=== PATIENT | male | born 1985 ===

== ENCOUNTER 2017-09-17 02:20 | Emergency (ER) | payer SELFPAY ==
--- NOTE | 2017-09-17 02:51 | C.PDOC ---
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 Patient has no chest pain at this time and is currently speaking in complete sentences. Denies fever, chills, nausea, or vomiting. Time Seen by Provider: 09/17/17 02:51 Chief Complaint (Nursing): Upper Extremity Problem/Injury History Per: Patient History/Exam Limitations: no limitations Onset/Duration Of Symptoms: Hrs Current Symptoms Are (Timing): Better Quality: "Pain" Severity: Mild Pain Scale Rating Of: 4 Recent travel outside of the [place]: No Past Medical History Reviewed: Historical Data, Nursing Documentation, Vital Signs Vital Signs: Last Vital Signs Temp 97.8 F 09/17/17 04:12 Pulse 55 L 09/17/17 04:12 Resp 16 09/17/17 04:12 BP 116/76 09/17/17 04:12 Pulse Ox 100 09/17/17 04:20 - Medical History PMH: No Chronic Diseases Surgical History: No Surg Hx Family History: States: Unknown Family Hx - Social History Hx Alcohol Use: Yes Hx Substance Use: No - Immunization History Hx Tetanus Toxoid Vaccination: No Hx Influenza Vaccination: No Hx Pneumococcal Vaccination: No Review Of Systems Constitutional: Negative for: Fever, Chills Cardiovascular: Positive for: Other ("Pounding" heart rate) Gastrointestinal: Negative for: Nausea, Vomiting Musculoskeletal: Positive for: Shoulder Pain (Left) Skin: Negative for: Rash Neurological: Negative for: Weakness Psych: Negative for: Anxiety Physical Exam - Physical Exam Appears: Non-toxic, No Acute Distress Skin: Warm, Dry Head: Normacephalic Eye(s): bilateral: Normal Inspection Oral Mucosa: Moist Neck: Supple Chest: Symmetrical, No Tenderness Cardiovascular: Rhythm Regular Respiratory: No Rales, No Rhonchi, No Wheezing Gastrointestinal/Abdominal: Soft, No Tenderness Back: Normal Inspection Extremity: Normal ROM Extremity: Bilateral: Atraumatic Pulses: Left Dorsalis Pedis: Normal, Right Dorsalis Pedis: Normal Neurological/Psych: Oriented x3, Normal Speech, Normal Cognition Gait: Steady ED Course And Treatment - Laboratory Results Result Diagrams: 09/17/17 03:13 09/17/17 03:13 ECG: Interpreted By Me, Viewed By Me ECG Rhythm: Sinus Rhythm (67), Nonspecific Changes O2 Sat by Pulse Oximetry: 100 Pulse Ox Interpretation: Normal Progress Note: EKG, blood work, and urinalysis ordered. Ecotrin administered. Reevaluation Time: 05:06 Reassessment Condition: Improved Medical Decision Making Medical Decision Making: I considered the following diagnoses: acute coronary syndrome, pulmonary embolism, lower respiratory infection, aortic dissection/aneurysm, pneumothorax , pericarditis, esophagitis/GERD, zoster and esophageal rupture but found them to be unlikely based on the history, physical exam, and diagnostics. My conclusions regarding the unlikely diagnoses were based on: the absence of significant EKG abnormalities, the lack of suggestive x-ray findings, the absence of significant abnormalities on cardiac monitoring, the absence of asymmetric pulses, Upon provider reevaluation patient is feeling better, is medically stable, and requires no further treatment in the ED at this time. Patient will be discharged home . Counseling was provided and all questions were answered regarding diagnosis and need for follow up with the referred clinic. There is agreement to discharge plan. Return if symptoms persist or worsen. Disposition Counseled Patient/Family Regarding: Studies Performed, Diagnosis, Need For Followup - Disposition Referrals: [facility] [Outside] [facility] [Outside] Disposition: HOME/ ROUTINE Disposition Time: 02:51 Condition: FAIR Instructions: Palpitations (ED) Forms: [employer] ([place]) Print Language: CHADIAN - Clinical Impression Clinical Impression: Palpitations - Scribe Statement The provider has reviewed the documentation as recorded by the Scribreina Chappell All medical record entries made by the Scribe were at my direction and personally dictated by me. I have reviewed the chart and agree that the record accurately reflects my personal performance of the history, physical exam, medical decision making, and the department course for this patient. I have also personally directed, reviewed, and agree with the discharge instructions and disposition.
[2017-09-17] MEDS ORDERED: Aspirin 325 mg EC Tablets PO STA (03:01)
[2017-09-17 03:24] LABS: CHLORIDE 100 mmol/L (98-107); SODIUM 134 mmol/L (132-148)
[2017-09-17 03:25] LABS: POTASSIUM 3.1 mmol/L (3.6-5.2)
[2017-09-17 03:27] LABS: ALB/GLOB RATIO 1.1 (1.0-2.1); ALKALINE PHOSPHATASE 93 U/L (38-126); ALT/SGPT 55 U/L (21-72); AST/SGOT 25 U/L (17-59); BILIRUBIN,TOTAL 0.5 mg/dL (0.2-1.3); BLOOD UREA NITROGEN 13 mg/dL (9-20); CARBON DIOXIDE 23 mmol/L (22-30); GFR AFRICAN-AMERICAN > 60; GLUCOSE,RANDOM 107 mg/dL (75-110); TOTAL PROTEIN 7.9 g/dL (6.3-8.3)
[2017-09-17 03:28] LABS: BASO # 0.1 K/uL (0.0-0.2); BASO % 0.5 % (0.0-2.0); CALCIUM 8.1 mg/dl (8.6-10.4); EOS # 0.3 K/uL (0.0-0.7); EOS % 2.7 % (0.0-4.0); HEMATOCRIT 42.5 % (35.0-51.0); LYMPH # 3.5 K/uL (1.0-4.3); LYMPH % 29.6 % (20.0-40.0); MEAN CELL VOLUME 82.3 fL (80.0-94.0); MEAN CORPUSCULAR HEMOGLOBIN 27.6 pg (27.0-31.0); MEAN CORPUSCULAR HGB CONC 33.5 g/dL (33.0-37.0); MEAN PLATELET VOLUME 7.9 fL (7.2-11.7); MONO # 0.8 K/uL (0.0-0.8); MONO % 7.1 % (0.0-10.0); RED CELL DISTRIBUTION WIDTH 13.7 % (11.5-14.5); WHITE BLOOD COUNT 11.8 K/uL (4.8-10.8)
[2017-09-17 04:16] VITALS: BP 116/76; PULSE 55; RESP 16; TEMP 97.8
[2017-09-17 04:17] VITALS: O2SAT 100
--- NOTE | 2017-09-18 21:42 | CARD ---
APPROVED REPORT EKG Measurement Heart [id number] <Conclusion> Normal sinus rhythm Normal ECG
== END 2017-09-17 05:09 | disposition home or self-care (01) ==
LOC: C.ER 02:20
DX: R00.2 Palpitations (principal)

== ENCOUNTER 2018-05-12 09:39 | Inpatient (IN) | payer OTHER ==
--- NOTE | 2018-05-12 10:04 | C.PDOC ---
History Of Present Illness Patient sent from [facility] for acute appendicitis to go to OR ( [facility] currently shut down due to humidity issues). Patient c/o mild RLQ pain, started on monday. Given Zosyn at [facility]. Time Seen by Provider: 05/12/18 09:40 Chief Complaint (Nursing): Abdominal Pain History Per: Patient History/Exam Limitations: no limitations Onset/Duration Of Symptoms: Days (2) Quality Of Discomfort: "Pain" Associated Symptoms: Nausea Past Medical History Reviewed: Historical Data, Nursing Documentation, Vital Signs Vital Signs: Last Vital Signs Temp 102.5 F H 05/13/18 08:38 Pulse 90 05/13/18 08:38 Resp 18 05/13/18 08:38 BP 120/63 05/13/18 08:38 Pulse Ox 97 05/13/18 08:38 - Medical History PMH: No Chronic Diseases Family History: States: No Known Family Hx - Social History Hx Alcohol Use: Yes Hx Substance Use: No - Immunization History Hx Tetanus Toxoid Vaccination: No Hx Influenza Vaccination: No Hx Pneumococcal Vaccination: No Review Of Systems Constitutional: Positive for: Fever, Chills Cardiovascular: Negative for: Chest Pain Respiratory: Negative for: Cough, Shortness of Breath Gastrointestinal: Positive for: Nausea, Vomiting, Abdominal Pain Genitourinary: Negative for: Dysuria Physical Exam - Physical Exam Appears: Well, Non-toxic, In Acute Distress (in mild pain ) Skin: Normal Color, Warm, Dry Oral Mucosa: Moist Cardiovascular: Rhythm Regular Respiratory: Normal Breath Sounds, No Rales, No Rhonchi, No Wheezing Gastrointestinal/Abdominal: Soft, Tenderness ((+) McBurney's ), No Distention, No Guarding, Rebound Back: Normal Inspection, No CVA Tenderness Neurological/Psych: Oriented x3 ED Course And Treatment - Laboratory Results Result Diagrams: 05/13/18 08:07 05/13/18 08:07 O2 Sat by Pulse Oximetry: 98 (RA) Pulse Ox Interpretation: Normal Progress Note: 10:00am- Called by [facility] radiologist, states patient has perforated appendicitis only, no diverticulitis. Patient febrile, tylenol IN ordered. He states he is currently comfortably, does not want pain medicaion. resident hall director Titi spoken with, patient to be admitted to Dr. Jame Shelton service for acute appendicitis. 11:15am- Called by surgery resident, requests patient be changed to medical admission instead of surgical under Dr. Shelton. Pending hospitalist call back. - Physician Consult Information Physician Contacted: Daisy Whitman Outcome Of Conversation: Discussed patient with hospitalist, she agree with admission for acute appendicitis with perforation with surgery on consult. Disposition - Disposition Disposition: HOSPITALIZED Disposition Time: 10:16 Condition: STABLE - Clinical Impression Clinical Impression: Acute perforated appendicitis Decision To Admit - Pt Status Changed To: Hospital Disposition Of: Inpatient - Admit Certification Admit to Inpatient:: After my assessment, the patient will require hospitalization for at least two midnights. This is because of the severity of symptoms shown, intensity of services needed, and/or the medical risk in this patient being treated as an outpatient. - InPatient: Physician Admission Certification:: see notes - . Bed Request Type: Regular Admitting Physician: Daisy Whitman Patient Diagnosis: Acute perforated appendicitis
[2018-05-12] MEDS: metroNIDAZOLE IV 500 mg/100 ml 500 MG/100 ML BAG IVPB SCH ×2 (12:21→21:00)
--- NOTE | 2018-05-12 12:41 | CP.PCM.HP ---
<Chas Jacoboemily - Last Filed: 05/12/18 20:25> History of Present Illness - History of Present Illness History of Present Illness: Patient was seen and examined in room 650A with sister present bedside. Patient is a FULL CODE status at this time. Patient's sister is his emergency contact. Her name is Sapna Rodriguez . She can be reached at [phone]. CC: abdominal pain HPI: 32 year old male with no past medical history significant presents with complaints of abdominal pain which started two days ago. Patient rated the pain as a 10/10 on . He states that the pain was located inferior to the umbilical region and radiated to the left and right lower quadrants over the course of the past two days. Patient admits to nausea and vomiting. He admits to three non bloody- non bilious episodes last night. He states that he has not eaten since when his symptoms started. Patient states that he decided to go to the [facility] ER when his symptoms did not resolve. Patient admits to subjective fevers. Patient denies chest pain, headaches, diarrhea, constipation at this point. Surgical team was consulted at [facility], however due to some operational difficulties, could not be surgically managed there. Patient was then transferred to [facility] here for ongoing management. PMHx- denies PSHx- denies Fam Hx- Mom has a pacemaker and HTN. Father has DM, Hypercholesterolemia and HTN. Maternal grandmother has DM, and was diagnosed with breast cancer at the age of 76. . Medications- Tylenol PRN Social- Admits to social alcohol use. Smokes 1-2 cigarettes a week for the past year. Denies illciit drug use Allergies- NKDA PMD- denies Present on Admission - Present on Admission Any Indicators Present on Admission: No Review of Systems - Review of Systems Systems not reviewed;Unavailable: Language Barrier - Constitutional Constitutional: Fever. absent: Weakness - EENT Eyes: absent: Blurred Vision, Change in Vision Ears: absent: Ear Pain, Dizziness Nose/Mouth/Throat: absent: Nasal Congestion - Cardiovascular Cardiovascular: absent: Chest Pain, Chest Pain at Rest, Dyspnea - Respiratory Respiratory: absent: Cough, Dyspnea - Gastrointestinal Gastrointestinal: Abdominal Pain, Nausea, Vomiting. absent: Diarrhea, Loose Stools - Genitourinary Genitourinary: Dysuria. absent: Hematuria - Musculoskeletal Musculoskeletal: Back Pain - Integumentary Integumentary: absent: Dry Skin, Swelling - Neurological Neurological: absent: Tremor, Weakness - Psychiatric Psychiatric: absent: Anxiety, Confusion, Hopelessness - Hematologic/Lymphatic Hematologic: absent: Easy Bleeding, Easy Bruising Past Patient History - Past Medical History & Family History Past Medical History?: No - Past Social History Smoking Status: Light Smoker < 10 Cigarettes Daily Alcohol: Social Drugs: Denies - MUSCULOSKELETAL/RHEUMATOLOGICAL Hx Falls: No - PSYCHIATRIC Hx Substance Use: No - SURGICAL HISTORY Hx Surgeries: No - ANESTHESIA Hx Anesthesia: No Hx Anesthesia Reactions: No Hx Malignant Hyperthermia: No Meds Allergies/Adverse Reactions: Allergies Allergy/AdvReac Type Severity Reaction Status Date / Time heparin Allergy ITCHING Verified 05/16/18 05:47 Physical Exam - Constitutional Appears: Non-toxic, No Acute Distress - Head Exam Head Exam: ATRAUMATIC, NORMAL INSPECTION, NORMOCEPHALIC - Eye Exam Eye Exam: EOMI, Normal appearance, PERRL. absent: Scleral icterus - ENT Exam ENT Exam: Mucous Membranes Moist - Neck Exam Neck exam: Positive for: Full Rom - Respiratory Exam Respiratory Exam: Clear to Auscultation Bilateral, NORMAL BREATHING PATTERN. absent: Wheezes - Cardiovascular Exam Cardiovascular Exam: REGULAR RHYTHM, +S1, +S2 - GI/Abdominal Exam GI & Abdominal Exam: Guarding, Rebound, Soft, Tenderness. absent: Distended, Firm, Rigid - Expanded GI/Abdominal Exam Expanded Expanded GI & Abdominal Exam: Rovsing's Sign, McBurney's Point Tenderness. absent: Pedersen's Sign - Extremities Exam Extremities exam: Positive for: full ROM, normal capillary refill, pedal edema, pedal pulses present - Back Exam Back exam: FULL ROM - Neurological Exam Neurological exam: Alert, Oriented x3 - Psychiatric Exam Psychiatric exam: Normal Affect, Normal Mood - Skin Skin Exam: Dry, Normal Color, Warm Results - Vital Signs Recent Vital Signs: Last Vital Signs Temp 101.4 F H 05/12/18 10:59 Pulse 86 05/12/18 10:59 Resp 18 05/12/18 10:59 BP 106/68 05/12/18 10:59 Pulse Ox 98 05/12/18 11:16 Assessment & Plan (1) Perforated appendicitis Assessment and Plan: CT imaging findings-Acute appendicitis with periappendiceal 2.6 x 2.5 cm phlegmonous collection of fluid and air without identified wall/ capsuleUnremarkable contrast enhanced CT of the abdomen and pelvis. In contradistinction to the preliminary report provided by [facility], there is no ileal diverticulitis ; the fluid collection described is related to appendiceal rupture. Sigmoid diverticulosis with mild nonspecific surrounding inflammatory change which may represent acute diverticulitis versus extension of inflammatory change from nearby appendiceal process. Refer to complete report NPO, IVF N/S at this time. On Flagyl and Meropenem for abx. Pain control at this time Tylenol PRN for fevers F/U Coags, AM labs, ESR F/U surgical and ID recommendations F/U EKG and CXR Status: Acute (2) Dysuria Assessment and Plan: F/U UA, UC Fluid Hydration Status: Acute (3) Electrolyte abnormality Assessment and Plan: Low Potassium- repleted Likely secondary to vomiting Monitor Status: Acute (4) Prophylactic measure Assessment and Plan: SCDs, Ambulates GI prophylaxis not currently indicated at this time Status: Acute <Daisy Whitman - Last Filed: 05/19/18 17:55> Results - Vital Signs Recent Vital Signs: Last Vital Signs Temp 98.8 F 05/19/18 15:00 Pulse 73 05/19/18 15:00 Resp 20 05/19/18 15:00 BP 117/76 05/19/18 15:00 Pulse Ox 97 05/19/18 15:00 - Labs Result Diagrams: 05/19/18 11:31 05/19/18 11:31 Labs: Laboratory Results - last 24 hr 05/18/18 05/19/18 05/19/18 22:46 11:31 11:31 WBC 22.9 H RBC 4.11 L Hgb 11.3 L D Hct 33.3 L MCV 81.2 MCH 27.5 MCHC 33.9 RDW 14.0 Plt Count 379 MPV 7.2 Neut % (Auto) 87.9 H Lymph % (Auto) 5.2 L Brooks % (Auto) 4.2 Eos % (Auto) 2.3 Baso % (Auto) 0.4 Neut # (Auto) 20.2 H Lymph # (Auto) 1.2 Brooks # (Auto) 1.0 H Eos # (Auto) 0.5 Baso # (Auto) 0.1 Neutrophils % (Manual) 85 H Band Neutrophils % 3 H Lymphocytes % (Manual) 5 L Monocytes % (Manual) 6 Eosinophils % (Manual) 1 Toxic Granulation Present Platelet Estimate Normal Polychromasia Slight Hypochromasia (manual) Slight Anisocytosis (manual) Slight Sodium 135 Potassium 3.8 Chloride 100 Carbon Dioxide 26 Anion Gap 13 BUN < 2 L Creatinine 0.6 L Est GFR ( Amer) > 60 Est GFR (Non-Af Amer) > 60 Random Glucose 136 H Calcium 7.9 L Phosphorus 2.2 L Magnesium 1.8 Total Bilirubin 0.6 AST 31 ALT 31 Alkaline Phosphatase 78 Total Protein 5.6 L Albumin 2.9 L Globulin 2.7 Albumin/Globulin Ratio 1.1 Urine Color Straw Urine Clarity Clear Urine pH 5.0 Ur Specific [place] 1.003 Urine Protein Negative Urine Glucose (UA) Normal Urine Ketones Negative Urine Blood 1+ H Urine Nitrate Negative Urine Bilirubin Negative Urine Urobilinogen Normal Ur Leukocyte Esterase Neg Urine WBC (Auto) 1 Urine RBC (Auto) < 1 Attending/Attestation - Attestation I have personally seen and examined this patient.: Yes I have fully participated in the care of the patient.: Yes I have reviewed all pertinent clinical information: Yes Notes (Text): Patient was seen and examined. History taken from the patient On examination he has tender lower abdomen with guarding,Not distended,no rigidity 05/19/18 17:48 05/19/18 17:54
[2018-05-12] MEDS: Piperacillin/Tazobact 3.375 GM in Sodium Chloride 100 ML IVPB SCH ×2 (12:50→18:15)
[2018-05-12] MEDS: Sodium Chloride 0.9% 1,000 ML IV SCH ×2 (12:52→19:12)
--- NOTE | 2018-05-12 14:22 | CP.PCM.CON ---
<Lorenzo Cox - Last Filed: 05/12/18 14:12> History of Present Illness - History of Present Illness History of Present Illness: 32M transfer from [facility] came in today complaining of new onset , sharp, constant right lower quadrant pain radiating to the back. It came on all of a sudden while he was at work. Pt has never experienced this type of pain before. He does not know if anything makes the pain better or worse. He has not tried any medications to improve the pain. He admits to having subjective fevers of unknown temperature and 3 episodes of NBNB vomiting on Monday evening. He has not had a bowel movement for the past 2 days, which is unusual for him. Admits to a loss of apetite. Denies any rectal bleeding or hematemesis. Denies any SOB, CP, or urinary symptoms. PMH: none PSH: none FH: Mother - pacemaker Social: socially drinks alcohol, no drugs or tobacco ALL: NKDA Meds: none Review of Systems - Constitutional Constitutional: Chills, Fever - EENT Eyes: absent: Blurred Vision, Change in Vision Ears: absent: Ear Discharge, Ear Pain Nose/Mouth/Throat: absent: Nasal Congestion, Tongue Swelling - Cardiovascular Cardiovascular: absent: Chest Pain, Dyspnea - Respiratory Respiratory: absent: Cough, Chest Congestion - Gastrointestinal Gastrointestinal: Abdominal Pain, Bloating, Nausea, Vomiting. absent: Change in Stool Character, Constipation - Genitourinary Genitourinary: absent: Dysuria, Hematuria - Musculoskeletal Musculoskeletal: Back Pain. absent: Abnormal Gait - Integumentary Integumentary: Dry Skin. absent: Erythema - Neurological Neurological: absent: Abnormal Gait, Abnormal Hearing - Psychiatric Psychiatric: absent: Visual Hallucinations, Tactile Hallucinations - Endocrine Endocrine: absent: Excessive Sweating, Palpitations - Hematologic/Lymphatic Hematologic: absent: Easy Bleeding, Easy Bruising Past Patient History - Infectious Disease Hx of Infectious Diseases: None - Tetanus Immunizations Tetanus Immunization: Unknown - Past Medical History & Family History Past Medical History?: No Past Family History: Reviewed and not pertinent - Past Social History Smoking Status: Never Smoked Chewing Tobacco Use: No Cigar Use: No Alcohol: Social Drugs: Denies - CARDIAC Hx Cardiac Disorders: No - PULMONARY Hx Respiratory Disorders: No - NEUROLOGICAL Hx Neurological Disorder: No - HEENT Hx HEENT Problems: No - RENAL Hx Chronic Kidney Disease: No - ENDOCRINE/METABOLIC Hx Endocrine Disorders: No - HEMATOLOGICAL/ONCOLOGICAL Hx Blood Disorders: No - INTEGUMENTARY Hx Dermatological Problems: No - MUSCULOSKELETAL/RHEUMATOLOGICAL Hx Musculoskeletal Disorders: No Hx Falls: No - GASTROINTESTINAL Hx Gastrointestinal Disorders: No Hx Bowel Surgery: No Hx Diverticulitis: No Hx Gastroesophageal Reflux: No - GENITOURINARY/GYNECOLOGICAL Hx Genitourinary Disorders: No - PSYCHIATRIC Hx Psychophysiologic Disorder: No Hx Substance Use: No - SURGICAL HISTORY Hx Surgeries: No - ANESTHESIA Hx Anesthesia: No Hx Anesthesia Reactions: No Hx Malignant Hyperthermia: No Meds Allergies/Adverse Reactions: Allergies Allergy/AdvReac Type Severity Reaction Status Date / Time No Known Allergies Allergy Verified 05/12/18 01:13 - Medications Medications: Current Medications Piperacillin Sod/Tazobactam (Sod 3.375 gm/ Sodium Chloride) 100 mls @ 200 mls/ hr IVPB Q6H [facility] PRN Reason: Protocol Last Admin: 05/12/18 12:50 Dose: 200 mls/hr Metronidazole (Flagyl) 500 mg in 100 mls @ 100 mls/hr IVPB Q8H [facility] PRN Reason: Protocol Last Admin: 05/12/18 12:21 Dose: 100 mls/hr Potassium Chloride (Potassium Chloride 20 Meq/100 Ml) 20 meq in 100 mls @ 50 mls/hr IVPB ONCE ONE Stop: 05/12/18 15:29 Sodium Chloride (Sodium Chloride 0.9%) 1,000 mls @ 130 mls/hr IV .Q7H42M [facility] Last Admin: 05/12/18 12:52 Dose: 130 mls/hr Morphine Sulfate (Morphine) 2 mg IVP Q4 PRN PRN Reason: Pain, moderate (4-7) Physical Exam - Constitutional Appears: Well, Non-toxic, No Acute Distress - Head Exam Head Exam: ATRAUMATIC, NORMAL INSPECTION, NORMOCEPHALIC - Eye Exam Eye Exam: EOMI, Normal appearance - ENT Exam ENT Exam: Mucous Membranes Moist, Normal Exam - Neck Exam Neck exam: Positive for: Full Rom, Normal Inspection - Respiratory Exam Respiratory Exam: Clear to Auscultation Bilateral, NORMAL BREATHING PATTERN - Cardiovascular Exam Cardiovascular Exam: REGULAR RHYTHM, +S1, +S2 - GI/Abdominal Exam GI & Abdominal Exam: Distended, Tenderness. absent: Guarding, Rebound - Back Exam Back exam: CVA tenderness (L) - Neurological Exam Neurological exam: Alert, Oriented x3 - Psychiatric Exam Psychiatric exam: Normal Affect, Normal Mood - Skin Skin Exam: Dry, Intact, Normal Color, Warm Results - Vital Signs Recent Vital Signs: Last Vital Signs Temp 101.4 F H 05/12/18 10:59 Pulse 86 05/12/18 10:59 Resp 18 05/12/18 10:59 BP 106/68 05/12/18 10:59 Pulse Ox 98 05/12/18 11:16 Assessment & Plan - Assessment and Plan (Free Text) Assessment: 32M w/ Perforated Appendix and abscess Plan: NPO diet IVF IV Abx - zosyn and flagyl - ID consulted I and Os c/w pain control serial abdominal exams IR consult for drainage of abscess further recs per Dr. Nkiita Cox PGY1 - Date & Time Date: 05/12/18 Time: 14:49 <Doni Shelton - Last Filed: 05/14/18 18:40> Meds - Medications Medications: Current Medications Acetaminophen (Tylenol 325mg Tab) 650 mg PO Q6H PRN PRN Reason: Fever >100.4 F Last Admin: 05/13/18 16:45 Dose: 650 mg Metronidazole (Flagyl) 500 mg in 100 mls @ 100 mls/hr IVPB Q8H [facility] PRN Reason: Protocol Last Admin: 05/14/18 13:12 Dose: 100 mls/hr Sodium Chloride (Sodium Chloride 0.9%) 1,000 mls @ 130 mls/hr IV .Q7H42M [facility] Last Admin: 05/14/18 17:48 Dose: 130 mls/hr Meropenem 1 gm/ Sodium (Chloride) 100 mls @ 100 mls/hr IVPB Q8 [facility] PRN Reason: Protocol Last Admin: 05/14/18 14:25 Dose: 100 mls/hr Potassium Phosphate 15 mmole/ (Sodium Chloride) 255 mls @ 63 mls/hr IV ONCE ONE Stop: 05/14/18 22:32 Last Admin: 05/14/18 17:47 Dose: 63 mls/hr Gentamicin Sulfate 90 mg/ (Sodium Chloride) 102.25 mls @ 100 mls/hr IVPB Q8H [facility] PRN Reason: Protocol Last Admin: 05/14/18 17:46 Dose: 100 mls/hr Morphine Sulfate (Morphine) 2 mg IVP Q4 PRN PRN Reason: Pain, moderate (4-7) Last Admin: 05/14/18 18:28 Dose: 2 mg Results - Vital Signs Recent Vital Signs: Last Vital Signs Temp 99.2 F 05/14/18 15:52 Pulse 88 05/14/18 15:52 Resp 20 05/14/18 15:52 BP 115/66 05/14/18 15:52 Pulse Ox 99 05/14/18 15:52 - Labs Result Diagrams: 05/14/18 07:39 05/14/18 07:39 Labs: Laboratory Results - last 24 hr 05/13/18 05/14/18 05/14/18 07:18 07:39 07:39 WBC 17.1 H RBC 4.22 L Hgb 11.6 L Hct 34.9 L MCV 82.7 MCH 27.4 MCHC 33.2 RDW 13.7 Plt Count 254 MPV 7.8 Neut % (Auto) 83.1 H Lymph % (Auto) 8.7 L [place] % (Auto) 7.9 Eos % (Auto) 0.1 Baso % (Auto) 0.2 Neut # (Auto) 14.2 H Lymph # (Auto) 1.5 [place] # (Auto) 1.3 H Eos # (Auto) 0.0 Baso # (Auto) 0.0 Neutrophils % (Manual) 84 H Band Neutrophils % 4 H Lymphocytes % (Manual) 8 L Monocytes % (Manual) 3 Basophils % (Manual) 1 Platelet Estimate Normal Ovalocytes Slight Sodium 138 Potassium 3.9 Chloride 107 Carbon Dioxide 18 L Anion Gap 17 BUN 8 L Creatinine 0.7 L Est GFR ( Amer) > 60 Est GFR (Non-Af Amer) > 60 Random Glucose 97 Calcium 7.9 L Phosphorus 2.0 L Magnesium 1.9 Total Bilirubin 0.6 AST 19 ALT 28 Alkaline Phosphatase 78 Total Protein 6.0 L Albumin 3.2 L Globulin 2.8 Albumin/Globulin Ratio 1.2 Gentamicin Peak 1.3 L Assessment & Plan - Assessment and Plan (Free Text) Plan: I personally saw and examined the patient with the resident staff and agree with the above assessment and plan. I personally reviewed the available diagnostic images and imaging reports. 32 Male abdominal pain since , acute perforated appendicitis with phlegmon/contained evolving abscess, with focal peritonitis, elevated WBC and fevers. NPO, broadspectrum antibiotics, IVF , monitor I/O. IR consult for drainage and source control. Continue non- operative management as long as patient responds to antibiotis and drainage. Threshold for operative exploration would be hemodynamic instability, persistent fevers, diffuse / worsening peritonitis. Will need interval appendectomy after discharge.
[2018-05-12] MEDS: Meropenem 1 GM in Sodium Chloride 0.9% 100 ML IVPB SCH (21:11)
[2018-05-12 23:13] LABS: URINE BACTERIA OCC (<OCC); URINE BILIRUBIN NEGATIVE (NEGATIVE); URINE BLOOD 1+ (NEGATIVE); URINE CLARITY Clear (Clear); URINE COLOR Yellow (YELLOW); URINE GLUCOSE (UA) NORMAL (Normal); URINE LEUKOCYTE ESTERASE NEG Leu/uL (Negative); URINE PROTEIN 1+ mg/dL (NEGATIVE)
[2018-05-13] MEDS: Sodium Chloride 0.9% 1,000 ML IV SCH ×3 (01:55→18:31)
[2018-05-13] MEDS: metroNIDAZOLE IV 500 mg/100 ml 500 MG/100 ML BAG IVPB SCH ×3 (05:02→21:16)
[2018-05-13] MEDS: Meropenem 1 GM in Sodium Chloride 0.9% 100 ML IVPB SCH ×3 (05:07→22:00)
--- NOTE | 2018-05-13 08:11 | CP.PCM.PN ---
<Shaw Reed - Last Filed: 05/13/18 09:00> Subjective - Date & Time of Evaluation Date of Evaluation: 05/13/18 Time of Evaluation: 08:09 - Subjective Subjective: Surgery: Dr. Shelton Pt seen and examined. Resting comfortably in bed. Febrile overnight. States that pain is improved. No N/V. +Flatus/BM. Objective - Vital Signs/Intake and Output Vital Signs (last 24 hours): Temp Pulse Resp BP Pulse Ox 99.6 F 79 20 100/61 96 05/13/18 06:53 05/12/18 23:15 05/12/18 23:15 05/12/18 23:15 05/12/18 23:15 Intake and Output: 05/13/18 05/13/18 06:59 18:59 Intake Total 920 Output Total 800 Balance 120 - Medications Medications: Current Medications Acetaminophen (Tylenol 325mg Tab) 650 mg PO Q6H PRN PRN Reason: Fever >100.4 F Last Admin: 05/13/18 06:02 Dose: 650 mg Metronidazole (Flagyl) 500 mg in 100 mls @ 100 mls/hr IVPB Q8H [facility] PRN Reason: Protocol Last Admin: 05/13/18 05:02 Dose: 100 mls/hr Sodium Chloride (Sodium Chloride 0.9%) 1,000 mls @ 130 mls/hr IV .Q7H42M [facility] Last Admin: 05/13/18 03:10 Dose: Not Given Meropenem 1 gm/ Sodium (Chloride) 100 mls @ 100 mls/hr IVPB Q8 [facility] PRN Reason: Protocol Last Admin: 05/13/18 05:07 Dose: 100 mls/hr Morphine Sulfate (Morphine) 2 mg IVP Q4 PRN PRN Reason: Pain, moderate (4-7) Last Admin: 05/13/18 01:56 Dose: 2 mg - Constitutional Appears: Non-toxic, No Acute Distress - Head Exam Head Exam: ATRAUMATIC, NORMOCEPHALIC - Eye Exam Eye Exam: EOMI - ENT Exam ENT Exam: Mucous Membranes Moist - Neck Exam Neck Exam: Full ROM - Respiratory Exam Respiratory Exam: NORMAL BREATHING PATTERN. absent: Accessory Muscle Use, Respiratory Distress - GI/Abdominal Exam GI & Abdominal Exam: Soft, Tenderness (RLQ). absent: Distended, Firm, Guarding , Rigid, Rebound - Extremities Exam Extremities Exam: absent: Calf Tenderness, Pedal Edema - Neurological Exam Neurological Exam: Alert, Awake, Oriented x3 - Psychiatric Exam Psychiatric exam: Normal Affect, Normal Mood Assessment and Plan - Assessment and Plan (Free Text) Assessment: 32M w. acute appendicitis -NPO -IVF -abx -f/u AM labs -serial abd exams -Repeat CT A/P tomorrow -will follow closely, if not improvement will plan for OR -will d/w attending Karissaitis PGY4 <Doni Shelton - Last Filed: 05/14/18 18:42> Objective - Vital Signs/Intake and Output Vital Signs (last 24 hours): Temp Pulse Resp BP Pulse Ox 99.2 F 88 20 115/66 99 05/14/18 15:52 05/14/18 15:52 05/14/18 15:52 05/14/18 15:52 05/14/18 15:52 Intake and Output: 05/14/18 05/14/18 06:59 18:59 Intake Total 920 800 Output Total 225 Balance 920 575 - Medications Medications: Current Medications Acetaminophen (Tylenol 325mg Tab) 650 mg PO Q6H PRN PRN Reason: Fever >100.4 F Last Admin: 05/13/18 16:45 Dose: 650 mg Metronidazole (Flagyl) 500 mg in 100 mls @ 100 mls/hr IVPB Q8H [facility] PRN Reason: Protocol Last Admin: 05/14/18 13:12 Dose: 100 mls/hr Sodium Chloride (Sodium Chloride 0.9%) 1,000 mls @ 130 mls/hr IV .Q7H42M [facility] Last Admin: 05/14/18 17:48 Dose: 130 mls/hr Meropenem 1 gm/ Sodium (Chloride) 100 mls @ 100 mls/hr IVPB Q8 [facility] PRN Reason: Protocol Last Admin: 05/14/18 14:25 Dose: 100 mls/hr Potassium Phosphate 15 mmole/ (Sodium Chloride) 255 mls @ 63 mls/hr IV ONCE ONE Stop: 05/14/18 22:32 Last Admin: 05/14/18 17:47 Dose: 63 mls/hr Gentamicin Sulfate 90 mg/ (Sodium Chloride) 102.25 mls @ 100 mls/hr IVPB Q8H [facility] PRN Reason: Protocol Last Admin: 05/14/18 17:46 Dose: 100 mls/hr Morphine Sulfate (Morphine) 2 mg IVP Q4 PRN PRN Reason: Pain, moderate (4-7) Last Admin: 05/14/18 18:28 Dose: 2 mg - Labs Labs: 05/14/18 07:39 05/14/18 07:39 PT 15.7 SECONDS (9.7-12.2) H 05/13/18 08:07 INR 1.4 05/13/18 08:07 APTT 34 SECONDS (21-34) 05/13/18 08:07 Assessment and Plan - Assessment and Plan (Free Text) Plan: Slight improvement in pain and WBC coming down. No diffuse peritonitis or HD instability. Continue supportive care and current treatment. Repeat CTAP with PO and IV contrast Monday for interval change and evolution of abscess/ inflammation for IR intervention.
--- NOTE | 2018-05-13 08:19 | RAD ---
HISTORY: pre op COMPARISON: No prior. FINDINGS: LUNGS: No active pulmonary disease. PLEURA: No significant pleural effusion identified, no pneumothorax apparent. CARDIOVASCULAR: Normal. OSSEOUS STRUCTURES: No significant abnormalities. VISUALIZED UPPER ABDOMEN: Normal. OTHER FINDINGS: None. IMPRESSION: No active disease.
[2018-05-13 08:25] LABS: BASO % 0.1 % (0.0-2.0); LYMPH # 1.5 K/uL (1.0-4.3); LYMPH % 7.1 % (20.0-40.0); MEAN CORPUSCULAR HEMOGLOBIN 27.8 pg (27.0-31.0); MEAN CORPUSCULAR HGB CONC 33.9 g/dL (33.0-37.0); MEAN PLATELET VOLUME 8.2 fL (7.2-11.7); MONO # 1.6 K/uL (0.0-0.8); MONO % 7.9 % (0.0-10.0); NEUT # 17.4 K/uL (1.8-7.0); NEUT % 84.9 % (50.0-75.0); PLATELET COUNT 224 K/uL (130-400); RBC 4.13 Mil/uL (4.40-5.90); RED CELL DISTRIBUTION WIDTH 13.8 % (11.5-14.5)
[2018-05-13 08:28] LABS: INR 1.4; PROTHROMBIN TIME 15.7 SECONDS (9.7-12.2)
[2018-05-13 08:33] LABS: HEMOGLOBIN 11.5 g/dL (12.0-18.0); WHITE BLOOD COUNT 20.5 K/uL (4.8-10.8)
[2018-05-13 08:35] LABS: ALB/GLOB RATIO 1.3 (1.0-2.1); ALBUMIN 3.4 g/dL (3.5-5.0); ALT/SGPT 26 U/L (21-72); AST/SGOT 17 U/L (17-59); BLOOD UREA NITROGEN 7 mg/dL (9-20); GFR AFRICAN-AMERICAN > 60; GFR NON-AFRICAN AMERICAN > 60
[2018-05-13 10:23] LABS: BANDS 2 % (0-2); LYMPHOCYTE 6 % (20-40); MONOCYTE 8 % (0-10); NEUTROPHIL 84 % (50-75); PLATELET ESTIMATE NORMAL (NORMAL); TOTAL CELLS COUNTED 100
--- NOTE | 2018-05-13 12:17 | CP.PCM.PN ---
<Roque Jacobo - Last Filed: 05/13/18 15:33> Subjective - Date & Time of Evaluation Date of Evaluation: 05/13/18 Time of Evaluation: 07:45 - Subjective Subjective: PGY 3 Med progress Note - Dr. Whitman's Service Patient seen and examined in no apparent acute distress. Patient states that he had three episodes of diarrhea yesterday. Patient states that his pain is mildly improved- Rating his pain a 5-6. He states that he is ambulating without difficulty. He denies nausea, vomiting, headaches, chest pain, palpitations or urinary symptoms at this time. Objective - Vital Signs/Intake and Output Vital Signs (last 24 hours): Temp Pulse Resp BP Pulse Ox 102.5 F H 90 18 120/63 97 05/13/18 08:38 05/13/18 08:38 05/13/18 08:38 05/13/18 08:38 05/13/18 08:38 Intake and Output: 05/13/18 05/13/18 06:59 18:59 Intake Total 920 Output Total 800 Balance 120 - Medications Medications: Current Medications Acetaminophen (Tylenol 325mg Tab) 650 mg PO Q6H PRN PRN Reason: Fever >100.4 F Last Admin: 05/13/18 06:02 Dose: 650 mg Metronidazole (Flagyl) 500 mg in 100 mls @ 100 mls/hr IVPB Q8H [facility] PRN Reason: Protocol Last Admin: 05/13/18 05:02 Dose: 100 mls/hr Sodium Chloride (Sodium Chloride 0.9%) 1,000 mls @ 130 mls/hr IV .Q7H42M [facility] Last Admin: 05/13/18 03:10 Dose: Not Given Meropenem 1 gm/ Sodium (Chloride) 100 mls @ 100 mls/hr IVPB Q8 [facility] PRN Reason: Protocol Last Admin: 05/13/18 05:07 Dose: 100 mls/hr Morphine Sulfate (Morphine) 2 mg IVP Q4 PRN PRN Reason: Pain, moderate (4-7) Last Admin: 05/13/18 01:56 Dose: 2 mg - Labs Labs: 05/13/18 08:07 05/13/18 08:07 PT 15.7 SECONDS (9.7-12.2) H 05/13/18 08:07 INR 1.4 05/13/18 08:07 APTT 34 SECONDS (21-34) 05/13/18 08:07 - Constitutional Appears: Non-toxic, No Acute Distress - Head Exam Head Exam: ATRAUMATIC, NORMAL INSPECTION - Eye Exam Eye Exam: EOMI, Normal appearance - ENT Exam ENT Exam: Mucous Membranes Moist - Neck Exam Neck Exam: Full ROM - Respiratory Exam Respiratory Exam: NORMAL BREATHING PATTERN - Cardiovascular Exam Cardiovascular Exam: +S1, +S2 - GI/Abdominal Exam GI & Abdominal Exam: Guarding (some), Soft, Tenderness (RLQ), Normal Bowel Sounds. absent: Firm - Extremities Exam Extremities Exam: Full ROM, Normal Capillary Refill. absent: Pedal Edema, Tenderness - Back Exam Back Exam: Full ROM - Neurological Exam Neurological Exam: Alert, Awake, CN II-XII Intact, Normal Gait, Oriented x3 - Psychiatric Exam Psychiatric exam: Normal Affect, Normal Mood - Skin Skin Exam: Dry, Normal Color, Warm Assessment and Plan (1) Perforated appendicitis Status: Acute (2) Dysuria Status: Acute (3) Electrolyte abnormality Status: Acute (4) Prophylactic measure Status: Acute - Assessment and Plan (Free Text) Assessment: (1) Perforated appendicitis Assessment and Plan: CT imaging findings-Acute appendicitis with periappendiceal 2.6 x 2.5 cm phlegmonous collection of fluid and air without identified wall/capsule. Unremarkable contrast enhanced CT of the abdomen and pelvis. In contradistinction to the preliminary report provided by [facility], there is no ileal diverticulitis ; the fluid collection described is related to appendiceal rupture. Sigmoid diverticulosis with mild nonspecific surrounding inflammatory change which may represent acute diverticulitis versus extension of inflammatory change from nearby appendiceal process. Refer to complete report Monitor bowel movements Will give patient trial period of antibiotics at this time. If there is no improvement, patient may require surgical intervention. NPO, IVF N/S at this time. On Flagyl and Meropenem for antibiotic coverage started 05/12/18. Pain control at this time Tylenol PRN for fevers INR 1.4 ESR elevated F/U surgical and ID recommendations. Surgery will repeat CT after trial of antibiotics . CXR - no signs of active disease EKG- NSR noted at approx 85 BPM Status: Acute (2) Dysuria Assessment and Plan: UA negative UC F/U Fluid Hydration Status: Acute (3) Electrolyte abnormality Assessment and Plan: Low Potassium- repleted Likely secondary to diarrhea Monitor Status: Acute (4) Prophylactic measure Assessment and Plan: SCDs, Ambulates GI prophylaxis not currently indicated at this time Status: Acute <Mtathew Whitmanshaunrochelle - Last Filed: 05/26/18 13:45> Objective - Vital Signs/Intake and Output Vital Signs (last 24 hours): Temp Pulse Resp BP Pulse Ox 97.8 F 68 20 116/74 98 05/25/18 07:00 05/25/18 07:00 05/25/18 07:00 05/25/18 07:00 05/25/18 07:00 - Labs Labs: 05/25/18 06:21 05/25/18 06:21 PT 14.2 SECONDS (9.7-12.2) H 05/21/18 19:48 INR 1.3 05/21/18 19:48 APTT 48 SECONDS (21-34) H 05/21/18 19:48 Attending/Attestation - Attestation I have personally seen and examined this patient.: Yes I have fully participated in the care of the patient.: Yes I have reviewed all pertinent clinical information, including history, physical exam and plan: Yes Notes (Text): Seen and examined and discussed with the resident Patient has abdominal pain and on examination has tenderness with guarding,no rigidity Continue antibiotics as per Id Follow sugery recommendation I agree with the resident's documentation of the assessment and the plan
--- NOTE | 2018-05-13 14:05 | CP.PCM.CON ---
History of Present Illness - History of Present Illness History of Present Illness: dictated Past Patient History - Infectious Disease Hx of Infectious Diseases: None - Tetanus Immunizations Tetanus Immunization: Unknown - Past Medical History & Family History Past Medical History?: No - Past Social History Smoking Status: Light Smoker < 10 Cigarettes Daily Alcohol: Social Drugs: Denies - CARDIAC Hx Cardiac Disorders: No - PULMONARY Hx Respiratory Disorders: No - NEUROLOGICAL Hx Neurological Disorder: No - HEENT Hx HEENT Problems: No - RENAL Hx Chronic Kidney Disease: No - ENDOCRINE/METABOLIC Hx Endocrine Disorders: No - HEMATOLOGICAL/ONCOLOGICAL Hx Blood Disorders: No - INTEGUMENTARY Hx Dermatological Problems: No - MUSCULOSKELETAL/RHEUMATOLOGICAL Hx Falls: No - GASTROINTESTINAL Hx Gastrointestinal Disorders: No Hx Bowel Surgery: No Hx Diverticulitis: No Hx Gastroesophageal Reflux: No - GENITOURINARY/GYNECOLOGICAL Hx Genitourinary Disorders: No - PSYCHIATRIC Hx Substance Use: No - SURGICAL HISTORY Hx Surgeries: No - ANESTHESIA Hx Anesthesia: No Hx Anesthesia Reactions: No Hx Malignant Hyperthermia: No Meds Allergies/Adverse Reactions: Allergies Allergy/AdvReac Type Severity Reaction Status Date / Time No Known Allergies Allergy Verified 05/12/18 01:13 - Medications Medications: Current Medications Acetaminophen (Tylenol 325mg Tab) 650 mg PO Q6H PRN PRN Reason: Fever >100.4 F Last Admin: 05/13/18 06:02 Dose: 650 mg Metronidazole (Flagyl) 500 mg in 100 mls @ 100 mls/hr IVPB Q8H [facility] PRN Reason: Protocol Last Admin: 05/13/18 05:02 Dose: 100 mls/hr Sodium Chloride (Sodium Chloride 0.9%) 1,000 mls @ 130 mls/hr IV .Q7H42M [facility] Last Admin: 05/13/18 03:10 Dose: Not Given Meropenem 1 gm/ Sodium (Chloride) 100 mls @ 100 mls/hr IVPB Q8 [facility] PRN Reason: Protocol Last Admin: 05/13/18 05:07 Dose: 100 mls/hr Potassium Chloride (Potassium Chloride 20 Meq/100 Ml) 20 meq in 100 mls @ 50 mls/hr IVPB ONCE ONE Stop: 05/13/18 14:17 Morphine Sulfate (Morphine) 2 mg IVP Q4 PRN PRN Reason: Pain, moderate (4-7) Last Admin: 05/13/18 01:56 Dose: 2 mg Results - Vital Signs Recent Vital Signs: Last Vital Signs Temp 102.5 F H 05/13/18 08:38 Pulse 90 05/13/18 08:38 Resp 18 05/13/18 08:38 BP 120/63 05/13/18 08:38 Pulse Ox 98 05/13/18 13:56 - Labs Result Diagrams: 05/13/18 08:07 05/13/18 08:07 Labs: Laboratory Results - last 24 hr 05/12/18 05/13/18 05/13/18 20:00 08:07 08:07 WBC 20.5 H D RBC 4.13 L Hgb 11.5 L D Hct 33.9 L MCV 82.0 MCH 27.8 MCHC 33.9 RDW 13.8 Plt Count 224 MPV 8.2 Neut % (Auto) 84.9 H Lymph % (Auto) 7.1 L Centre % (Auto) 7.9 Eos % (Auto) 0.0 Baso % (Auto) 0.1 Neut # (Auto) 17.4 H Lymph # (Auto) 1.5 Centre # (Auto) 1.6 H Eos # (Auto) 0.0 Baso # (Auto) 0.0 Neutrophils % (Manual) 84 H Band Neutrophils % 2 Lymphocytes % (Manual) 6 L Monocytes % (Manual) 8 Platelet Estimate Normal RBC Morphology Normal ESR 70 H PT INR APTT Sodium 139 Potassium 3.5 L Chloride 105 Carbon Dioxide 21 L Anion Gap 17 BUN 7 L Creatinine 0.7 L Est GFR ( Amer) > 60 Est GFR (Non-Af Amer) > 60 Random Glucose 96 Calcium 8.0 L Phosphorus 1.9 L Magnesium 1.9 Total Bilirubin 1.3 AST 17 D ALT 26 Alkaline Phosphatase 100 Total Protein 6.1 L Albumin 3.4 L Globulin 2.6 Albumin/Globulin Ratio 1.3 Urine Color Yellow Urine Clarity Clear Urine pH 5.0 Ur Specific [place] 1.024 Urine Protein 1+ H Urine Glucose (UA) Normal Urine Ketones 2+ H Urine Blood 1+ H Urine Nitrate Negative Urine Bilirubin Negative Urine Urobilinogen 4.0 Ur Leukocyte Esterase Neg Urine WBC (Auto) 5 Urine RBC (Auto) 8 H Urine Bacteria Occ H 05/13/18 08:07 WBC RBC Hgb Hct MCV MCH MCHC RDW Plt Count MPV Neut % (Auto) Lymph % (Auto) Centre % (Auto) Eos % (Auto) Baso % (Auto) Neut # (Auto) Lymph # (Auto) Centre # (Auto) Eos # (Auto) Baso # (Auto) Neutrophils % (Manual) Band Neutrophils % Lymphocytes % (Manual) Monocytes % (Manual) Platelet Estimate RBC Morphology ESR PT 15.7 H INR 1.4 APTT 34 Sodium Potassium Chloride Carbon Dioxide Anion Gap BUN Creatinine Est GFR ( Amer) Est GFR (Non-Af Amer) Random Glucose Calcium Phosphorus Magnesium Total Bilirubin AST ALT Alkaline Phosphatase Total Protein Albumin Globulin Albumin/Globulin Ratio Urine Color Urine Clarity Urine pH Ur Specific [place] Urine Protein Urine Glucose (UA) Urine Ketones Urine Blood Urine Nitrate Urine Bilirubin Urine Urobilinogen Ur Leukocyte Esterase Urine WBC (Auto) Urine RBC (Auto) Urine Bacteria
[2018-05-13] MEDS ORDERED: Gentamicin 80 mg in 0.9% NS 80 MG/100 ML BAG IVPB SCH (15:00)
--- NOTE | 2018-05-14 00:50 | CON ---
DATE: 05/13/2018 HISTORY OF PRESENT ILLNESS: The patient is a 32-year-old male. He has no previous past medical history. Started to have abdominal pain. He was admitted on 05/12/2018. He says he had abdominal pain since . Pain was 10/10. It is on the left lower quadrant. He was also having nausea and vomiting. He was using only acetaminophen, he says. He decided to go to the [place] ER when his symptoms did not resolve. He was having subjective fevers. He feels little better at this time. He is on IV antibiotics. He is still febrile this morning. ALLERGIES: HE IS NOT ALLERGIC TO ANY MEDICATION. He says no previous surgeries, no past medical history. PAST SURGICAL HISTORY: No previous surgeries. PAST MEDICAL HISTORY: No past medical history. FAMILY HISTORY: Mother having a pacemaker and hypertension. Father has diabetes, high cholesterol, and hypertension. SOCIAL HISTORY: He drinks alcohol socially. Smokes one to two cigarettes a day. Denies any drug abuse. REVIEW OF SYSTEMS: He was admitted here with subjective fevers and having abdominal pain, nausea, and vomiting. Diarrhea reported. He denies any ears, nose, or throat symptoms. Denies any chest pain. No shortness of breath. No cough or cold. Does come in with abdominal pain. Denies any urinary symptoms. He was having dysuria when he came in and back pain also. No psych issues. No heme/onc issues history as above. PAST MEDICAL HISTORY: Noncontributory. He has no history of any anesthesia before. MEDICATIONS: He was on Zosyn and Flagyl. We changed it to meropenem and Flagyl last night. He is getting some replacement potassium, and he is supposed to be on IV fluids. PHYSICAL EXAMINATION: VITAL SIGNS: I find his temperature is 102.5 today, pulse is 90, blood pressure 120/63, and respirations 18. He is spiking. HEENT: Head is atraumatic and normocephalic. Pupils are reacting to light. Tongue is moist. NECK: Supple. LUNGS: Clear. No crackles or rales present. HEART: S1, S2 are regular. ABDOMEN: He has tenderness to the left of the pubic area. No guarding, no rigidity present. EXTREMITIES: Have no edema, clubbing, or cyanosis. LABORATORY DATA: Labs are noted. Labs show white count is 20.5, hemoglobin 11.5, hematocrit 33.9, and platelet count is 224. He is asking for . Sodium is 139, potassium 3.5, chlorides are 105, CO2 is 21. UA shows wbc's 5. He had a chest x-ray. Chest x-ray shows no active disease. He also had abdominal CT on 05/12/2018, which is yesterday and that showed acute appendicitis with periappendicitis, 2.6 x 2.5 phlegmon collection of fluid and he had without identified wall, capsule remarkable. Contrast CT of abdomen, there is no ideal diverticulitis. The fluid collection described as related to appendiceal rupture. ASSESSMENT AND PLAN: So, he has appendiceal rupture at this time. I would suggest to have fluids to continue. We restarted meropenem and can add gentamicin to it and Flagyl and continue and see if it is localized, IR can drain it and to give IV fluids with potassium at this time. We will follow. Wallace Hamlin MD
[2018-05-14] MEDS: Sodium Chloride 0.9% 1,000 ML IV SCH ×3 (02:15→17:48)
[2018-05-14] MEDS: metroNIDAZOLE IV 500 mg/100 ml 500 MG/100 ML BAG IVPB SCH ×3 (04:17→20:55)
[2018-05-14] MEDS: Meropenem 1 GM in Sodium Chloride 0.9% 100 ML IVPB SCH ×3 (05:14→21:59)
[2018-05-14 07:51] LABS: BASO % 0.2 % (0.0-2.0); EOS % 0.1 % (0.0-4.0); HEMOGLOBIN 11.6 g/dL (12.0-18.0); LYMPH # 1.5 K/uL (1.0-4.3); LYMPH % 8.7 % (20.0-40.0); MEAN CELL VOLUME 82.7 fL (80.0-94.0); MEAN CORPUSCULAR HEMOGLOBIN 27.4 pg (27.0-31.0); MEAN CORPUSCULAR HGB CONC 33.2 g/dL (33.0-37.0); MEAN PLATELET VOLUME 7.8 fL (7.2-11.7); MONO # 1.3 K/uL (0.0-0.8); MONO % 7.9 % (0.0-10.0); NEUT # 14.2 K/uL (1.8-7.0); NEUT % 83.1 % (50.0-75.0); PLATELET COUNT 254 K/uL (130-400); RBC 4.22 Mil/uL (4.40-5.90); RED CELL DISTRIBUTION WIDTH 13.7 % (11.5-14.5); WHITE BLOOD COUNT 17.1 K/uL (4.8-10.8)
[2018-05-14 08:16] LABS: ALB/GLOB RATIO 1.2 (1.0-2.1); ALBUMIN 3.2 g/dL (3.5-5.0); ALT/SGPT 28 U/L (21-72); AST/SGOT 19 U/L (17-59); BLOOD UREA NITROGEN 8 mg/dL (9-20); CALCIUM 7.9 mg/dl (8.6-10.4); GFR AFRICAN-AMERICAN > 60; GFR NON-AFRICAN AMERICAN > 60
[2018-05-14] MEDS ORDERED: Iohexol 240 (50 ml) PO ONE (08:30)
--- NOTE | 2018-05-14 09:23 | CP.PCM.PN ---
Subjective - Date & Time of Evaluation Date of Evaluation: 05/14/18 Time of Evaluation: 09:20 - Subjective Subjective: PGY1 Resident Note for Dr. Juan Carlos Romero Pt seen and examined at bedside. Pt had no overnight events. Pt lying in bed, no acute distress. Pt states he is still having small amount of lower abdominal pain, bilaterally, that is also present bilateral lower back. Pt rates the pain about a 5/10. Pt states he also had 3 episodes of watery diarrhea today. Pt denies chest pain, difficulty breathing, constipation, nausea, vomiting. Pt is ambulating well and has no other complaints. Objective - Vital Signs/Intake and Output Vital Signs (last 24 hours): Temp Pulse Resp BP Pulse Ox 99.6 F 77 18 114/66 97 05/14/18 07:00 05/14/18 07:00 05/14/18 07:00 05/14/18 07:00 05/14/18 07:00 Intake and Output: 05/14/18 05/14/18 06:59 18:59 Intake Total 920 Balance 920 - Medications Medications: Current Medications Acetaminophen (Tylenol 325mg Tab) 650 mg PO Q6H PRN PRN Reason: Fever >100.4 F Last Admin: 05/13/18 16:45 Dose: 650 mg Metronidazole (Flagyl) 500 mg in 100 mls @ 100 mls/hr IVPB Q8H [facility] PRN Reason: Protocol Last Admin: 05/14/18 04:17 Dose: 100 mls/hr Sodium Chloride (Sodium Chloride 0.9%) 1,000 mls @ 130 mls/hr IV .Q7H42M [facility] Last Admin: 05/14/18 04:16 Dose: 130 mls/hr Meropenem 1 gm/ Sodium (Chloride) 100 mls @ 100 mls/hr IVPB Q8 [facility] PRN Reason: Protocol Last Admin: 05/14/18 05:14 Dose: 100 mls/hr Gentamicin Sulfate 80 mg/ (Sodium Chloride) 102 mls @ 100 mls/hr IVPB Q8H [facility] PRN Reason: Protocol Last Admin: 05/14/18 06:21 Dose: 100 mls/hr Morphine Sulfate (Morphine) 2 mg IVP Q4 PRN PRN Reason: Pain, moderate (4-7) Last Admin: 05/14/18 05:14 Dose: 2 mg - Labs Labs: 05/14/18 07:39 05/14/18 07:39 PT 15.7 SECONDS (9.7-12.2) H 05/13/18 08:07 INR 1.4 05/13/18 08:07 APTT 34 SECONDS (21-34) 05/13/18 08:07 - Constitutional Appears: No Acute Distress - Head Exam Head Exam: ATRAUMATIC, NORMAL INSPECTION - Eye Exam Eye Exam: EOMI, Normal appearance - ENT Exam ENT Exam: Mucous Membranes Moist - Respiratory Exam Respiratory Exam: Clear to Ausculation Bilateral, NORMAL BREATHING PATTERN. absent: Rales, Rhonchi, Wheezes - Cardiovascular Exam Cardiovascular Exam: +S1, +S2. absent: Murmur - GI/Abdominal Exam GI & Abdominal Exam: Guarding, Soft, Tenderness, Normal Bowel Sounds. absent: Firm, Rigid Additional comments: Tenderness on palpation of B/L lower abdomen. - Extremities Exam Extremities Exam: Full ROM, Normal Inspection - Back Exam Additional comments: Pt has tenderness B/L lower back. - Neurological Exam Neurological Exam: Alert, Awake, Oriented x3 - Psychiatric Exam Psychiatric exam: Normal Affect, Normal Mood - Skin Skin Exam: Dry, Normal Color, Warm Assessment and Plan - Assessment and Plan (Free Text) Assessment: 32M w/ no PMHx transferred from [facility] to ED w/ perforated appendicitis, elevated WBC & febrile: (1) Perforated appendicitis Assessment and Plan: 05/14: -Tmax (Q24) - 102.5, cont Tylenol 650 mg Q6 PRN -per ID recs, continue gentamicin 90mg Q8, meropenem 1gm Q8, flagyl 500mg Q8 -continue NPO -per IR, abscess not amendable to percutaneous drainage at this time, repeat CT later in week, place drainage once risk of bowel injury isn minimal -f/u surg recs -blood & urine cultures X 48 hrs negative -WBC trending down - 23 -> 20.5 -> 17.1 05/12: CT imaging findings-Acute appendicitis with periappendiceal 2.6 x 2.5 cm phlegmonous collection of fluid and air without identified wall/capsule. Unremarkable contrast enhanced CT of the abdomen and pelvis. In contradistinction to the preliminary report provided by [facility], there is no ileal diverticulitis ; the fluid collection described is related to appendiceal rupture. Sigmoid diverticulosis with mild nonspecific surrounding inflammatory change which may represent acute diverticulitis versus extension of inflammatory change from nearby appendiceal process. Refer to complete report Monitor bowel movements Will give patient trial period of antibiotics at this time. If there is no improvement, patient may require surgical intervention. NPO, IVF N/S at this time. On Flagyl and Meropenem for antibiotic coverage started 05/12/18. Pain control at this time Tylenol PRN for fevers INR 1.4 ESR elevated F/U surgical and ID recommendations. Surgery will repeat CT after trial of antibiotics . CXR - no signs of active disease EKG- NSR noted at approx 85 BPM Status: Acute (2) Dysuria Assessment and Plan: 05/14: -UC negative, UA negative -Continue fluid hydration NS 130 mls/hr Status: Acute (3) Electrolyte abnormality Assessment and Plan: 05/14: -low phosphorus, replenished w/ potassium phosphate 15mmole -Ca2+ 7.9, Alb 3.2, corrected Ca2+ 8.5, acceptable 05/12: Low Potassium- repleted Likely secondary to diarrhea Monitor Status: Acute (4) Prophylactic measure Assessment and Plan: SCDs, Ambulates GI prophylaxis not currently indicated at this time Status: Acute
[2018-05-14 09:36] LABS: BANDS 4 % (0-2); BASOPHIL 1 % (0-2); LYMPHOCYTE 8 % (20-40); MONOCYTE 3 % (0-10); NEUTROPHIL 84 % (50-75); PLATELET ESTIMATE NORMAL (NORMAL); TOTAL CELLS COUNTED 100
[2018-05-14 09:37] LABS: OVALOCYTES SLIGHT
[2018-05-14] MEDS ORDERED: Iodixanol 320 MG/ML 100 ML BOTTLE IV ONE (11:43)
--- NOTE | 2018-05-14 12:09 | CP.PCM.PN ---
<KennyLorenzo - Last Filed: 05/14/18 17:26> Subjective - Date & Time of Evaluation Date of Evaluation: 05/14/18 Time of Evaluation: 07:00 - Subjective Subjective: General Surgery Progress Note for Dr. Shelton 32M seen and evaluated this AM. Pt states he is feeling better and that his pain is under good control. No acute events overnight. Denies any n/v/d, f/c, or urinary symptoms. Objective - Vital Signs/Intake and Output Vital Signs (last 24 hours): Temp Pulse Resp BP Pulse Ox 99.6 F 77 18 114/66 97 05/14/18 07:00 05/14/18 07:00 05/14/18 07:00 05/14/18 07:00 05/14/18 07:00 Intake and Output: 05/14/18 05/14/18 06:59 18:59 Intake Total 920 Balance 920 - Medications Medications: Current Medications Acetaminophen (Tylenol 325mg Tab) 650 mg PO Q6H PRN PRN Reason: Fever >100.4 F Last Admin: 05/13/18 16:45 Dose: 650 mg Metronidazole (Flagyl) 500 mg in 100 mls @ 100 mls/hr IVPB Q8H [facility] PRN Reason: Protocol Last Admin: 05/14/18 04:17 Dose: 100 mls/hr Sodium Chloride (Sodium Chloride 0.9%) 1,000 mls @ 130 mls/hr IV .Q7H42M [facility] Last Admin: 05/14/18 04:16 Dose: 130 mls/hr Meropenem 1 gm/ Sodium (Chloride) 100 mls @ 100 mls/hr IVPB Q8 [facility] PRN Reason: Protocol Last Admin: 05/14/18 05:14 Dose: 100 mls/hr Gentamicin Sulfate 80 mg/ (Sodium Chloride) 102 mls @ 100 mls/hr IVPB Q8H [facility] PRN Reason: Protocol Last Admin: 05/14/18 06:21 Dose: 100 mls/hr Morphine Sulfate (Morphine) 2 mg IVP Q4 PRN PRN Reason: Pain, moderate (4-7) Last Admin: 05/14/18 10:48 Dose: 2 mg - Labs Labs: 05/14/18 07:39 05/14/18 07:39 PT 15.7 SECONDS (9.7-12.2) H 05/13/18 08:07 INR 1.4 05/13/18 08:07 APTT 34 SECONDS (21-34) 05/13/18 08:07 - Constitutional Appears: Well, Non-toxic, No Acute Distress - Head Exam Head Exam: ATRAUMATIC, NORMAL INSPECTION, NORMOCEPHALIC - Eye Exam Eye Exam: EOMI, Normal appearance - Respiratory Exam Respiratory Exam: Clear to Ausculation Bilateral, NORMAL BREATHING PATTERN - Cardiovascular Exam Cardiovascular Exam: REGULAR RHYTHM, +S1, +S2. absent: Murmur - GI/Abdominal Exam GI & Abdominal Exam: Soft, Normal Bowel Sounds. absent: Distended, Firm, Guarding, Rigid, Tenderness, Rebound - Neurological Exam Neurological Exam: Alert, Awake, Oriented x3 - Psychiatric Exam Psychiatric exam: Normal Affect, Normal Mood - Skin Skin Exam: Dry, Intact, Normal Color, Warm Assessment and Plan - Assessment and Plan (Free Text) Assessment: 32M w/ perforated appendix w/ abscess Plan: c/w IVF c/w NPO c/w Abx - ID consulted c/w AM labs - WBC downtrending from 20.5 to 17.1 strict I&Os encourage ambulation and SCDs if distended or n/v will put in NGT serial abdominal exams CT abd/pel shows growing abscess - reconsult IR for drainage further recs per Dr. Nikita Cox PGY1 <Doni Shelton - Last Filed: 05/14/18 18:50> Objective - Vital Signs/Intake and Output Vital Signs (last 24 hours): Temp Pulse Resp BP Pulse Ox 99.2 F 88 20 115/66 99 05/14/18 15:52 05/14/18 15:52 05/14/18 15:52 05/14/18 15:52 05/14/18 15:52 Intake and Output: 05/14/18 05/14/18 06:59 18:59 Intake Total 920 800 Output Total 225 Balance 920 575 - Medications Medications: Current Medications Acetaminophen (Tylenol 325mg Tab) 650 mg PO Q6H PRN PRN Reason: Fever >100.4 F Last Admin: 05/13/18 16:45 Dose: 650 mg Metronidazole (Flagyl) 500 mg in 100 mls @ 100 mls/hr IVPB Q8H [facility] PRN Reason: Protocol Last Admin: 05/14/18 13:12 Dose: 100 mls/hr Sodium Chloride (Sodium Chloride 0.9%) 1,000 mls @ 130 mls/hr IV .Q7H42M [facility] Last Admin: 05/14/18 17:48 Dose: 130 mls/hr Meropenem 1 gm/ Sodium (Chloride) 100 mls @ 100 mls/hr IVPB Q8 [facility] PRN Reason: Protocol Last Admin: 05/14/18 14:25 Dose: 100 mls/hr Potassium Phosphate 15 mmole/ (Sodium Chloride) 255 mls @ 63 mls/hr IV ONCE ONE Stop: 05/14/18 22:32 Last Admin: 05/14/18 17:47 Dose: 63 mls/hr Gentamicin Sulfate 90 mg/ (Sodium Chloride) 102.25 mls @ 100 mls/hr IVPB Q8H [facility] PRN Reason: Protocol Last Admin: 05/14/18 17:46 Dose: 100 mls/hr Morphine Sulfate (Morphine) 2 mg IVP Q4 PRN PRN Reason: Pain, moderate (4-7) Last Admin: 05/14/18 18:28 Dose: 2 mg - Labs Labs: 05/14/18 07:39 05/14/18 07:39 PT 15.7 SECONDS (9.7-12.2) H 05/13/18 08:07 INR 1.4 05/13/18 08:07 APTT 34 SECONDS (21-34) 05/13/18 08:07 Assessment and Plan - Assessment and Plan (Free Text) Plan: I personally saw and examined the patient with the resident staff and agree with the above assessment and plan. I personally reviewed the repeat CTAP done today images and imaging reports. Enlarged air and fluid cavity, more defined borders of collection. Subjectively patient continues to improve. Still focal tenderness on exam without generalized peritonitis. WBC coming down. IR for drainage/drain placement per standard treatment of perforated appendicitis with localized abscess. Continue current treatment as above. Appreciate ID kelli - Adry added. Dispo plan: Once drain in place, can start PO diet, transition to PO antibiotics , and plan for discharge home once tolerating diet, afebrile and WBC normalized on PO abx. Patient will likely need to go home with drain and will follow up as outpatient in clinic for removal. Plan of care discussed with patient and his at bedside.
--- NOTE | 2018-05-14 13:27 | CT ---
PROCEDURE: CT Abdomen and Pelvis with contrast HISTORY: perf appendicitis. Interval exam. eval for changes COMPARISON: CT scan of the abdomen pelvis dated 05/12/[address] [facility]. TECHNIQUE: Contrast dose: 100 mL Visipaque 320 Radiation dose: Total exam DLP = 1279.2 mGy-cm. This CT exam was performed using one or more of the following dose reduction techniques: Automated exposure control, adjustment of the mA and/or kV according to patient size, and/or use of iterative reconstruction technique. FINDINGS: LOWER THORAX: Unremarkable. LIVER: Unremarkable. No gross lesion or ductal dilatation. GALLBLADDER AND BILE DUCTS: Unremarkable. PANCREAS: Unremarkable. No gross lesion or ductal dilatation. SPLEEN: Unremarkable. ADRENALS: Unremarkable. No mass. KIDNEYS AND URETERS: Mild reactive short-segment enhancement of the mid right ureter. No hydronephrosis. No solid mass. VASCULATURE: Unremarkable. No aortic aneurysm. BOWEL: Reactive thickening of the duodenum and ileum. No obstruction. No gross mural thickening. APPENDIX: Dilated thick-walled appendix with obstructing appendicolith and periappendiceal stranding redemonstrated. Interval enlargement of adjacent fluid and air-filled collection which now measures 4.7 x 4.6 cm. PERITONEUM: Unremarkable. No free fluid. No free air. LYMPH NODES: Unremarkable. No enlarged lymph nodes. BLADDER: Unremarkable. REPRODUCTIVE: Unremarkable. BONES: No acute fracture. OTHER FINDINGS: None. IMPRESSION: Redemonstration of perforated acute appendicitis with interval enlargement of adjacent fluid and air-filled collection which now measures 4.7 x 4.6 cm. Reactive in of the duodenum and ileum as well as reactive short-segment enhancement of the right ureter secondary to the appendiceal process. No other significant interval changes.
--- NOTE | 2018-05-14 14:08 | CP.PCM.PN ---
Subjective - Date & Time of Evaluation Date of Evaluation: 05/14/18 Time of Evaluation: 01:30 - Subjective Subjective: dictated Objective - Vital Signs/Intake and Output Vital Signs (last 24 hours): Temp Pulse Resp BP Pulse Ox 99.6 F 77 18 114/66 97 05/14/18 07:00 05/14/18 07:00 05/14/18 07:00 05/14/18 07:00 05/14/18 07:00 Intake and Output: 05/14/18 05/14/18 06:59 18:59 Intake Total 920 800 Output Total 225 Balance 920 575 - Medications Medications: Current Medications Acetaminophen (Tylenol 325mg Tab) 650 mg PO Q6H PRN PRN Reason: Fever >100.4 F Last Admin: 05/13/18 16:45 Dose: 650 mg Metronidazole (Flagyl) 500 mg in 100 mls @ 100 mls/hr IVPB Q8H [facility] PRN Reason: Protocol Last Admin: 05/14/18 13:12 Dose: 100 mls/hr Sodium Chloride (Sodium Chloride 0.9%) 1,000 mls @ 130 mls/hr IV .Q7H42M [facility] Last Admin: 05/14/18 04:16 Dose: 130 mls/hr Meropenem 1 gm/ Sodium (Chloride) 100 mls @ 100 mls/hr IVPB Q8 [facility] PRN Reason: Protocol Last Admin: 05/14/18 05:14 Dose: 100 mls/hr Gentamicin Sulfate 80 mg/ (Sodium Chloride) 102 mls @ 100 mls/hr IVPB Q8H [facility] PRN Reason: Protocol Last Admin: 05/14/18 06:21 Dose: 100 mls/hr Morphine Sulfate (Morphine) 2 mg IVP Q4 PRN PRN Reason: Pain, moderate (4-7) Last Admin: 05/14/18 10:48 Dose: 2 mg - Labs Labs: 05/14/18 07:39 05/14/18 07:39 PT 15.7 SECONDS (9.7-12.2) H 05/13/18 08:07 INR 1.4 05/13/18 08:07 APTT 34 SECONDS (21-34) 05/13/18 08:07
--- NOTE | 2018-05-14 14:09 | PCM.IRP ---
Chief Complaint: CT abdomen reviewed. Perforated appendiceal abscess is increasing. The abscess is not amenable to percutaneous drainage. Recommend repeating CT later in the week. Plan drainage once risk of bowel injury or vascular injury is minimal. Objective - Vital Signs/Intake and Output Vital Signs (last 24 hours): Vital Signs - 24 hr 05/13/18 05/13/18 05/14/18 15:00 23:00 05:20 Temperature 102 F H 99.8 F H 99.7 F H Pulse Rate 93 H 96 H Respiratory 20 20 Rate Blood Pressure 107/61 118/71 O2 Sat by Pulse 97 97 Oximetry 05/14/18 07:00 Temperature 99.6 F Pulse Rate 77 Respiratory 18 Rate Blood Pressure 114/66 O2 Sat by Pulse 97 Oximetry Intake and Output (last 12 hours): Intake & Output 05/13/18 05/14/18 05/14/18 18:59 06:59 18:59 Intake Total 1040 920 800 Output Total 225 Balance 1040 920 575 Intake: Intake, IV Amount 1040 920 Right Forearm 1040 920 Oral 0 800 Output: Urine 225 Urine, Voided 225 Other: # Voids Urine, Voided 2 # Bowel Movements 3 - Medications Medications: Current Medications Acetaminophen (Tylenol 325mg Tab) 650 mg PO Q6H PRN PRN Reason: Fever >100.4 F Last Admin: 05/13/18 16:45 Dose: 650 mg Metronidazole (Flagyl) 500 mg in 100 mls @ 100 mls/hr IVPB Q8H [facility] PRN Reason: Protocol Last Admin: 05/14/18 13:12 Dose: 100 mls/hr Sodium Chloride (Sodium Chloride 0.9%) 1,000 mls @ 130 mls/hr IV .Q7H42M [facility] Last Admin: 05/14/18 04:16 Dose: 130 mls/hr Meropenem 1 gm/ Sodium (Chloride) 100 mls @ 100 mls/hr IVPB Q8 [facility] PRN Reason: Protocol Last Admin: 05/14/18 05:14 Dose: 100 mls/hr Gentamicin Sulfate 80 mg/ (Sodium Chloride) 102 mls @ 100 mls/hr IVPB Q8H [facility] PRN Reason: Protocol Last Admin: 05/14/18 06:21 Dose: 100 mls/hr Morphine Sulfate (Morphine) 2 mg IVP Q4 PRN PRN Reason: Pain, moderate (4-7) Last Admin: 05/14/18 10:48 Dose: 2 mg - Labs Labs (last 24 hours): Laboratory Results - last 24 hr 05/13/18 05/13/18 05/14/18 07:18 16:34 07:39 WBC 17.1 H RBC 4.22 L Hgb 11.6 L Hct 34.9 L MCV 82.7 MCH 27.4 MCHC 33.2 RDW 13.7 Plt Count 254 MPV 7.8 Neut % (Auto) 83.1 H Lymph % (Auto) 8.7 L [place] % (Auto) 7.9 Eos % (Auto) 0.1 Baso % (Auto) 0.2 Neut # (Auto) 14.2 H Lymph # (Auto) 1.5 [place] # (Auto) 1.3 H Eos # (Auto) 0.0 Baso # (Auto) 0.0 Neutrophils % (Manual) 84 H Band Neutrophils % 4 H Lymphocytes % (Manual) 8 L Monocytes % (Manual) 3 Basophils % (Manual) 1 Platelet Estimate Normal Ovalocytes Slight Sodium Potassium Chloride Carbon Dioxide Anion Gap BUN Creatinine Est GFR ( Amer) Est GFR (Non-Af Amer) Random Glucose Calcium Phosphorus Magnesium Total Bilirubin AST ALT Alkaline Phosphatase Total Protein Albumin Globulin Albumin/Globulin Ratio Gentamicin Peak 1.3 L Gentamicin Trough < 0.6 05/14/18 07:39 WBC RBC Hgb Hct MCV MCH MCHC RDW Plt Count MPV Neut % (Auto) Lymph % (Auto) [place] % (Auto) Eos % (Auto) Baso % (Auto) Neut # (Auto) Lymph # (Auto) [place] # (Auto) Eos # (Auto) Baso # (Auto) Neutrophils % (Manual) Band Neutrophils % Lymphocytes % (Manual) Monocytes % (Manual) Basophils % (Manual) Platelet Estimate Ovalocytes Sodium 138 Potassium 3.9 Chloride 107 Carbon Dioxide 18 L Anion Gap 17 BUN 8 L Creatinine 0.7 L Est GFR ( Amer) > 60 Est GFR (Non-Af Amer) > 60 Random Glucose 97 Calcium 7.9 L Phosphorus 2.0 L Magnesium 1.9 Total Bilirubin 0.6 AST 19 ALT 28 Alkaline Phosphatase 78 Total Protein 6.0 L Albumin 3.2 L Globulin 2.8 Albumin/Globulin Ratio 1.2 Gentamicin Peak Gentamicin Trough
[2018-05-14] MEDS ORDERED: Potassium Phosphate 15 MMOLE in Sodium Chloride 0.9% 250 ML IV ONE (18:30)
--- NOTE | 2018-05-14 21:27 | CARD ---
APPROVED REPORT EKG Measurement Heart [id number] <Conclusion> Normal sinus rhythm Normal ECG
[2018-05-15] MEDS: metroNIDAZOLE IV 500 mg/100 ml 500 MG/100 ML BAG IVPB SCH ×3 (04:27→21:06)
[2018-05-15] MEDS: Sodium Chloride 0.9% 1,000 ML IV SCH ×4 (05:16→21:07)
[2018-05-15] MEDS: Meropenem 1 GM in Sodium Chloride 0.9% 100 ML IVPB SCH ×3 (06:04→22:08)
--- NOTE | 2018-05-15 06:14 | CP.PCM.PN ---
Subjective - Date & Time of Evaluation Date of Evaluation: 05/15/18 Time of Evaluation: 07:15 - Subjective Subjective: PGY1 Resident note for Dr. Juan Carlos Romero. Pt seen and examined at bedside. Pt lying in bed in no acute distress. Pt acute overnight events. Pt states he still is having 1-3 watery bowel movements a day. Pt denies abdominal & back pain he had 1 day prior. Last does of morphine was ~2000 hours, > 6 hours of physical exam. Pt denies chest pain, difficulty breathing, abdominal pain, back pain, constipation. Objective - Vital Signs/Intake and Output Vital Signs (last 24 hours): Temp Pulse Resp BP Pulse Ox 98.9 F 76 20 110/65 97 05/14/18 23:00 05/14/18 23:00 05/14/18 23:00 05/14/18 23:00 05/14/18 23:00 Intake and Output: 05/14/18 05/15/18 18:59 06:59 Intake Total 800 Output Total 225 Balance 575 - Medications Medications: Current Medications Acetaminophen (Tylenol 325mg Tab) 650 mg PO Q6H PRN PRN Reason: Fever >100.4 F Last Admin: 05/13/18 16:45 Dose: 650 mg Metronidazole (Flagyl) 500 mg in 100 mls @ 100 mls/hr IVPB Q8H [facility] PRN Reason: Protocol Last Admin: 05/15/18 04:27 Dose: 100 mls/hr Sodium Chloride (Sodium Chloride 0.9%) 1,000 mls @ 130 mls/hr IV .Q7H42M [facility] Last Admin: 05/15/18 06:05 Dose: 130 mls/hr Meropenem 1 gm/ Sodium (Chloride) 100 mls @ 100 mls/hr IVPB Q8 [facility] PRN Reason: Protocol Last Admin: 05/15/18 06:04 Dose: 100 mls/hr Gentamicin Sulfate 90 mg/ (Sodium Chloride) 102.25 mls @ 100 mls/hr IVPB Q8H [facility] PRN Reason: Protocol Last Admin: 05/15/18 02:09 Dose: 100 mls/hr Morphine Sulfate (Morphine) 2 mg IVP Q4 PRN PRN Reason: Pain, moderate (4-7) Last Admin: 05/14/18 22:21 Dose: 2 mg - Labs Labs: 05/14/18 07:39 05/14/18 07:39 PT 15.7 SECONDS (9.7-12.2) H 05/13/18 08:07 INR 1.4 05/13/18 08:07 APTT 34 SECONDS (21-34) 05/13/18 08:07 - Constitutional Appears: Non-toxic, No Acute Distress - Head Exam Head Exam: NORMAL INSPECTION - Eye Exam Eye Exam: Normal appearance, PERRL - ENT Exam ENT Exam: Mucous Membranes Moist, Normal External Ear Exam. absent: Mucous Membranes Dry - Respiratory Exam Respiratory Exam: Clear to Ausculation Bilateral, NORMAL BREATHING PATTERN. absent: Rales, Rhonchi, Wheezes - Cardiovascular Exam Cardiovascular Exam: +S1, +S2. absent: Irregular Rhythm, Murmur - GI/Abdominal Exam GI & Abdominal Exam: Soft, Normal Bowel Sounds. absent: Firm, Guarding, Rigid - Extremities Exam Additional comments: No calf tenderness. Pt has full ROM in all 4 extremities. - Back Exam Back Exam: NORMAL INSPECTION. absent: CVA tenderness (L), CVA tenderness (R) - Neurological Exam Neurological Exam: Alert, Awake, Oriented x3 - Psychiatric Exam Psychiatric exam: Normal Affect, Normal Mood - Skin Skin Exam: Dry, Normal Color, Warm. absent: Cyanosis, Pallor Assessment and Plan - Assessment and Plan (Free Text) Assessment: 32M w/ no PMHx transferred from [facility] to ED w/ perforated appendicitis, initially elevated WBC & febrile: (1) Perforated appendicitis Assessment and Plan: 05/15: -Pt afebrile X 24 hours, Tylenol 650 mg Q6 PRN incase of fever spike -per ID recs, continue gentamicin 90mg Q8, meropenem 1gm Q8, flagyl 500mg Q8 -per IR, abscess not amendable to percutaneous drainage at this time, repeat CT later in week, place drainage once risk of bowel injury is minimal -blood & urine cultures X 72 hrs negative -started PPN diet -WBC trending down - 23 -> 20.5 -> 17.1 - > 16.5 -Pt discussed with surgery resident, pt has no PMHX and is requiring no management from medicine team. PGY3 resident agreed, discussed w/ attending and agreed to transfer pt their service, Dr. Doni Shelton. 05/14: -Tmax (Q24) - 102.5, cont Tylenol 650 mg Q6 PRN -per ID recs, continue gentamicin 90mg Q8, meropenem 1gm Q8, flagyl 500mg Q8 -continue NPO -per IR, abscess not amendable to percutaneous drainage at this time, repeat CT later in week, place drainage once risk of bowel injury isn minimal -f/u surg recs -blood & urine cultures X 48 hrs negative -WBC trending down - 23 -> 20.5 -> 17.1 05/12: CT imaging findings-Acute appendicitis with periappendiceal 2.6 x 2.5 cm phlegmonous collection of fluid and air without identified wall/capsule. Unremarkable contrast enhanced CT of the abdomen and pelvis. In contradistinction to the preliminary report provided by [facility], there is no ileal diverticulitis ; the fluid collection described is related to appendiceal rupture. Sigmoid diverticulosis with mild nonspecific surrounding inflammatory change which may represent acute diverticulitis versus extension of inflammatory change from nearby appendiceal process. Refer to complete report Monitor bowel movements Will give patient trial period of antibiotics at this time. If there is no improvement, patient may require surgical intervention. NPO, IVF N/S at this time. On Flagyl and Meropenem for antibiotic coverage started 05/12/18. Pain control at this time Tylenol PRN for fevers INR 1.4 ESR elevated F/U surgical and ID recommendations. Surgery will repeat CT after trial of antibiotics . CXR - no signs of active disease EKG- NSR noted at approx 85 BPM Status: Acute (2) Dysuria Assessment and Plan: 05/14: -UC negative, UA negative -Continue fluid hydration NS 130 mls/hr Status: Acute (3) Electrolyte abnormality Assessment and Plan: 05/15: - phosphorus wnl, 2.5, Ca2+ corrected 8.5, acceptable 05/14: -low phosphorus, replenished w/ potassium phosphate 15mmole -Ca2+ 7.9, Alb 3.2, corrected Ca2+ 8.5, acceptable 05/12: Low Potassium- repleted Likely secondary to diarrhea Monitor Status: Acute (4) Prophylactic measure Assessment and Plan: SCDs, Ambulates GI prophylaxis not currently indicated at this time Status: Acute
--- NOTE | 2018-05-15 07:37 | PN ---
DATE: 05/14/2018 INFECTIOUS DISEASE FOLLOWUP SUBJECTIVE: The patient was seen today. He denied any pain but he was waiting to go downstairs when I am dictating this report. On my note, he has already been seen by the IR, and IR progress note said that the abscess is not amenable to percutaneous drainage. Recommend repeat CT later in the week for planning drainage once the risks of bowel injuries or vascular injuries are minimal. So at this time it was amenable for aspiration. I will continue antibiotics when he needs to be continued with the surgical followup. The patient, however, is feeling a little better. He is, however, on three antibiotics at this time. PHYSICAL EXAMINATION: VITAL SIGNS: T-max is 99.2, pulse 88, blood pressure is 115/66, respirations are 20. HEENT: Head is atraumatic. Tongue is moist. NECK: Supple. LUNGS: Clear. HEART: S1 and S2 regular. ABDOMEN: Soft, nontender. No guarding, no rigidity present. She has mild suprapubic tenderness. EXTREMITIES: Have no edema. White count is 17.1, hemoglobin 11.6, hematocrit 34.9, platelet count is 254, and cultures are negative at this time. So, we will continue the antibiotics. Wallace Hamlin MD
[2018-05-15 07:43] LABS: BASO # 0.1 K/uL (0.0-0.2); BASO % 0.4 % (0.0-2.0); EOS % 0.3 % (0.0-4.0); HEMOGLOBIN 12.3 g/dL (12.0-18.0); LYMPH # 1.5 K/uL (1.0-4.3); LYMPH % 8.9 % (20.0-40.0); MEAN CELL VOLUME 81.3 fL (80.0-94.0); MEAN CORPUSCULAR HEMOGLOBIN 27.9 pg (27.0-31.0); MEAN CORPUSCULAR HGB CONC 34.4 g/dL (33.0-37.0); MEAN PLATELET VOLUME 7.4 fL (7.2-11.7); MONO # 1.4 K/uL (0.0-0.8); MONO % 8.6 % (0.0-10.0); NEUT # 13.5 K/uL (1.8-7.0); NEUT % 81.8 % (50.0-75.0); PLATELET COUNT 299 K/uL (130-400); RED CELL DISTRIBUTION WIDTH 13.4 % (11.5-14.5); WHITE BLOOD COUNT 16.5 K/uL (4.8-10.8)
[2018-05-15 08:07] LABS: ALB/GLOB RATIO 1.2 (1.0-2.1); ALBUMIN 3.4 g/dL (3.5-5.0); ALT/SGPT 27 U/L (21-72); AST/SGOT 30 U/L (17-59); BLOOD UREA NITROGEN 8 mg/dL (9-20); GFR AFRICAN-AMERICAN > 60; GFR NON-AFRICAN AMERICAN > 60
[2018-05-15 09:00] LABS: BANDS 3 % (0-2); EOSINOPHIL 1 % (0-4); GIANT PLATELETS PRESENT; LARGE PLATELETS PRESENT; LYMPHOCYTE 10 % (20-40); MONOCYTE 9 % (0-10); NEUTROPHIL 77 % (50-75); PLATELET ESTIMATE NORMAL (NORMAL); TOTAL CELLS COUNTED 100
[2018-05-15] MEDS ORDERED: Enoxaparin 40 mg Syringe SC SCH (10:00)
--- NOTE | 2018-05-15 22:00 | CP.PCM.PN ---
Subjective - Date & Time of Evaluation Date of Evaluation: 05/15/18 Time of Evaluation: 03:00 - Subjective Subjective: dictated Objective - Vital Signs/Intake and Output Vital Signs (last 24 hours): Temp Pulse Resp BP Pulse Ox 98.6 F 68 20 111/70 98 05/15/18 16:00 05/15/18 16:00 05/15/18 16:00 05/15/18 16:00 05/15/18 16:00 Intake and Output: 05/15/18 05/16/18 18:59 06:59 Intake Total 1040 Output Total 3 Balance 1037 - Medications Medications: Current Medications Acetaminophen (Tylenol 325mg Tab) 650 mg PO Q6H PRN PRN Reason: Fever >100.4 F Last Admin: 05/13/18 16:45 Dose: 650 mg Heparin Sodium (Porcine) (Heparin) 5,000 units SC Q8 [facility] Last Admin: 05/15/18 21:06 Dose: 5,000 units Metronidazole (Flagyl) 500 mg in 100 mls @ 100 mls/hr IVPB Q8H [facility] PRN Reason: Protocol Last Admin: 05/15/18 21:06 Dose: 100 mls/hr Sodium Chloride (Sodium Chloride 0.9%) 1,000 mls @ 130 mls/hr IV .Q7H42M [facility] Last Admin: 05/15/18 21:07 Dose: 130 mls/hr Meropenem 1 gm/ Sodium (Chloride) 100 mls @ 100 mls/hr IVPB Q8 [facility] PRN Reason: Protocol Last Admin: 05/15/18 13:39 Dose: 100 mls/hr Gentamicin Sulfate 90 mg/ (Sodium Chloride) 102.25 mls @ 100 mls/hr IVPB Q8H [facility] PRN Reason: Protocol Last Admin: 05/15/18 17:33 Dose: 100 mls/hr Morphine Sulfate (Morphine) 2 mg IVP Q4 PRN PRN Reason: Pain, moderate (4-7) Last Admin: 05/15/18 19:47 Dose: 2 mg - Labs Labs: 05/15/18 07:22 05/15/18 07:22 PT 15.7 SECONDS (9.7-12.2) H 05/13/18 08:07 INR 1.4 05/13/18 08:07 APTT 34 SECONDS (21-34) 05/13/18 08:07
--- NOTE | 2018-05-16 01:09 | PN ---
DATE: 05/15/2018 SUBJECTIVE: The patient was seen today. He said he was not having any abdominal pain today. He was feeling little better. However, IR refused to do any aspiration as they said that it was deep enough and would be problematic, and the patient remains antibiotics. OBJECTIVE: VITAL SIGNS: T-max is 98.6, pulse 68, blood pressure 111/70, respirations are 20. HEENT: Head is atraumatic, normocephalic. NECK: Supple. LUNGS: Clear. No crackles or rales present. HEART: S1, S2 regular. ABDOMEN: Soft, nontender. No guarding, no rigidity present. . He is just on meropenem and Flagyl also, so at this time, I will take away and would discontinue gentamicin as he is clinically improving, and meropenem and Flagyl should be enough to do treat him at this point as he is afebrile. IMPRESSION: He has a perforated appendix and probably forming an abscess but it is not localized by IR, and the patient is being followed by Surgery as well as by IR, and we will continue antibiotics at this time. Wallace Hamlin MD
[2018-05-16] MEDS: Sodium Chloride 0.9% 1,000 ML IV SCH ×3 (01:14→08:11)
[2018-05-16] MEDS: metroNIDAZOLE IV 500 mg/100 ml 500 MG/100 ML BAG IVPB SCH ×2 (04:03→13:10)
[2018-05-16] MEDS: Meropenem 1 GM in Sodium Chloride 0.9% 100 ML IVPB SCH ×4 (05:21→22:14)
[2018-05-16 07:38] LABS: BASO % 0.1 % (0.0-2.0); EOS # 0.2 K/uL (0.0-0.7); EOS % 1.2 % (0.0-4.0); HEMOGLOBIN 12.1 g/dL (12.0-18.0); LYMPH # 1.2 K/uL (1.0-4.3); LYMPH % 6.4 % (20.0-40.0); MEAN CELL VOLUME 80.6 fL (80.0-94.0); MEAN CORPUSCULAR HEMOGLOBIN 27.9 pg (27.0-31.0); MEAN CORPUSCULAR HGB CONC 34.6 g/dL (33.0-37.0); MEAN PLATELET VOLUME 7.1 fL (7.2-11.7); MONO # 1.5 K/uL (0.0-0.8); MONO % 8.2 % (0.0-10.0); NEUT # 15.7 K/uL (1.8-7.0); NEUT % 84.1 % (50.0-75.0); NRBC % 0.1 % (0.0-2.0); PLATELET COUNT 310 K/uL (130-400); RBC 4.35 Mil/uL (4.40-5.90); RED CELL DISTRIBUTION WIDTH 13.9 % (11.5-14.5); WHITE BLOOD COUNT 18.7 K/uL (4.8-10.8)
[2018-05-16 07:46] LABS: INR 1.3; PROTHROMBIN TIME 14.6 SECONDS (9.7-12.2)
[2018-05-16 07:51] LABS: ALBUMIN 3.1 g/dL (3.5-5.0); ALT/SGPT 29 U/L (21-72); AST/SGOT 13 U/L (17-59); BLOOD UREA NITROGEN 8 mg/dL (9-20); GFR AFRICAN-AMERICAN > 60; GFR NON-AFRICAN AMERICAN > 60
[2018-05-16 08:40] LABS: BASOPHIL 1 % (0-2); LYMPHOCYTE 5 % (20-40); MONOCYTE 9 % (0-10); NEUTROPHIL 85 % (50-75); PLATELET ESTIMATE NORMAL (NORMAL); TOTAL CELLS COUNTED 100
--- NOTE | 2018-05-16 09:41 | PCM.IRP ---
Chief Complaint: Pt with RLQ abscess. Plan CT guided drainage tomorrow. Drainage delayed until later in the week because there is not safe percutaneous approach for drainage. Objective - Vital Signs/Intake and Output Vital Signs (last 24 hours): Vital Signs - 24 hr 05/15/18 05/15/18 05/15/18 13:54 16:00 23:00 Temperature 98.6 F 98.5 F Pulse Rate 72 68 82 Respiratory 20 20 Rate Blood Pressure 115/71 111/70 127/64 O2 Sat by Pulse 98 96 Oximetry 05/15/18 05/16/18 23:15 07:00 Temperature 98.5 F 98.0 F Pulse Rate 82 67 Respiratory 20 20 Rate Blood Pressure 127/64 109/65 O2 Sat by Pulse 96 97 Oximetry Intake and Output (last 12 hours): Intake & Output 05/15/18 05/16/18 05/16/18 18:59 06:59 18:59 Intake Total 1040 980 Output Total 3 Balance 1037 980 Intake: Intake, IV Amount 1040 980 Right Forearm 1040 980 Output: Urine 3 Urine, Voided 3 Other: # Voids Urine, Voided 1 # Bowel Movements 1 - Medications Medications: Current Medications Acetaminophen (Tylenol 325mg Tab) 650 mg PO Q6H PRN PRN Reason: Fever >100.4 F Last Admin: 05/13/18 16:45 Dose: 650 mg Metronidazole (Flagyl) 500 mg in 100 mls @ 100 mls/hr IVPB Q8H [facility] PRN Reason: Protocol Last Admin: 05/16/18 04:03 Dose: 100 mls/hr Sodium Chloride (Sodium Chloride 0.9%) 1,000 mls @ 130 mls/hr IV .Q7H42M [facility] Last Admin: 05/16/18 04:02 Dose: 130 mls/hr Meropenem 1 gm/ Sodium (Chloride) 100 mls @ 100 mls/hr IVPB Q8 [facility] PRN Reason: Protocol Last Admin: 05/16/18 05:53 Dose: 100 mls/hr Morphine Sulfate (Morphine) 2 mg IVP Q4 PRN PRN Reason: Pain, moderate (4-7) Last Admin: 05/16/18 04:11 Dose: 2 mg - Labs Labs (last 24 hours): Laboratory Results - last 24 hr 05/15/18 05/15/18 05/16/18 16:26 19:44 07:27 WBC 18.7 H RBC 4.35 L Hgb 12.1 Hct 35.0 MCV 80.6 MCH 27.9 MCHC 34.6 RDW 13.9 Plt Count 310 MPV 7.1 L Neut % (Auto) 84.1 H Lymph % (Auto) 6.4 L Cannon % (Auto) 8.2 Eos % (Auto) 1.2 Baso % (Auto) 0.1 Neut # (Auto) 15.7 H Lymph # (Auto) 1.2 Cannon # (Auto) 1.5 H Eos # (Auto) 0.2 Baso # (Auto) 0.0 Neutrophils % (Manual) 85 H Lymphocytes % (Manual) 5 L Monocytes % (Manual) 9 Basophils % (Manual) 1 Platelet Estimate Normal PT INR APTT Sodium Potassium Chloride Carbon Dioxide Anion Gap BUN Creatinine Est GFR ( Amer) Est GFR (Non-Af Amer) Random Glucose Calcium Phosphorus Magnesium Total Bilirubin AST ALT Alkaline Phosphatase Total Protein Albumin Globulin Albumin/Globulin Ratio Gentamicin Peak 3.8 L Gentamicin Trough < 0.6 05/16/18 05/16/18 07:27 07:27 WBC RBC Hgb Hct MCV MCH MCHC RDW Plt Count MPV Neut % (Auto) Lymph % (Auto) Cannon % (Auto) Eos % (Auto) Baso % (Auto) Neut # (Auto) Lymph # (Auto) Cannon # (Auto) Eos # (Auto) Baso # (Auto) Neutrophils % (Manual) Lymphocytes % (Manual) Monocytes % (Manual) Basophils % (Manual) Platelet Estimate PT 14.6 H INR 1.3 APTT 31 Sodium 135 Potassium 3.6 Chloride 103 Carbon Dioxide 17 L Anion Gap 18 BUN 8 L Creatinine 0.6 L Est GFR ( Amer) > 60 Est GFR (Non-Af Amer) > 60 Random Glucose 91 Calcium 8.0 L Phosphorus 2.9 Magnesium 1.8 Total Bilirubin 0.5 AST 13 L D ALT 29 Alkaline Phosphatase 65 Total Protein 6.1 L Albumin 3.1 L Globulin 3.0 Albumin/Globulin Ratio 1.0 Gentamicin Peak Gentamicin Trough
[2018-05-16] MEDS ORDERED: DiphenhydrAMINE 50 mg/ml Inj IVP STA (13:21)
[2018-05-16] MEDS ORDERED: Magnesium Sulfate 1 gm in D5W 1 GM/100 ML BAG IVPB ONE (13:30)
--- NOTE | 2018-05-16 13:31 | CP.PCM.PN ---
Subjective - Date & Time of Evaluation Date of Evaluation: 05/16/18 Time of Evaluation: 13:30 - Subjective Subjective: Surgery: Dr. Shelton Pt seen and examined. Resting comfortably in bed. Pain is controlled. No N/V. Occasional diarrhea. No F/C. Pt did break out in hives after receiving heparin. Objective - Vital Signs/Intake and Output Vital Signs (last 24 hours): Temp Pulse Resp BP Pulse Ox 98.0 F 67 20 109/65 97 05/16/18 07:00 05/16/18 07:00 05/16/18 07:00 05/16/18 07:00 05/16/18 07:00 Intake and Output: 05/16/18 05/16/18 06:59 18:59 Intake Total 980 Balance 980 - Medications Medications: Current Medications Acetaminophen (Tylenol 325mg Tab) 650 mg PO Q6H PRN PRN Reason: Fever >100.4 F Last Admin: 05/13/18 16:45 Dose: 650 mg Metronidazole (Flagyl) 500 mg in 100 mls @ 100 mls/hr IVPB Q8H [facility] PRN Reason: Protocol Last Admin: 05/16/18 13:10 Dose: 100 mls/hr Sodium Chloride (Sodium Chloride 0.9%) 1,000 mls @ 130 mls/hr IV .Q7H42M [facility] Last Admin: 05/16/18 04:02 Dose: 130 mls/hr Meropenem 1 gm/ Sodium (Chloride) 100 mls @ 100 mls/hr IVPB Q8 [facility] PRN Reason: Protocol Last Admin: 05/16/18 05:53 Dose: 100 mls/hr Magnesium Sulfate/Dextrose (Magnesium Sulfate 1 Gm/100 Ml D5w) 1 gm in 100 mls @ 200 mls/hr IVPB ONCE ONE Stop: 05/16/18 13:59 Potassium Phosphate 15 mmole/ (Sodium Chloride) 255 mls @ 42.5 mls/hr IVPB ONCE ONE Stop: 05/16/18 19:59 Morphine Sulfate (Morphine) 2 mg IVP Q4 PRN PRN Reason: Pain, moderate (4-7) Last Admin: 05/16/18 11:27 Dose: 2 mg - Labs Labs: 05/16/18 07:27 05/16/18 07:27 PT 14.6 SECONDS (9.7-12.2) H 05/16/18 07:27 INR 1.3 05/16/18 07:27 APTT 31 SECONDS (21-34) 05/16/18 07:27 - Constitutional Appears: Non-toxic, No Acute Distress - Head Exam Head Exam: ATRAUMATIC, NORMOCEPHALIC - Eye Exam Eye Exam: EOMI - ENT Exam ENT Exam: Mucous Membranes Moist - Neck Exam Neck Exam: Full ROM, Normal Inspection - Respiratory Exam Respiratory Exam: NORMAL BREATHING PATTERN. absent: Accessory Muscle Use, Respiratory Distress - GI/Abdominal Exam GI & Abdominal Exam: Soft, Tenderness (mild RLQ). absent: Distended, Firm, Guarding, Rigid, Rebound - Extremities Exam Extremities Exam: absent: Calf Tenderness, Pedal Edema - Neurological Exam Neurological Exam: Alert, Awake, Oriented x3 - Skin Skin Exam: Dry, Warm Assessment and Plan - Assessment and Plan (Free Text) Assessment: 32M w. perforated appendicitis -Plan for IR drainage tomorrow -Keep npo -c/w IVF -D/C heparin 2/2 allergic rxn- benadryl given -AE hoses and encourage ambulation -c/w abx per ID -will d/w attending Zemaitis PGY4
[2018-05-16] MEDS ORDERED: Potassium Phosphate 15 MMOLE in Sodium Chloride 0.9% 250 ML IVPB ONE (14:00)
--- NOTE | 2018-05-16 14:10 | CP.PCM.PN ---
Subjective - Date & Time of Evaluation Date of Evaluation: 05/16/18 Time of Evaluation: 02:00 - Subjective Subjective: dictated Objective - Vital Signs/Intake and Output Vital Signs (last 24 hours): Temp Pulse Resp BP Pulse Ox 98.0 F 67 20 109/65 97 05/16/18 07:00 05/16/18 07:00 05/16/18 07:00 05/16/18 07:00 05/16/18 07:00 Intake and Output: 05/16/18 05/16/18 06:59 18:59 Intake Total 980 Balance 980 - Medications Medications: Current Medications Acetaminophen (Tylenol 325mg Tab) 650 mg PO Q6H PRN PRN Reason: Fever >100.4 F Last Admin: 05/13/18 16:45 Dose: 650 mg Metronidazole (Flagyl) 500 mg in 100 mls @ 100 mls/hr IVPB Q8H [facility] PRN Reason: Protocol Last Admin: 05/16/18 13:10 Dose: 100 mls/hr Sodium Chloride (Sodium Chloride 0.9%) 1,000 mls @ 130 mls/hr IV .Q7H42M [facility] Last Admin: 05/16/18 04:02 Dose: 130 mls/hr Meropenem 1 gm/ Sodium (Chloride) 100 mls @ 100 mls/hr IVPB Q8 [facility] PRN Reason: Protocol Last Admin: 05/16/18 05:53 Dose: 100 mls/hr Potassium Phosphate 15 mmole/ (Sodium Chloride) 255 mls @ 42.5 mls/hr IVPB ONCE ONE Stop: 05/16/18 19:59 Morphine Sulfate (Morphine) 2 mg IVP Q4 PRN PRN Reason: Pain, moderate (4-7) Last Admin: 05/16/18 11:27 Dose: 2 mg - Labs Labs: 05/16/18 07:27 05/16/18 07:27 PT 14.6 SECONDS (9.7-12.2) H 05/16/18 07:27 INR 1.3 05/16/18 07:27 APTT 31 SECONDS (21-34) 05/16/18 07:27
[2018-05-16] MEDS ORDERED: PPN #1 IV ONE (18:00)
[2018-05-17] MEDS: Sodium Chloride 0.9% 1,000 ML IV SCH ×4 (00:14→22:33)
--- NOTE | 2018-05-17 02:41 | PN ---
DATE: 05/16/2018 SUBJECTIVE: The patient was seen today. He complained of rash on his abdomen and a macular patch. He is thinking it is from heparin, but he also rash on his back as well as abdomen. It could be related to any of the antibiotics or to other medications. We were giving gentamycin, we have it off yesterday. He is on Merrem, and he was on metronidazole, and he has abdominal abscess formation because of ruptured appendix. However, he is afebrile now, and the question remains what to give him. I doubt it is from heparin. He is other vitals are stable except for he has diffuse rash on his body, which I think could be meropenem, but he was on Zosyn before, and they do not have Levaquin. So at this time, I have discontinued Flagyl and heparin has been discontinued, and we are going to leave him on minimum antibiotics, meropenem, Diovan, and give him some Benadryl for now, and he is on multivitamins and IV fluids, he is not on much. If this rash continues to be worsening, then I think we need to change the meropenem. If this persists, then I will have to go back to Maxipime and Flagyl, and hopefully, that would not have any rash, but he needs medications as he is with a ruptured appendix, and probably already has collection in the abdomen. Wallace Hamlin MD
[2018-05-17] MEDS: Meropenem 1 GM in Sodium Chloride 0.9% 100 ML IVPB SCH ×3 (05:51→21:11)
--- NOTE | 2018-05-17 08:03 | CP.PCM.PN ---
Subjective - Date & Time of Evaluation Date of Evaluation: 05/17/18 Time of Evaluation: 08:00 - Subjective Subjective: Surgery: Dr. Shelton Pt seen and examined. Resting comfortably in bed. Pain resolved. No N/V. Occasional diarrhea. Rash on torso/abd worse despite benadryl. Objective - Vital Signs/Intake and Output Vital Signs (last 24 hours): Temp Pulse Resp BP Pulse Ox 98.2 F 71 20 101/61 97 05/16/18 23:00 05/16/18 23:00 05/16/18 23:00 05/16/18 23:00 05/16/18 23:00 Intake and Output: 05/17/18 05/17/18 06:59 18:59 Intake Total 876 Balance 876 - Medications Medications: Current Medications Acetaminophen (Tylenol 325mg Tab) 650 mg PO Q6H PRN PRN Reason: Fever >100.4 F Last Admin: 05/13/18 16:45 Dose: 650 mg Diphenhydramine HCl (Benadryl) 25 mg PO Q6 [facility] Last Admin: 05/17/18 05:50 Dose: 25 mg Meropenem 1 gm/ Sodium (Chloride) 100 mls @ 100 mls/hr IVPB Q8 [facility] PRN Reason: Protocol Last Admin: 05/17/18 05:51 Dose: 100 mls/hr Multivitamins/Vitamin C 10 ml/Calcium Gluconate 4.5 meq/Amino Acids 1,019.6774 mls @ 42 mls/hr IV .Q24H [facility] Stop: 05/17/18 17:59 Last Admin: 05/16/18 17:45 Dose: 42 mls/hr Sodium Chloride (Sodium Chloride 0.9%) 1,000 mls @ 90 mls/hr IV .Q11H7M [facility] Last Admin: 05/17/18 00:14 Dose: 90 mls/hr Morphine Sulfate (Morphine) 2 mg IVP Q4 PRN PRN Reason: Pain, moderate (4-7) Last Admin: 05/17/18 04:21 Dose: 2 mg - Labs Labs: 05/16/18 07:27 05/16/18 07:27 PT 14.6 SECONDS (9.7-12.2) H 05/16/18 07:27 INR 1.3 05/16/18 07:27 APTT 31 SECONDS (21-34) 05/16/18 07:27 - Constitutional Appears: Non-toxic, No Acute Distress - Head Exam Head Exam: ATRAUMATIC, NORMOCEPHALIC - Eye Exam Eye Exam: EOMI - ENT Exam ENT Exam: Mucous Membranes Moist - Neck Exam Neck Exam: Full ROM - Respiratory Exam Respiratory Exam: NORMAL BREATHING PATTERN. absent: Accessory Muscle Use, Respiratory Distress - Cardiovascular Exam Cardiovascular Exam: REGULAR RHYTHM - GI/Abdominal Exam GI & Abdominal Exam: Soft. absent: Distended, Firm, Guarding, Rigid, Tenderness - Extremities Exam Extremities Exam: absent: Calf Tenderness, Pedal Edema - Neurological Exam Neurological Exam: Alert, Awake, Oriented x3 - Skin Additional comments: morbilliform type rash on abd/torso Assessment and Plan - Assessment and Plan (Free Text) Assessment: 32M w. Ruptured appendicitis -For CT guided drainage today -Keep NPO -c/w abx -Hold heparin given current rash, c/w benadryl -AE hose/encourage ambulation -d/w attending Karissaitis PGY4
[2018-05-17 08:57] LABS: HEMOGLOBIN 12.3 g/dL (12.0-18.0); MEAN CELL VOLUME 80.5 fL (80.0-94.0); MEAN CORPUSCULAR HEMOGLOBIN 27.5 pg (27.0-31.0); MEAN CORPUSCULAR HGB CONC 34.1 g/dL (33.0-37.0); RBC 4.49 Mil/uL (4.40-5.90); RED CELL DISTRIBUTION WIDTH 13.6 % (11.5-14.5)
[2018-05-17 09:11] LABS: BLOOD UREA NITROGEN 7 mg/dL (9-20); GFR AFRICAN-AMERICAN > 60; GFR NON-AFRICAN AMERICAN > 60
[2018-05-17] MEDS ORDERED: Midazolam 2 MG/2 ML VIAL ONE ×2 (10:09)
[2018-05-17] MEDS ORDERED: Propofol 10 mg/ml Inj (20 ML) ONE (10:10)
--- NOTE | 2018-05-17 10:56 | PCM.SURG1 ---
Surgeon's Initial Post Op Note - Surgeon's Notes Surgeon: Munir Kurtz MD Urogynaecologist: NONE Type of Anesthesia: IV Sedation Pre-Operative Diagnosis: Pelvic abscess Operative Findings: CT showed complex pelvic collection Post-Operative Diagnosis: Pelvic abscess Operation Performed: CT guided abscess drainage. Placement of 10 fr drainage catheter. Specimen/Specimens Removed: 20 cc of purulent drainage Estimated Blood Loss: EBL {In ML}: 3 Blood Products Given: N/A Drains Used: No Drains Post-Op Condition: Fair Date of Surgery/Procedure: 05/17/18 Time of Surgery/Procedure: 10:50
--- NOTE | 2018-05-17 14:13 | CP.PCM.PN ---
Subjective - Date & Time of Evaluation Date of Evaluation: 05/17/18 Time of Evaluation: 02:00 - Subjective Subjective: dictated Objective - Vital Signs/Intake and Output Vital Signs (last 24 hours): Temp Pulse Resp BP Pulse Ox 98.6 F 77 18 118/56 L 98 05/17/18 11:39 05/17/18 11:39 05/17/18 11:39 05/17/18 11:39 05/17/18 11:39 Intake and Output: 05/17/18 05/17/18 06:59 18:59 Intake Total 876 Balance 876 - Medications Medications: Current Medications Acetaminophen (Tylenol 325mg Tab) 650 mg PO Q6H PRN PRN Reason: Fever >100.4 F Last Admin: 05/13/18 16:45 Dose: 650 mg Diphenhydramine HCl (Benadryl) 25 mg PO Q6 [facility] Last Admin: 05/17/18 11:52 Dose: 25 mg Meropenem 1 gm/ Sodium (Chloride) 100 mls @ 100 mls/hr IVPB Q8 [facility] PRN Reason: Protocol Last Admin: 05/17/18 13:51 Dose: Not Given Sodium Chloride (Sodium Chloride 0.9%) 1,000 mls @ 90 mls/hr IV .Q11H7M [facility] Last Admin: 05/17/18 11:00 Dose: Not Given Potassium Chloride (Potassium Chloride 20 Meq/100 Ml) 20 meq in 100 mls @ 50 mls/hr IVPB Q2H [facility] Stop: 05/17/18 15:29 Last Admin: 05/17/18 11:53 Dose: 50 mls/hr Morphine Sulfate (Morphine) 2 mg IVP Q4 PRN PRN Reason: Pain, moderate (4-7) Last Admin: 05/17/18 11:52 Dose: 2 mg - Labs Labs: 05/17/18 08:42 05/17/18 08:42 PT 14.6 SECONDS (9.7-12.2) H 05/16/18 07:27 INR 1.3 05/16/18 07:27 APTT 31 SECONDS (21-34) 05/16/18 07:27
--- NOTE | 2018-05-17 18:52 | PN ---
DATE: 05/17/2018 SUBJECTIVE: The patient just came back from the IR and showed complex pelvic collection and they drained 20 mL of purulent drainage from there and the patient is still complaining of pain. He is n.p.o. He is on morphine 2 mg every 4 hours and rash look slightly better and unable to pain and he does not want to move and he was asking for food and with too many issues right now. PHYSICAL EXAMINATION: VITAL SIGNS: T-max is 98.6, pulse 77, blood pressure 118/56, respirations are 18. HEENT: Head is atraumatic, normocephalic. NECK: Supple. LUNGS: Clear. HEART: S1 and S2, regular. ABDOMEN: He has a drain present and has serosanguineous at this time. EXTREMITIES: Have no edema. LABORATORY DATA: Labs are noted. Labs show white count of 16, hemoglobin 12.3, hematocrit 36.7, platelet count is 341. Sodium is 135, potassium 3.3, BUN 7, creatinine 0.6. So, he did get some potassium. It seems he is on every 12 and we will renew the meropenem to cover. He did develop a rash and that is why I discontinued Flagyl and heparin and is trying to see if this meropenem will continue without any rash and this will follow. We will follow. Wallace Hamlin MD
[2018-05-17] MEDS: DiphenhydrAMINE 50 mg/ml Inj IVP SCH (19:19)
[2018-05-17] MEDS: Piperacillin/Tazobact 3.375 GM in Sodium Chloride 100 ML IVPB SCH (23:07)
[2018-05-18] MEDS ORDERED: Hydrocortisone 2.5% Oint (20 gm) TOP PRN (02:31)
[2018-05-18] MEDS: Piperacillin/Tazobact 3.375 GM in Sodium Chloride 100 ML IVPB SCH ×4 (05:21→21:42)
[2018-05-18] MEDS: DiphenhydrAMINE 50 mg/ml Inj IVP SCH ×3 (06:01→13:29)
[2018-05-18 07:09] LABS: HEMOGLOBIN 13.5 g/dL (12.0-18.0); MEAN CELL VOLUME 80.6 fL (80.0-94.0); MEAN CORPUSCULAR HEMOGLOBIN 27.7 pg (27.0-31.0); MEAN CORPUSCULAR HGB CONC 34.3 g/dL (33.0-37.0); MEAN PLATELET VOLUME 7.3 fL (7.2-11.7); RBC 4.87 Mil/uL (4.40-5.90); RED CELL DISTRIBUTION WIDTH 13.9 % (11.5-14.5); WHITE BLOOD COUNT 17.7 K/uL (4.8-10.8)
[2018-05-18 07:26] LABS: BLOOD UREA NITROGEN 5 mg/dL (9-20); CALCIUM 7.9 mg/dl (8.6-10.4); GFR AFRICAN-AMERICAN > 60; GFR NON-AFRICAN AMERICAN > 60
--- NOTE | 2018-05-18 07:30 | CP.PCM.PN ---
Subjective - Date & Time of Evaluation Date of Evaluation: 05/18/18 Time of Evaluation: 05:50 - Subjective Subjective: General Surgery Note for Dr. Shelton Patient seen and examined at bedside. No acute event overnight. Patient is s/p IR drainage for intraabdominal abscess POD#1. Patient states pain is controlled. He denies any fever/chills or nausea/vomiting. He is tolerating clear liquids. He reports to worsening of rash. He states that he still has pruritus despite benadryl. Patient has no other complaints at this time. Objective - Vital Signs/Intake and Output Vital Signs (last 24 hours): Temp Pulse Resp BP Pulse Ox 98.1 F 83 20 104/67 98 05/18/18 04:00 05/18/18 04:00 05/18/18 04:00 05/18/18 04:00 05/18/18 04:00 Intake and Output: 05/18/18 05/18/18 06:59 18:59 Intake Total 1865 Output Total 1665 Balance 200 - Medications Medications: Current Medications Acetaminophen (Tylenol 325mg Tab) 650 mg PO Q6H PRN PRN Reason: Fever >100.4 F Last Admin: 05/13/18 16:45 Dose: 650 mg Diphenhydramine HCl (Benadryl) 50 mg IVP Q6H [facility] Stop: 05/18/18 13:01 Last Admin: 05/18/18 06:01 Dose: 50 mg Hydrocortisone (Cortizone 2.5%) 0 gm TOP BID PRN PRN Reason: Rash Last Admin: 05/18/18 03:14 Dose: 1 applic Sodium Chloride (Sodium Chloride 0.9%) 1,000 mls @ 90 mls/hr IV .Q11H7M [facility] Last Admin: 05/17/18 22:33 Dose: Not Given Piperacillin Sod/Tazobactam (Sod 3.375 gm/ Sodium Chloride) 100 mls @ 200 mls/ hr IVPB Q6H [facility] PRN Reason: Protocol Last Admin: 05/18/18 05:21 Dose: 200 mls/hr Ketorolac Tromethamine (Toradol) 30 mg IVP Q6 [facility] Stop: 05/18/18 18:01 Last Admin: 05/18/18 05:20 Dose: 30 mg Morphine Sulfate (Morphine) 4 mg IVP Q2H PRN PRN Reason: Pain, moderate (4-7) Last Admin: 05/18/18 05:54 Dose: 4 mg - Labs Labs: 05/18/18 06:38 05/18/18 06:38 PT 14.6 SECONDS (9.7-12.2) H 05/16/18 07:27 INR 1.3 05/16/18 07:27 APTT 31 SECONDS (21-34) 05/16/18 07:27 - Constitutional Appears: No Acute Distress - Head Exam Head Exam: ATRAUMATIC, NORMOCEPHALIC - Eye Exam Eye Exam: EOMI, Normal appearance Pupil Exam: PERRL - ENT Exam ENT Exam: Mucous Membranes Moist - Respiratory Exam Respiratory Exam: NORMAL BREATHING PATTERN - Cardiovascular Exam Cardiovascular Exam: REGULAR RHYTHM - GI/Abdominal Exam GI & Abdominal Exam: Soft, Tenderness (RLQ), Normal Bowel Sounds. absent: Distended, Firm, Guarding, Rigid, Rebound Additional comments: maculopapular rash covering abdomen and extending to Left thigh IR drain in RLQ with 40 cc of purulent drainage since insertion - Extremities Exam Extremities Exam: Normal Capillary Refill - Back Exam Back Exam: absent: CVA tenderness (L), CVA tenderness (R) - Neurological Exam Neurological Exam: Alert, Awake, Oriented x3 - Psychiatric Exam Psychiatric exam: Normal Affect, Normal Mood - Skin Skin Exam: Dry, Intact, Rash (maculopapular, blanches, on abdomen extending to Left thigh), Warm Assessment and Plan - Assessment and Plan (Free Text) Assessment: 32 M with perforated appendicitis, s/p IR drainage POD#1 Plan: -FLD, ADAT -Change IV fluids to D5 1/2 NS with 20 mEq KCL -Replete Mg, Phos, K (desired values of 2,3,4 respectively) -Continue IV antibiotics -Continue Benadryl -Hydrocortisone cream -Tylenol PRN for fevers -Analgesics/Anti-emetics PRN -Strict I's & O's -Monitor Bowel function -Discussed with Dr. Nikita Addison PGY2
[2018-05-18] MEDS: Magnesium Sulfate 1 gm in D5W 1 GM/100 ML BAG IVPB SCH ×2 (08:13→08:45)
[2018-05-18] MEDS ORDERED: Potassium Phosphate 30 MMOLE in Sodium Chloride 0.9% 250 ML IV ONE (09:00)
[2018-05-18] MEDS: Potassium Ch 20mEq in D5-1/2NS 1,000 ML IV SCH ×2 (09:11→17:46)
--- NOTE | 2018-05-18 12:15 | CT ---
PROCEDURE: Date of procedure: 05/17/2018 Procedure: 1. Pelvic abscess drainage with CT guidance, CPT 08000 Medications: The patient received IV sedation administered by anesthesiologist Radiation: 1641.84 mGy-cm HISTORY: Perforated appendicitis and pelvic abscess. TECHNIQUE: Following informed consent procedure time-out, non contrast CT was performed which showed a large complex anterior pelvic collection. The skin localizer was placed on the patient's abdomen and a repeat CT scan performed. The skin was marked, prepped, and draped in the usual sterile fashion. Under CT guidance, a [place] drainage catheter was advanced into the collection. Upon return of purulent drainage, the catheter exchanged over an 035 guidewire and the tract was dilated to accommodate a 10 [place] pigtail drainage catheter formed within the collection. The position of the 10 Fr drainage catheter was confirmed with repeat CT scan. 20 cubic centimeters of purulent drainage was removed and sent for culture and sensitivity. The catheter was secured the patient's skin. A dressing was applied. IMPRESSION: CT-guided abscess drainage within the placement of a 10 [place] drainage catheter with abscess. The fluid specimen was sent for culture and sensitivity.
--- NOTE | 2018-05-18 17:24 | CP.PCM.PN ---
Subjective - Date & Time of Evaluation Date of Evaluation: 05/18/18 Time of Evaluation: 03:00 - Subjective Subjective: dictated Objective - Vital Signs/Intake and Output Vital Signs (last 24 hours): Temp Pulse Resp BP Pulse Ox 98.6 F 92 H 20 109/72 98 05/18/18 15:00 05/18/18 15:00 05/18/18 15:00 05/18/18 15:00 05/18/18 15:00 Intake and Output: 05/18/18 05/18/18 06:59 18:59 Intake Total 1865 1946 Output Total 1665 15 Balance 200 1931 - Medications Medications: Current Medications Acetaminophen (Tylenol 325mg Tab) 650 mg PO Q6H PRN PRN Reason: Fever >100.4 F Last Admin: 05/13/18 16:45 Dose: 650 mg Hydrocortisone (Cortizone 2.5%) 0 gm TOP BID PRN PRN Reason: Rash Last Admin: 05/18/18 03:14 Dose: 1 applic Piperacillin Sod/Tazobactam (Sod 3.375 gm/ Sodium Chloride) 100 mls @ 200 mls/ hr IVPB Q6H [facility] PRN Reason: Protocol Last Admin: 05/18/18 15:45 Dose: 200 mls/hr Potassium Chloride/Dextrose/Sod Cl (Potassium Chl 20 Meq In D5-1/2ns) 1,000 mls @ 130 mls/hr IV .Q7H42M [facility] Last Admin: 05/18/18 09:11 Dose: 130 mls/hr Ketorolac Tromethamine (Toradol) 30 mg IVP Q6 [facility] Stop: 05/18/18 18:01 Last Admin: 05/18/18 11:11 Dose: 30 mg Morphine Sulfate (Morphine) 4 mg IVP Q2H PRN PRN Reason: Pain, moderate (4-7) Last Admin: 05/18/18 15:45 Dose: 4 mg - Labs Labs: 05/18/18 06:38 05/18/18 06:38 PT 14.6 SECONDS (9.7-12.2) H 05/16/18 07:27 INR 1.3 05/16/18 07:27 APTT 31 SECONDS (21-34) 05/16/18 07:27
--- NOTE | 2018-05-18 21:21 | PN ---
DATE: 05/18/2018 The patient's rash is little better. He is changed from the Merrem to Zosyn at this time. He reported to be worsening of rash this morning and was still having pruritus, and Zosyn, we will see if this causes him. Otherwise, we will have to switch it to Maxipime and Flagyl. His fluid culture is growing gram-negatives, and we will evaluate. He also is getting local cream at this time and has a ABIEL drain, and he complains of dysuria, so we will order a UA and urine C and S. The patient is otherwise afebrile. Heart rate is 90, and vitals are stable. He is alert, awake; and he is on IV antibiotics. He is only on Zosyn at this time. Initially, he was on Merrem, Flagyl, and heparin, but I do not think heparin was the cause but we will follow. Wallace Hamlin MD
[2018-05-18 22:54] LABS: URINE BILIRUBIN NEGATIVE (NEGATIVE); URINE BLOOD 1+ (NEGATIVE); URINE CLARITY Clear (Clear); URINE COLOR Straw (YELLOW); URINE GLUCOSE (UA) NORMAL (Normal); URINE LEUKOCYTE ESTERASE NEG Leu/uL (Negative); URINE PROTEIN NEGATIVE (NEGATIVE); URINE UROBILINOGEN NORMAL mg/dL (0.2-1.0)
[2018-05-19] MEDS: Potassium Ch 20mEq in D5-1/2NS 1,000 ML IV SCH ×4 (01:53→17:41)
[2018-05-19] MEDS: Piperacillin/Tazobact 3.375 GM in Sodium Chloride 100 ML IVPB SCH ×4 (04:07→21:54)
--- NOTE | 2018-05-19 08:18 | CP.PCM.PN ---
<RupertglennyLorenzo - Last Filed: 05/19/18 19:52> Subjective - Date & Time of Evaluation Date of Evaluation: 05/19/18 Time of Evaluation: 08:04 - Subjective Subjective: General Surgery Progress Note for Dr. Shelton 32M seen and evaluated this morning. Patient is resting comfortably in bed. No acute events overnight. States he is having pain near the drain site otherwise is well controlled. Also admits to pain and burning with urination. The abdmoinal rash is improving however still pruritic. Tolerating liquids. Minimal ambulation and still not using incentive spirometer. Objective - Vital Signs/Intake and Output Vital Signs (last 24 hours): Temp Pulse Resp BP Pulse Ox 99.6 F 93 H 20 100/61 97 05/19/18 04:05 05/19/18 04:05 05/19/18 04:05 05/19/18 04:05 05/18/18 23:00 Intake and Output: 05/19/18 05/19/18 06:59 18:59 Intake Total 3150 Output Total 3015 Balance 135 - Medications Medications: Current Medications Acetaminophen (Tylenol 325mg Tab) 650 mg PO Q6H PRN PRN Reason: Fever >100.4 F Last Admin: 05/13/18 16:45 Dose: 650 mg Hydrocortisone (Cortizone 2.5%) 0 gm TOP BID PRN PRN Reason: Rash Last Admin: 05/18/18 03:14 Dose: 1 applic Piperacillin Sod/Tazobactam (Sod 3.375 gm/ Sodium Chloride) 100 mls @ 200 mls/ hr IVPB Q6H [facility] PRN Reason: Protocol Last Admin: 05/19/18 04:07 Dose: 200 mls/hr Potassium Chloride/Dextrose/Sod Cl (Potassium Chl 20 Meq In D5-1/2ns) 1,000 mls @ 130 mls/hr IV .Q7H42M [facility] Last Admin: 05/19/18 01:53 Dose: 130 mls/hr Morphine Sulfate (Morphine) 2 mg IVP Q2H PRN PRN Reason: Pain, moderate (4-7) Last Admin: 05/19/18 07:37 Dose: 2 mg - Labs Labs: 05/18/18 06:38 05/18/18 06:38 PT 14.6 SECONDS (9.7-12.2) H 05/16/18 07:27 INR 1.3 05/16/18 07:27 APTT 31 SECONDS (21-34) 05/16/18 07:27 - Constitutional Appears: Well, Non-toxic, No Acute Distress - Head Exam Head Exam: ATRAUMATIC, NORMAL INSPECTION, NORMOCEPHALIC - Eye Exam Eye Exam: EOMI, Normal appearance - Respiratory Exam Respiratory Exam: Clear to Ausculation Bilateral, NORMAL BREATHING PATTERN - Cardiovascular Exam Cardiovascular Exam: REGULAR RHYTHM, +S1, +S2. absent: Murmur - GI/Abdominal Exam GI & Abdominal Exam: Soft, Tenderness, Normal Bowel Sounds. absent: Distended Additional comments: IR drain in RLQ drained 15cc purulent fluid overnight, 30cc/24hours - Neurological Exam Neurological Exam: Alert, Awake, Oriented x3 - Psychiatric Exam Psychiatric exam: Normal Affect, Normal Mood - Skin Skin Exam: Normal Color, Rash, Warm Additional comments: maculopapular, blanches, on abdomen - improving Assessment and Plan - Assessment and Plan (Free Text) Assessment: 32 M with perforated appendicitis, s/p IR drainage POD#2 Plan: Elevated WBC today - if continues will change antibiotics per ID recommendations and order CT Abd/Pel w/ IV and PO contrast FLD, ADAT Change IV fluids to D5 1/2 NS with 20 mEq KCL Replete Mg, Phos, K (desired values of 2,3,4 respectively) Continue IV antibiotics Continue Benadryl Hydrocortisone cream Tylenol PRN for fevers Analgesics/Anti-emetics PRN Strict I's & O's Monitor Bowel function Discussed with Dr. Nikita Cox PGY1 <Doni Shelton - Last Filed: 05/21/18 12:50> Objective - Vital Signs/Intake and Output Vital Signs (last 24 hours): Temp Pulse Resp BP Pulse Ox 99.6 F 94 H 20 120/75 96 05/21/18 07:10 05/21/18 07:10 05/21/18 07:10 05/21/18 07:10 05/21/18 07:10 Intake and Output: 05/21/18 05/21/18 06:59 18:59 Intake Total 2040 Output Total 1015 Balance 1025 - Medications Medications: Current Medications Acetaminophen (Tylenol 325mg Tab) 650 mg PO Q6H PRN PRN Reason: Fever >100.4 F Last Admin: 05/13/18 16:45 Dose: 650 mg Docusate Sodium (Colace) 100 mg PO BID [facility] Last Admin: 05/21/18 09:49 Dose: 100 mg Hydrocortisone (Cortizone 2.5%) 0 gm TOP BID PRN PRN Reason: Rash Last Admin: 05/18/18 03:14 Dose: 1 applic Potassium Chloride/Dextrose/Sod Cl (Potassium Chl 20 Meq In D5-1/2ns) 1,000 mls @ 130 mls/hr IV .Q7H42M [facility] Last Admin: 05/21/18 07:35 Dose: 130 mls/hr Fluconazole 100 mg/ (Miscellaneous) 50 mls @ 100 mls/hr IVPB DAILY [facility] PRN Reason: Protocol Last Admin: 05/21/18 11:10 Dose: 100 mls/hr Cefepime HCl 2 gm/ Dextrose 50 mls @ 100 mls/hr IVPB Q8H [facility] PRN Reason: Protocol Morphine Sulfate (Morphine) 2 mg IVP Q2H PRN PRN Reason: Pain, moderate (4-7) Last Admin: 05/21/18 07:53 Dose: 2 mg - Labs Labs: 05/21/18 06:43 05/21/18 06:43 PT 14.6 SECONDS (9.7-12.2) H 05/16/18 07:27 INR 1.3 05/16/18 07:27 APTT 31 SECONDS (21-34) 05/16/18 07:27 Assessment and Plan - Assessment and Plan (Free Text) Plan: Persistent elevated WBC count. Altered Abx secondary to rash reaction. If persistent WBC will repeat CTAP with PO and IV contrast tomorrow. Abd with focal tenderness in RLQ/around drain insertion site. ID recs appreciated
[2018-05-19 11:40] LABS: BASO # 0.1 K/uL (0.0-0.2); BASO % 0.4 % (0.0-2.0); EOS # 0.5 K/uL (0.0-0.7); EOS % 2.3 % (0.0-4.0); HEMOGLOBIN 11.3 g/dL (12.0-18.0); LYMPH # 1.2 K/uL (1.0-4.3); LYMPH % 5.2 % (20.0-40.0); MEAN CELL VOLUME 81.2 fL (80.0-94.0); MEAN CORPUSCULAR HEMOGLOBIN 27.5 pg (27.0-31.0); MEAN CORPUSCULAR HGB CONC 33.9 g/dL (33.0-37.0); MEAN PLATELET VOLUME 7.2 fL (7.2-11.7); MONO % 4.2 % (0.0-10.0); NEUT # 20.2 K/uL (1.8-7.0); NEUT % 87.9 % (50.0-75.0); PLATELET COUNT 379 K/uL (130-400); RBC 4.11 Mil/uL (4.40-5.90); WHITE BLOOD COUNT 22.9 K/uL (4.8-10.8)
[2018-05-19 12:04] LABS: ANISOCYTOSIS SLIGHT; BANDS 3 % (0-2); EOSINOPHIL 1 % (0-4); HYPOCHROMIC SLIGHT; LYMPHOCYTE 5 % (20-40); MONOCYTE 6 % (0-10); NEUTROPHIL 85 % (50-75); PLATELET ESTIMATE NORMAL (NORMAL); TOTAL CELLS COUNTED 100
[2018-05-19 12:05] LABS: ALB/GLOB RATIO 1.1 (1.0-2.1); ALBUMIN 2.9 g/dL (3.5-5.0); ALT/SGPT 31 U/L (21-72); AST/SGOT 31 U/L (17-59); BLOOD UREA NITROGEN < 2 mg/dL (9-20); CALCIUM 7.9 mg/dl (8.6-10.4); GFR AFRICAN-AMERICAN > 60; GFR NON-AFRICAN AMERICAN > 60; POLYCHROMIC SLIGHT; TOXIC GRANULATION PRESENT
[2018-05-19] MEDS: Fluconazole IV 200mg/100 ml NS 100 MG in Premixed IV 1 EA IVPB SCH (14:16)
--- NOTE | 2018-05-19 17:18 | PN ---
DATE: 05/19/2018 SUBJECTIVE: The patient complains of dysuria. He is having pain near the drain and also he complains of having dysuria and lot of pain. I had ordered a UA, urine C and S yesterday and that was collected. We had to discontinue meropenem and Flagyl as he was having rash and also heparin and we are not sure which one caused the problems. PHYSICAL EXAMINATION GENERAL: At this time, he is awake and alert. VITAL SIGNS: T-max is 99.6 right now, pulse of 94, blood pressure 107/68, respirations are 20. HEENT: Head is atraumatic. NECK: Supple. Rash is less. HEART: S1 and S2, regular. ABDOMEN: Has a ABIEL drain. He is complaining of dysuria. EXTREMITIES: No edema. LABORATORY DATA: Labs show white count has increased to 22.9, hemoglobin 11.3, hematocrit 33.3, and platelet count is 379, is unremarkable, but white count is going up and BUN is less than 2 and creatinine 0.6. His UA which we did yesterday did not show any leukocytes, wbc 1, Rbc less than 1, blood 1+. I am not sure why he is complaining of that . ASSESSMENT AND PLAN: I will put him on a stool softener at this time and put him on Pyridium as he is constipated. We will follow. If the white count increases further, I think we may have to again change the antibiotics. We will repeat the labs tomorrow. Wallace Hamlin MD
[2018-05-20] MEDS: Potassium Ch 20mEq in D5-1/2NS 1,000 ML IV SCH ×5 (00:01→23:15)
[2018-05-20] MEDS: Piperacillin/Tazobact 3.375 GM in Sodium Chloride 100 ML IVPB SCH ×4 (04:28→23:37)
[2018-05-20 07:26] LABS: BASO # 0.1 K/uL (0.0-0.2); BASO % 0.4 % (0.0-2.0); EOS # 0.4 K/uL (0.0-0.7); EOS % 1.9 % (0.0-4.0); HEMOGLOBIN 11.7 g/dL (12.0-18.0); LYMPH # 1.3 K/uL (1.0-4.3); LYMPH % 6.2 % (20.0-40.0); MEAN CELL VOLUME 80.3 fL (80.0-94.0); MEAN CORPUSCULAR HEMOGLOBIN 27.5 pg (27.0-31.0); MEAN CORPUSCULAR HGB CONC 34.3 g/dL (33.0-37.0); MONO # 1.2 K/uL (0.0-0.8); MONO % 5.7 % (0.0-10.0); NEUT # 18.4 K/uL (1.8-7.0); NEUT % 85.8 % (50.0-75.0); PLATELET COUNT 407 K/uL (130-400); RBC 4.25 Mil/uL (4.40-5.90); WHITE BLOOD COUNT 21.5 K/uL (4.8-10.8)
[2018-05-20 07:53] LABS: ALBUMIN 2.8 g/dL (3.5-5.0); ALT/SGPT 35 U/L (21-72); AST/SGOT 29 U/L (17-59); CALCIUM 7.3 mg/dl (8.6-10.4); GFR AFRICAN-AMERICAN > 60; GFR NON-AFRICAN AMERICAN > 60
[2018-05-20 07:57] LABS: BLOOD UREA NITROGEN < 2 mg/dL (9-20)
[2018-05-20 08:56] LABS: BANDS 3 % (0-2); EOSINOPHIL 1 % (0-4); LYMPHOCYTE 5 % (20-40); MONOCYTE 7 % (0-10); NEUTROPHIL 84 % (50-75); TOTAL CELLS COUNTED 100
[2018-05-20 08:57] LABS: HYPOCHROMIC SLIGHT; PLATELET ESTIMATE NORMAL (NORMAL); POLYCHROMIC SLIGHT
[2018-05-20] MEDS: Fluconazole IV 200mg/100 ml NS 100 MG in Premixed IV 1 EA IVPB SCH (09:37)
--- NOTE | 2018-05-20 10:32 | CP.PCM.PN ---
Addendum entered and electronically signed by Zain Antonio DO 05/20/18 19:59: CT Abd & Pel demonstrating 2 new intra-abdominal collections IR eval for drainage NPO p MN Will add vancomycin to ABx regimen DO NOT FLUSH intra-abdominal pigtail catheter F/u AM labs D/w Dr. Nikita Avilez PGY3 Original Note: <Lorenzo Cox - Last Filed: 05/20/18 12:16> Subjective - Date & Time of Evaluation Date of Evaluation: 05/20/18 Time of Evaluation: 10:30 - Subjective Subjective: 32M seen and evaluated this morning at bedside. Patient is resting comfortably in bed. He complains of cramping pain in the right lower quadrant that radiates to the inguinal region, which makes it difficult for him to walk. He denies any dysuria or burning with urination, however admits to dribbling. His rash has improved and is no longer pruritic. He is tolerating his diet. No acute events overnight. Denies f/c, n/v/d, SOB, CP. Objective - Vital Signs/Intake and Output Vital Signs (last 24 hours): Temp Pulse Resp BP Pulse Ox 98.9 F 88 20 101/67 94 L 05/20/18 07:00 05/20/18 07:00 05/20/18 07:00 05/20/18 07:00 05/20/18 07:00 Intake and Output: 05/20/18 05/20/18 06:59 18:59 Intake Total 3247 Output Total 3285 Balance -38 - Medications Medications: Current Medications Acetaminophen (Tylenol 325mg Tab) 650 mg PO Q6H PRN PRN Reason: Fever >100.4 F Last Admin: 05/13/18 16:45 Dose: 650 mg Docusate Sodium (Colace) 100 mg PO BID [facility] Last Admin: 05/20/18 09:08 Dose: 100 mg Hydrocortisone (Cortizone 2.5%) 0 gm TOP BID PRN PRN Reason: Rash Last Admin: 05/18/18 03:14 Dose: 1 applic Piperacillin Sod/Tazobactam (Sod 3.375 gm/ Sodium Chloride) 100 mls @ 200 mls/ hr IVPB Q6H [facility] PRN Reason: Protocol Last Admin: 05/20/18 09:43 Dose: 200 mls/hr Potassium Chloride/Dextrose/Sod Cl (Potassium Chl 20 Meq In D5-1/2ns) 1,000 mls @ 130 mls/hr IV .Q7H42M [facility] Last Admin: 05/20/18 09:10 Dose: 130 mls/hr Fluconazole 100 mg/ (Miscellaneous) 50 mls @ 100 mls/hr IVPB DAILY [facility] PRN Reason: Protocol Last Admin: 05/20/18 09:37 Dose: 100 mls/hr Morphine Sulfate (Morphine) 2 mg IVP Q2H PRN PRN Reason: Pain, moderate (4-7) Last Admin: 05/20/18 09:09 Dose: 2 mg Phenazopyridine HCl (Pyridium) 200 mg PO TIDPC [facility] Last Admin: 05/20/18 09:08 Dose: 200 mg - Labs Labs: 05/20/18 07:15 05/20/18 07:15 PT 14.6 SECONDS (9.7-12.2) H 05/16/18 07:27 INR 1.3 05/16/18 07:27 APTT 31 SECONDS (21-34) 05/16/18 07:27 - Constitutional Appears: Well, Non-toxic, No Acute Distress - Head Exam Head Exam: ATRAUMATIC, NORMAL INSPECTION, NORMOCEPHALIC - Eye Exam Eye Exam: EOMI, Normal appearance - Respiratory Exam Respiratory Exam: Clear to Ausculation Bilateral, NORMAL BREATHING PATTERN - Cardiovascular Exam Cardiovascular Exam: REGULAR RHYTHM, +S1, +S2. absent: Murmur - GI/Abdominal Exam GI & Abdominal Exam: Soft, Tenderness, Normal Bowel Sounds. absent: Distended Additional comments: RLQ tenderness to palpation Drain 5cc serous output overnight - Neurological Exam Neurological Exam: Alert, Awake, Oriented x3 - Psychiatric Exam Psychiatric exam: Normal Affect, Normal Mood - Skin Skin Exam: Dry, Intact, Normal Color, Warm Assessment and Plan - Assessment and Plan (Free Text) Assessment: 32 M with perforated appendicitis, s/p IR drainage POD#3 Plan: Monitor labs - further recs per ID Urine cx shows no growth, Blood cx positive for E.Coli FLD, ADAT IV fluids to D5 1/2 NS with 20 mEq KCL Replete Mg, Phos, K (desired values of 2,3,4 respectively) Continue IV antibiotics - zosyn and diflucan Continue Benadryl Hydrocortisone cream Tylenol PRN for fevers Analgesics/Anti-emetics PRN Strict I's & O's Monitor Bowel function Encourage IS and ambulation Discussed with Dr. Nikita Cox PGY1 <Doni Shelton - Last Filed: 05/21/18 12:52> Objective - Vital Signs/Intake and Output Vital Signs (last 24 hours): Temp Pulse Resp BP Pulse Ox 99.6 F 94 H 20 120/75 96 05/21/18 07:10 05/21/18 07:10 05/21/18 07:10 05/21/18 07:10 05/21/18 07:10 Intake and Output: 05/21/18 05/21/18 06:59 18:59 Intake Total 2040 Output Total 1015 Balance 1025 - Medications Medications: Current Medications Acetaminophen (Tylenol 325mg Tab) 650 mg PO Q6H PRN PRN Reason: Fever >100.4 F Last Admin: 05/13/18 16:45 Dose: 650 mg Docusate Sodium (Colace) 100 mg PO BID [facility] Last Admin: 05/21/18 09:49 Dose: 100 mg Hydrocortisone (Cortizone 2.5%) 0 gm TOP BID PRN PRN Reason: Rash Last Admin: 05/18/18 03:14 Dose: 1 applic Potassium Chloride/Dextrose/Sod Cl (Potassium Chl 20 Meq In D5-1/2ns) 1,000 mls @ 130 mls/hr IV .Q7H42M [facility] Last Admin: 05/21/18 07:35 Dose: 130 mls/hr Fluconazole 100 mg/ (Miscellaneous) 50 mls @ 100 mls/hr IVPB DAILY [facility] PRN Reason: Protocol Last Admin: 05/21/18 11:10 Dose: 100 mls/hr Cefepime HCl 2 gm/ Dextrose 50 mls @ 100 mls/hr IVPB Q8H [facility] PRN Reason: Protocol Morphine Sulfate (Morphine) 2 mg IVP Q2H PRN PRN Reason: Pain, moderate (4-7) Last Admin: 05/21/18 07:53 Dose: 2 mg - Labs Labs: 05/21/18 06:43 05/21/18 06:43 PT 14.6 SECONDS (9.7-12.2) H 05/16/18 07:27 INR 1.3 05/16/18 07:27 APTT 31 SECONDS (21-34) 05/16/18 07:27 Assessment and Plan - Assessment and Plan (Free Text) Plan: Rash improved. Persistent WBC elevated. Added Vancomycin. Cultures back and tailor abx for sensitivities. CTAP with PO and IV contrast to evaluate interval change of abscess/drain position.
[2018-05-20] MEDS ORDERED: Iohexol 240 (50 ml) PO ONE (14:00)
[2018-05-20] MEDS ORDERED: Iodixanol 320 MG/ML 100 ML BOTTLE IV ONE (15:10)
[2018-05-20] MEDS: Morphine 4 MG/ML VIAL IVP PRN ×3 (15:32→20:35)
[2018-05-20] MEDS ORDERED: Vancomycin 500 mg Inj IVPB SCH (18:30)
[2018-05-20] MEDS ORDERED: DiphenhydrAMINE 50 mg/ml Inj IVP ONE (23:45)
[2018-05-21 07:05] LABS: BASO # 0.1 K/uL (0.0-0.2); BASO % 0.3 % (0.0-2.0); EOS # 0.4 K/uL (0.0-0.7); EOS % 2.2 % (0.0-4.0); HEMOGLOBIN 12.4 g/dL (12.0-18.0); MEAN CELL VOLUME 81.3 fL (80.0-94.0); MEAN CORPUSCULAR HEMOGLOBIN 27.3 pg (27.0-31.0); MEAN CORPUSCULAR HGB CONC 33.6 g/dL (33.0-37.0); MEAN PLATELET VOLUME 6.9 fL (7.2-11.7); MONO # 0.8 K/uL (0.0-0.8); MONO % 4.2 % (0.0-10.0); NEUT # 17.8 K/uL (1.8-7.0); NEUT % 88.3 % (50.0-75.0); PLATELET COUNT 467 K/uL (130-400); RBC 4.54 Mil/uL (4.40-5.90); RED CELL DISTRIBUTION WIDTH 14.2 % (11.5-14.5); WHITE BLOOD COUNT 20.1 K/uL (4.8-10.8)
[2018-05-21] MEDS: Potassium Ch 20mEq in D5-1/2NS 1,000 ML IV SCH ×3 (07:35→21:01)
[2018-05-21 07:38] LABS: ALB/GLOB RATIO 0.9 (1.0-2.1); ALBUMIN 2.8 g/dL (3.5-5.0); ALT/SGPT 43 U/L (21-72); AST/SGOT 44 U/L (17-59); BLOOD UREA NITROGEN 2 mg/dL (9-20); CALCIUM 7.6 mg/dl (8.6-10.4); GFR AFRICAN-AMERICAN > 60; GFR NON-AFRICAN AMERICAN > 60
--- NOTE | 2018-05-21 07:49 | CP.PCM.PN ---
<Andre Addison - Last Filed: 05/21/18 14:46> Subjective - Date & Time of Evaluation Date of Evaluation: 05/21/18 Time of Evaluation: 06:05 - Subjective Subjective: General Surgery Note for Dr. Shelton Patient seen and examined at bedside. No acute event overnight. Patient states pain is controlled. He is still complaining of pruritis from rash due to IV antibiotics ( vancomycin and gentamicin). Patient is tolerating liquids. He states that he is passing flatus and had a BM yesterday. No other complaints at this time. Objective - Vital Signs/Intake and Output Vital Signs (last 24 hours): Temp Pulse Resp BP Pulse Ox 99.1 F 89 20 109/71 97 05/20/18 23:00 05/20/18 23:00 05/20/18 23:00 05/20/18 23:00 05/20/18 23:00 Intake and Output: 05/21/18 05/21/18 06:59 18:59 Intake Total 2040 Output Total 1015 Balance 1025 - Medications Medications: Current Medications Acetaminophen (Tylenol 325mg Tab) 650 mg PO Q6H PRN PRN Reason: Fever >100.4 F Last Admin: 05/13/18 16:45 Dose: 650 mg Docusate Sodium (Colace) 100 mg PO BID [facility] Last Admin: 05/20/18 17:45 Dose: 100 mg Hydrocortisone (Cortizone 2.5%) 0 gm TOP BID PRN PRN Reason: Rash Last Admin: 05/18/18 03:14 Dose: 1 applic Potassium Chloride/Dextrose/Sod Cl (Potassium Chl 20 Meq In D5-1/2ns) 1,000 mls @ 130 mls/hr IV .Q7H42M [facility] Last Admin: 05/21/18 07:35 Dose: 130 mls/hr Fluconazole 100 mg/ (Miscellaneous) 50 mls @ 100 mls/hr IVPB DAILY [facility] PRN Reason: Protocol Last Admin: 05/20/18 09:37 Dose: 100 mls/hr Vancomycin HCl 1,250 mg/ (Sodium Chloride) 250 mls @ 166.667 mls/hr IVPB Q12H [facility] Last Admin: 05/20/18 21:22 Dose: 166.667 mls/hr Morphine Sulfate (Morphine) 2 mg IVP Q2H PRN PRN Reason: Pain, moderate (4-7) Last Admin: 05/21/18 04:43 Dose: 2 mg Phenazopyridine HCl (Pyridium) 200 mg PO TIDPC [facility] Last Admin: 05/20/18 17:45 Dose: 200 mg - Labs Labs: 05/21/18 06:43 05/21/18 06:43 PT 14.6 SECONDS (9.7-12.2) H 05/16/18 07:27 INR 1.3 05/16/18 07:27 APTT 31 SECONDS (21-34) 05/16/18 07:27 - Additional Findings Additional findings: - Constitutional Appears: Well, Non-toxic, No Acute Distress - Head Exam Head Exam: ATRAUMATIC, NORMAL INSPECTION, NORMOCEPHALIC - Eye Exam Eye Exam: EOMI, Normal appearance - Respiratory Exam Respiratory Exam: Clear to Ausculation Bilateral, NORMAL BREATHING PATTERN - Cardiovascular Exam Cardiovascular Exam: REGULAR RHYTHM, +S1, +S2. absent: Murmur - GI/Abdominal Exam GI & Abdominal Exam: Soft, Tenderness, Normal Bowel Sounds. absent: Distended Additional comments: RLQ with mild tenderness to palpation IR Drain with 40cc purulent output over last 24 hrs - Neurological Exam Neurological Exam: Alert, Awake, Oriented x3 - Psychiatric Exam Psychiatric exam: Normal Affect, Normal Mood - Skin Skin Exam: Dry, Intact, Warm Additional comments: abdomen rash extending to thigh- erythema improved but rash now developing vesicles concerning for Meet[facility] Assessment and Plan - Assessment and Plan (Free Text) Assessment: 32 M with perforated appendicitis, s/p IR drainage Plan: NPO past MN Or tomorrow for Exploratory laparoscopy, possible open, washout, appendectomy, possible ileocecectomy Mag citrate x 1 dose in preparation for OR tomorrow Pre-operative labs tonight, No AM labs Will obtain consent PPN ordered for tomorrow 05/22 D5 1/2 NS with 20 mEq KCL for today (stop when PPN starts) Replete Mg, Phos, K (desired values of 2,3,4 respectively) IV antibiotics - cefepime, flagyl and diflucan Continue Benadryl PRN for pruritis Hydrocortisone cream PRN for pruritis Analgesics/Anti-emetics PRN Strict I's & O's Monitor Bowel function Encourage IS and ambulation Discussed with Dr. Nikita Addison PGY2 <NikitaDoni - Last Filed: 05/21/18 17:24> Objective - Vital Signs/Intake and Output Vital Signs (last 24 hours): Temp Pulse Resp BP Pulse Ox 99.0 F 82 20 107/69 95 05/21/18 15:00 05/21/18 15:00 05/21/18 15:00 05/21/18 15:00 05/21/18 15:00 Intake and Output: 05/21/18 05/21/18 06:59 18:59 Intake Total 2040 1050 Output Total 1015 220 Balance 1025 830 - Medications Medications: Current Medications Acetaminophen (Tylenol 325mg Tab) 650 mg PO Q6H PRN PRN Reason: Fever >100.4 F Last Admin: 05/13/18 16:45 Dose: 650 mg Diphenhydramine HCl (Benadryl) 50 mg IVP Q6H PRN PRN Reason: Itching / Pruritus Last Admin: 05/21/18 14:08 Dose: 50 mg Docusate Sodium (Colace) 100 mg PO BID [facility] Last Admin: 05/21/18 17:07 Dose: 100 mg Hydrocortisone (Cortizone 2.5%) 0 gm TOP BID PRN PRN Reason: Rash Last Admin: 05/18/18 03:14 Dose: 1 applic Potassium Chloride/Dextrose/Sod Cl (Potassium Chl 20 Meq In D5-1/2ns) 1,000 mls @ 130 mls/hr IV .Q7H42M [facility] Last Admin: 05/21/18 16:37 Dose: Not Given Fluconazole 100 mg/ (Miscellaneous) 50 mls @ 100 mls/hr IVPB DAILY [facility] PRN Reason: Protocol Last Admin: 05/21/18 11:10 Dose: 100 mls/hr Cefepime HCl (Maxipime Iv 2 Gm Premix) 2 gm in 100 mls @ 100 mls/hr IVPB Q8H [facility] PRN Reason: Protocol Stop: 05/26/18 14:31 Last Admin: 05/21/18 14:07 Dose: 100 mls/hr Metronidazole (Flagyl) 500 mg in 100 mls @ 100 mls/hr IVPB Q8H [facility] PRN Reason: Protocol Magnesium Citrate (Citrate Of Mag) 300 ml PO ONCE ONE Stop: 05/21/18 18:01 Last Admin: 05/21/18 17:07 Dose: 300 ml Morphine Sulfate (Morphine) 2 mg IVP Q2H PRN PRN Reason: Pain, moderate (4-7) Last Admin: 05/21/18 07:53 Dose: 2 mg - Labs Labs: 05/21/18 06:43 05/21/18 06:43 PT 14.6 SECONDS (9.7-12.2) H 05/16/18 07:27 INR 1.3 05/16/18 07:27 APTT 31 SECONDS (21-34) 05/16/18 07:27 Assessment and Plan - Assessment and Plan (Free Text) Plan: I personally saw and examined the patient with the resident staff and agree with the above assessment and plan. I personally reviewed the available diagnostic images and imaging reports. Repeat CT with new collections throughout abdomen. IR drain in place. New collections in right abd, pelvis, and midline. At this time patient has failed non-operative management with on- going elevated WBC and bacteremia without source control and reactions to aminoglycoside antibiotics. Does not have diffuse peritonitis or HD instability warranting urgent surgery. He is scheduled for Exploratory laparoscopy, possible laparotomy, abdominal washout and drain placement, possible appendectomy tomorrow at 930-10am. We discussed the risks and benefits of the operation, including but not limited to bowel injury, need for possible ileocolonic resection, and need for possible laparotomy. All questions were answered and he understands these risks and wishes to proceed. My plan would be to washout his abdomen and leave drains as needed for source control of the multiple collections . Given that it has now been approximately 11 days since his perforation, there may be significant inflammation surrounding the appendix/base of cecum and friability of bowel in general. If identification of the appendix requires significant bowel manipulation or it is not safe to staple across an identifiable appendix/cecum I would leave drains only and continue antibiotics post-op with the plan to perform interval appendectomy at later time once inflammation and infection have resolved. Discussion with patient was performed with use of electronic [employer] Tamar GOMEZ recs: Change to Maxipime, flagyl, diflucan for BS Abx coverage. Pending culture sensitivities. NPO at midnight.
[2018-05-21 08:39] LABS: BANDS 2 % (0-2); EOSINOPHIL 2 % (0-4); LYMPHOCYTE 4 % (20-40); MONOCYTE 3 % (0-10); NEUTROPHIL 89 % (50-75); PLATELET ESTIMATE NORMAL (NORMAL); TOTAL CELLS COUNTED 100
--- NOTE | 2018-05-21 08:42 | PCM.IRP ---
Chief Complaint: The CT scan of Calin Huang reviewed. The collection drained by the pigtail is almost resolved. There are 5 collections throughout the abdomen and pelvis. Most of these are not amenable to percutaneous drainage. Given the number collections, IR drainage is not the best approach for treatment. Please call to discuss. Dr. Kurtz. [phone] Objective - Vital Signs/Intake and Output Vital Signs (last 24 hours): Vital Signs - 24 hr 05/20/18 05/20/18 05/21/18 15:53 23:00 07:10 Temperature 98.2 F 99.1 F 99.6 F Pulse Rate 90 89 94 H Respiratory 20 20 20 Rate Blood Pressure 98/62 L 109/71 120/75 O2 Sat by Pulse 98 97 96 Oximetry Intake and Output (last 12 hours): Intake & Output 05/20/18 05/21/18 05/21/18 18:59 06:59 18:59 Intake Total 1030 2040 Output Total 575 1015 Balance 455 1025 Intake: Intake, IV Amount 1030 1040 Right Forearm 1030 1040 Oral 1000 Output: Drainage 25 15 Right Lower Abdomen 25 15 Urine 550 1000 Urine, Voided 550 1000 Other: # Voids Urine, Voided 1 - Medications Medications: Current Medications Acetaminophen (Tylenol 325mg Tab) 650 mg PO Q6H PRN PRN Reason: Fever >100.4 F Last Admin: 05/13/18 16:45 Dose: 650 mg Docusate Sodium (Colace) 100 mg PO BID [facility] Last Admin: 05/20/18 17:45 Dose: 100 mg Hydrocortisone (Cortizone 2.5%) 0 gm TOP BID PRN PRN Reason: Rash Last Admin: 05/18/18 03:14 Dose: 1 applic Potassium Chloride/Dextrose/Sod Cl (Potassium Chl 20 Meq In D5-1/2ns) 1,000 mls @ 130 mls/hr IV .Q7H42M [facility] Last Admin: 05/21/18 07:35 Dose: 130 mls/hr Fluconazole 100 mg/ (Miscellaneous) 50 mls @ 100 mls/hr IVPB DAILY [facility] PRN Reason: Protocol Last Admin: 05/20/18 09:37 Dose: 100 mls/hr Vancomycin HCl 1,250 mg/ (Sodium Chloride) 250 mls @ 166.667 mls/hr IVPB Q12H [facility] Last Admin: 05/20/18 21:22 Dose: 166.667 mls/hr Morphine Sulfate (Morphine) 2 mg IVP Q2H PRN PRN Reason: Pain, moderate (4-7) Last Admin: 05/21/18 07:53 Dose: 2 mg Phenazopyridine HCl (Pyridium) 200 mg PO TIDPC [facility] Last Admin: 05/20/18 17:45 Dose: 200 mg - Labs Labs (last 24 hours): Laboratory Results - last 24 hr 05/20/18 05/20/18 05/21/18 07:15 07:15 06:43 WBC 20.1 H RBC 4.54 Hgb 12.4 Hct 36.9 MCV 81.3 MCH 27.3 MCHC 33.6 RDW 14.2 Plt Count 467 H MPV 6.9 L Neut % (Auto) 88.3 H Lymph % (Auto) 5.0 L Carson % (Auto) 4.2 Eos % (Auto) 2.2 Baso % (Auto) 0.3 Neut # (Auto) 17.8 H Lymph # (Auto) 1.0 Carson # (Auto) 0.8 Eos # (Auto) 0.4 Baso # (Auto) 0.1 Neutrophils % (Manual) 84 H 89 H Band Neutrophils % 3 H 2 Lymphocytes % (Manual) 5 L 4 L Monocytes % (Manual) 7 3 Eosinophils % (Manual) 1 2 Platelet Estimate Normal Normal RBC Morphology Normal Polychromasia Slight Hypochromasia (manual) Slight Sodium 139 Potassium 3.8 Chloride 99 Carbon Dioxide 27 Anion Gap 16 BUN < 2 L Creatinine 0.5 L Est GFR ( Amer) > 60 Est GFR (Non-Af Amer) > 60 Random Glucose 129 H Calcium 7.3 L Phosphorus 3.5 Magnesium 2.1 Total Bilirubin 0.6 AST 29 ALT 35 Alkaline Phosphatase 68 Total Protein 5.5 L Albumin 2.8 L Globulin 2.8 Albumin/Globulin Ratio 1.0 05/21/18 06:43 WBC RBC Hgb Hct MCV MCH MCHC RDW Plt Count MPV Neut % (Auto) Lymph % (Auto) Carson % (Auto) Eos % (Auto) Baso % (Auto) Neut # (Auto) Lymph # (Auto) Carson # (Auto) Eos # (Auto) Baso # (Auto) Neutrophils % (Manual) Band Neutrophils % Lymphocytes % (Manual) Monocytes % (Manual) Eosinophils % (Manual) Platelet Estimate RBC Morphology Polychromasia Hypochromasia (manual) Sodium 132 Potassium 4.2 Chloride 98 Carbon Dioxide 29 Anion Gap 10 BUN 2 L Creatinine 0.6 L Est GFR ( Amer) > 60 Est GFR (Non-Af Amer) > 60 Random Glucose 120 H Calcium 7.6 L Phosphorus Magnesium Total Bilirubin 0.5 AST 44 ALT 43 Alkaline Phosphatase 96 Total Protein 5.7 L Albumin 2.8 L Globulin 2.9 Albumin/Globulin Ratio 0.9 L
[2018-05-21] MEDS: Fluconazole IV 200mg/100 ml NS 100 MG in Premixed IV 1 EA IVPB SCH (11:10)
--- NOTE | 2018-05-21 12:25 | CT ---
Date of service: 05/20/2018 PROCEDURE: CT Abdomen and Pelvis with contrast HISTORY: RLQ pain, f/u abscess COMPARISON: Images from CT guided abscess drainage procedure performed 05/17/2018; CT scan of the abdomen and pelvis dated 05/14/2018. TECHNIQUE: Contrast dose: 100 mL Visipaque 320 Radiation dose: Total exam DLP = 1358.4 mGy-cm. This CT exam was performed using one or more of the following dose reduction techniques: Automated exposure control, adjustment of the mA and/or kV according to patient size, and/or use of iterative reconstruction technique. FINDINGS: LOWER THORAX: New right lower and left lower lobe consolidations. New right middle lobe consolidation. New small left pleural effusion. LIVER: Hepatic steatosis. No gross lesion or ductal dilatation. GALLBLADDER AND BILE DUCTS: Unremarkable. PANCREAS: Unremarkable. No gross lesion or ductal dilatation. SPLEEN: Unremarkable. ADRENALS: Unremarkable. No mass. KIDNEYS AND URETERS: New areas of patchy disenhancement involving the right kidney. No hydronephrosis. No solid mass. VASCULATURE: Unremarkable. No aortic aneurysm. BOWEL: Thickening of the cecum and distal ileum, or reactive. No obstruction. No gross mural thickening. APPENDIX: Persistent appendiceal dilatation with appendicular with, wall thickening and periappendiceal stranding. PERITONEUM: Indwelling right lower quadrant percutaneous drainage catheter in place with tip in central abdomen, grossly unchanged in position from placement, with resolution of previously described periappendiceal abscess. Multiple new collections including 7.9 x 7.0 cm pre rectosigmoid pelvic collection which has a thin connection to a 4.7 x 3.0 cm anterior right lower quadrant collection located anterior to the sigmoid. Additional anterior retro umbilical collection measuring 9.9 x 3.4 cm. Two small lateral pericecal collections measuring 2.5 x 1.5 cm and 2.4 x 1.7 cm. Unremarkable. No free fluid. No free air. LYMPH NODES: Unremarkable. No enlarged lymph nodes. BLADDER: Unremarkable. REPRODUCTIVE: Unremarkable. BONES: No acute fracture. OTHER FINDINGS: None. IMPRESSION: Persistent appendicitis. Resolution of previously described periappendiceal abscess post percutaneous pigtail catheter drainage. Multiple new abdominal pelvic abscess ease as described above including a large anterior retro umbilical collection measuring 9.9 x 3.4 cm and large pre rectosigmoid pelvic collection measuring 7.9 x 7.0 cm. New areas of patchy disenhancement involving the right kidney for which acute pyelonephritis cannot be excluded. New small right middle, right lower and left lower lobe consolidations. Small left pleural effusion.
[2018-05-21] MEDS ORDERED: DiphenhydrAMINE 50 mg/ml Inj IVP PRN (13:48)
[2018-05-21] MEDS: Cefepime IV 2 gm in Dextrose 2 GM/100 ML BAG IVPB SCH ×2 (14:07→22:12)
[2018-05-21] MEDS: DiphenhydrAMINE 50 mg/ml Inj IVP PRN ×2 (14:08→22:23)
[2018-05-21] MEDS ORDERED: metroNIDAZOLE IV 500 mg/100 ml 500 MG/100 ML BAG IVPB SCH (15:00)
[2018-05-21] MEDS: metroNIDAZOLE IV 500 mg/100 ml 500 MG/100 ML BAG IVPB SCH (17:09)
[2018-05-21] MEDS ORDERED: Magnesium Citrate Oral SOL (300 ml) PO ONE (18:00)
--- NOTE | 2018-05-21 19:03 | CP.PCM.PN ---
Subjective - Date & Time of Evaluation Date of Evaluation: 05/21/18 Time of Evaluation: 02:35 - Subjective Subjective: dictated Objective - Vital Signs/Intake and Output Vital Signs (last 24 hours): Temp Pulse Resp BP Pulse Ox 99.0 F 82 20 107/69 95 05/21/18 15:00 05/21/18 15:00 05/21/18 15:00 05/21/18 15:00 05/21/18 15:00 Intake and Output: 05/21/18 05/22/18 18:59 06:59 Intake Total 1050 Output Total 220 Balance 830 - Medications Medications: Current Medications Acetaminophen (Tylenol 325mg Tab) 650 mg PO Q6H PRN PRN Reason: Fever >100.4 F Last Admin: 05/13/18 16:45 Dose: 650 mg Diphenhydramine HCl (Benadryl) 50 mg IVP Q6H PRN PRN Reason: Itching / Pruritus Last Admin: 05/21/18 14:08 Dose: 50 mg Docusate Sodium (Colace) 100 mg PO BID [facility] Last Admin: 05/21/18 17:07 Dose: 100 mg Hydrocortisone (Cortizone 2.5%) 0 gm TOP BID PRN PRN Reason: Rash Last Admin: 05/18/18 03:14 Dose: 1 applic Potassium Chloride/Dextrose/Sod Cl (Potassium Chl 20 Meq In D5-1/2ns) 1,000 mls @ 130 mls/hr IV .Q7H42M [facility] Last Admin: 05/21/18 16:37 Dose: Not Given Fluconazole 100 mg/ (Miscellaneous) 50 mls @ 100 mls/hr IVPB DAILY TYLER PRN Reason: Protocol Last Admin: 05/21/18 11:10 Dose: 100 mls/hr Cefepime HCl (Maxipime Iv 2 Gm Premix) 2 gm in 100 mls @ 100 mls/hr IVPB Q8H [facility]ER PRN Reason: Protocol Stop: 05/26/18 14:31 Last Admin: 05/21/18 14:07 Dose: 100 mls/hr Metronidazole (Flagyl) 500 mg in 100 mls @ 100 mls/hr IVPB Q8H TYLER PRN Reason: Protocol Last Admin: 05/21/18 17:09 Dose: 100 mls/hr Morphine Sulfate (Morphine) 2 mg IVP Q2H PRN PRN Reason: Pain, moderate (4-7) Last Admin: 05/21/18 07:53 Dose: 2 mg - Labs Labs: 05/21/18 06:43 05/21/18 06:43 PT 14.6 SECONDS (9.7-12.2) H 05/16/18 07:27 INR 1.3 05/16/18 07:27 APTT 31 SECONDS (21-34) 05/16/18 07:27
[2018-05-21 20:08] LABS: INR 1.3; PROTHROMBIN TIME 14.2 SECONDS (9.7-12.2)
[2018-05-21 22:09] LABS: BASO % 0.3 % (0.0-2.0); EOS # 0.6 K/uL (0.0-0.7); EOS % 3.2 % (0.0-4.0); LYMPH # 1.3 K/uL (1.0-4.3); LYMPH % 7.2 % (20.0-40.0); MEAN CELL VOLUME 81.2 fL (80.0-94.0); MEAN CORPUSCULAR HEMOGLOBIN 27.7 pg (27.0-31.0); MEAN PLATELET VOLUME 6.7 fL (7.2-11.7); MONO % 5.8 % (0.0-10.0); NEUT # 14.9 K/uL (1.8-7.0); NEUT % 83.5 % (50.0-75.0); PLATELET COUNT 498 K/uL (130-400); RBC 4.34 Mil/uL (4.40-5.90); RED CELL DISTRIBUTION WIDTH 13.8 % (11.5-14.5); WHITE BLOOD COUNT 17.9 K/uL (4.8-10.8)
[2018-05-21 22:26] LABS: ALT/SGPT 68 U/L (21-72); AST/SGOT 63 U/L (17-59); BLOOD UREA NITROGEN 3 mg/dL (9-20); CALCIUM 7.9 mg/dl (8.6-10.4); GFR AFRICAN-AMERICAN > 60; GFR NON-AFRICAN AMERICAN > 60
[2018-05-21 22:32] LABS: BANDS 7 % (0-2); EOSINOPHIL 1 % (0-4); LYMPHOCYTE 4 % (20-40); MONOCYTE 4 % (0-10); NEUTROPHIL 84 % (50-75); TOTAL CELLS COUNTED 100
[2018-05-21 22:33] LABS: PLATELET ESTIMATE SLIGHTLY INCREASED (NORMAL)
--- NOTE | 2018-05-22 00:48 | PN ---
DATE: 05/21/2018 SUBJECTIVE: I received a call from the resident that the patient was developing rash again, and he was placed on vancomycin. So, I went to see him and he also went for a CAT scan today and he had developed diffuse maculopapular rash now again on his abdomen and mostly more in the front than the back and now there are multiple drugs which were on board. We have been giving Diflucan and Pyridium because he was complaining of dysuria before and he is also on vancomycin and he was on Zosyn. Now I decided to change the antibiotics as he has developed multiple abscesses in the abdomen. We will place him on Maxipime as well as Flagyl at this time and continue Diflucan. We have added that and put him on diphenhydramine, Benadryl for the rash. OBJECTIVE: VITAL SIGNS: T-max is 99 today, pulse 82, blood pressure 107/69, respirations are 20. HEENT: Head is atraumatic, normocephalic. NECK: Supple. LUNGS: Clear. HEART: S1, S2 is regular. ABDOMEN: Remains with abscesses and redness. SKIN: Has maculopapular rash present. EXTREMITIES: Have no edema. LABORATORY DATA: White count is 20.1, hemoglobin 12.4, hematocrit 36.4, platelet count is 467. BUN is 2, creatinine 0.6. IMAGING STUDIES: CAT scan today was done which shows persistent appendicitis resolution of previously-described periappendiceal abscess, multiple new abdominal-pelvic abscesses as describe including a large anterior retro-umbilical collection measuring 9.9 x 3.4 cm and large rectosigmoid pelvic collection measuring 7.9 x 7. New areas of patchy disenhancement involving the right kidney, for which acute pyelonephritis cannot be excluded. New small right middle, right lower and left lower lobe consolidations, small left pleural effusion. ASSESSMENT AND PLAN: So, this patient is getting worse and I think he should get a surgery done, so he has a ruptured appendix and he is developing multiple abscesses. I relayed this massage to the internet marketing strategist to talk to the physician surgeon and at this time, we will continue with Maxipime, Flagyl and fluconazole and also get an x-ray in the morning to see what is happening with the chest and I do not think he is allergic to heparin and if it is needed for any prophylaxis, it can be used. I am going to call and they should be removed from the allergy list. His etiology of allergy is unclear because he is still having rash. Wallace Hamlin MD
[2018-05-22] MEDS: metroNIDAZOLE IV 500 mg/100 ml 500 MG/100 ML BAG IVPB SCH ×3 (01:20→16:14)
[2018-05-22] MEDS: DiphenhydrAMINE 50 mg/ml Inj IVP PRN ×2 (04:25→20:29)
[2018-05-22] MEDS: Cefepime IV 2 gm in Dextrose 2 GM/100 ML BAG IVPB SCH ×2 (06:30→21:43)
[2018-05-22] MEDS: Morphine 4 MG/ML VIAL IVP PRN ×3 (06:33→21:43)
[2018-05-22] MEDS: Potassium Ch 20mEq in D5-1/2NS 1,000 ML IV SCH (06:37)
[2018-05-22] MEDS ORDERED: Lidocaine 4% (Laryng-O-Jet) Kit MM ONE (09:38)
[2018-05-22] MEDS ORDERED: Bupivacaine 0.25% 20 ML INJ IJ ONE (09:38)
[2018-05-22] MEDS ORDERED: Lidocaine 1% Inj (20ml) INFIL ONE (09:49)
[2018-05-22] MEDS ORDERED: Lidocaine 1% 20 MG/2 ML PF AMP ONE (10:00)
[2018-05-22] MEDS ORDERED: Propofol 10 mg/ml Inj (20 ML) ONE (10:04)
[2018-05-22] MEDS ORDERED: Midazolam 2 MG/2 ML VIAL ONE (10:04)
[2018-05-22] MEDS ORDERED: Rocuronium 10 mg/ml (5 ml) ONE ×2 (10:05→11:34)
[2018-05-22] MEDS: Fluconazole IV 200mg/100 ml NS 100 MG in Premixed IV 1 EA IVPB SCH (10:55)
[2018-05-22] MEDS: Lidocaine 1% 20 MG/2 ML PF AMP ONE ×2 (11:29→11:33)
[2018-05-22] MEDS ORDERED: Bacitracin 50,000 UNIT in Sodium Chloride 0.9% Irrig 1,000 ML IR SCH (12:30)
[2018-05-22] MEDS ORDERED: Neostigmine Methylsulfate 3mg/3ml Syringe IV ONE (13:27)
--- NOTE | 2018-05-22 14:03 | PCM.SURG1 ---
Surgeon's Initial Post Op Note - Surgeon's Notes Surgeon: Dr. Shelton Archaeologist: Dr. Antonio PGY3, Sd ROLLE Type of Anesthesia: General Endo Pre-Operative Diagnosis: perforated appendicitis. intra-abdominal abscesses Operative Findings: see operative report Post-Operative Diagnosis: see operative report Operation Performed: exploratory laparoscopy. laparoscopic appendectomy. drainage/removal of abdominal abscesses. abdominal wash out Specimen/Specimens Removed: appendix. fibrinopurulent rind Estimated Blood Loss: EBL {In ML}: 50 Blood Products Given: N/A Drains Used: Merritt Date of Surgery/Procedure: 05/22/18 Time of Surgery/Procedure: 10:30
[2018-05-22] MEDS: HYDROmorphone 0.5 mg/0.5 ml ISec IVP PRN ×2 (14:23→16:08)
[2018-05-22] MEDS: Lactated Ringer's 1,000 ML IV SCH ×2 (17:31→21:50)
[2018-05-22] MEDS ORDERED: PPN #1 IV ONE (18:00)
[2018-05-22] MEDS ORDERED: Fat Emulsion 20% IV 500 ML IV SCH (18:00)
[2018-05-23] MEDS: metroNIDAZOLE IV 500 mg/100 ml 500 MG/100 ML BAG IVPB SCH ×3 (01:30→18:39)
[2018-05-23] MEDS: Lactated Ringer's 1,000 ML IV SCH ×2 (05:35→07:08)
[2018-05-23] MEDS ORDERED: PPN #2 IV ONE (06:15)
[2018-05-23] MEDS: Cefepime IV 2 gm in Dextrose 2 GM/100 ML BAG IVPB SCH ×3 (07:00→22:03)
[2018-05-23 07:29] LABS: BASO % 0.1 % (0.0-2.0); EOS # 0.6 K/uL (0.0-0.7); EOS % 3.3 % (0.0-4.0); HEMOGLOBIN 11.2 g/dL (12.0-18.0); LYMPH # 1.3 K/uL (1.0-4.3); LYMPH % 6.9 % (20.0-40.0); MEAN CELL VOLUME 81.6 fL (80.0-94.0); MEAN CORPUSCULAR HEMOGLOBIN 27.5 pg (27.0-31.0); MEAN CORPUSCULAR HGB CONC 33.7 g/dL (33.0-37.0); MEAN PLATELET VOLUME 6.4 fL (7.2-11.7); MONO # 1.5 K/uL (0.0-0.8); MONO % 8.2 % (0.0-10.0); NEUT # 14.7 K/uL (1.8-7.0); NEUT % 81.5 % (50.0-75.0); PLATELET COUNT 473 K/uL (130-400); RBC 4.06 Mil/uL (4.40-5.90); RED CELL DISTRIBUTION WIDTH 13.9 % (11.5-14.5)
[2018-05-23 07:44] LABS: ALB/GLOB RATIO 0.9 (1.0-2.1); ALBUMIN 2.4 g/dL (3.5-5.0); ALT/SGPT 43 U/L (21-72); AST/SGOT 16 U/L (17-59); BLOOD UREA NITROGEN 7 mg/dL (9-20); GFR AFRICAN-AMERICAN > 60; GFR NON-AFRICAN AMERICAN > 60
[2018-05-23 09:51] LABS: BANDS 10 % (0-2); EOSINOPHIL 4 % (0-4); LYMPHOCYTE 9 % (20-40); MONOCYTE 8 % (0-10); MYELOCYTE 1 % (0-0); NEUTROPHIL 68 % (50-75); PLATELET ESTIMATE SLIGHTLY INCREASED (NORMAL); TOTAL CELLS COUNTED 100
[2018-05-23] MEDS: Fluconazole IV 200mg/100 ml NS 100 MG in Premixed IV 1 EA IVPB SCH (10:30)
--- NOTE | 2018-05-23 13:53 | CP.PCM.PN ---
Subjective - Date & Time of Evaluation Date of Evaluation: 05/23/18 Time of Evaluation: 13:50 - Subjective Subjective: Surgery: Dr. Shelton Pt seen and examined. No acute events overnight. Pt states that he feels much better. Pain improved. Tolerating CLD. No N/V. No flatus/BM, but states that he would like to eat more. Objective - Vital Signs/Intake and Output Vital Signs (last 24 hours): Temp Pulse Resp BP Pulse Ox 98.2 F 77 20 98/64 L 96 05/23/18 07:00 05/23/18 07:00 05/23/18 07:00 05/23/18 07:00 05/23/18 07:00 Intake and Output: 05/23/18 05/23/18 06:59 18:59 Intake Total 1644 1704 Output Total 685 702 Balance 959 1002 - Medications Medications: Current Medications Acetaminophen (Tylenol 325mg Tab) 650 mg PO Q6H PRN PRN Reason: Fever >100.4 F Last Admin: 05/13/18 16:45 Dose: 650 mg Diphenhydramine HCl (Benadryl) 50 mg IVP Q6H PRN PRN Reason: Itching / Pruritus Last Admin: 05/22/18 20:29 Dose: 50 mg Docusate Sodium (Colace) 100 mg PO BID [facility] Last Admin: 05/23/18 10:28 Dose: 100 mg Heparin Sodium (Porcine) (Heparin) 5,000 units SC Q8H [facility] Hydrocortisone (Cortizone 2.5%) 0 gm TOP BID PRN PRN Reason: Rash Last Admin: 05/18/18 03:14 Dose: 1 applic Fluconazole 100 mg/ (Miscellaneous) 50 mls @ 100 mls/hr IVPB DAILY [facility] PRN Reason: Protocol Last Admin: 05/23/18 10:30 Dose: 100 mls/hr Cefepime HCl (Maxipime Iv 2 Gm Premix) 2 gm in 100 mls @ 100 mls/hr IVPB Q8H [facility] PRN Reason: Protocol Stop: 05/26/18 14:31 Last Admin: 05/23/18 07:00 Dose: 100 mls/hr Metronidazole (Flagyl) 500 mg in 100 mls @ 100 mls/hr IVPB Q8H [facility] PRN Reason: Protocol Last Admin: 05/23/18 08:31 Dose: 100 mls/hr Chromium/Copper/Manganese/Zinc 1 ml/ Magnesium Sulfate 6 meq / Potassium Phosphate 15 mmole / Amino Acids 1,007.4778 mls @ 83 mls/hr IV .Q12H9M ONE Stop: 05/23/18 18:23 Last Admin: 05/23/18 07:20 Dose: 83 mls/hr Fat Emulsion Intravenous (Intralipid 20%) 500 mls @ 83 mls/hr IV TTS@1800 [facility] Stop: 05/27/18 00:02 Last Admin: 05/22/18 17:33 Dose: 83 mls/hr Lactated Ringer's (Lactated Ringer's) 1,000 mls @ 130 mls/hr IV .Q7H42M [facility] Last Admin: 05/23/18 07:08 Dose: 130 mls/hr Multivitamins/Vitamin C 10 ml/Chromium/Copper/Manganese/Zinc 1 ml/ Magnesium Sulfate 6 meq/ Potassium Phosphate 15 mmole/ Sodium Chloride 35 meq/Calcium Gluconate 4.5 meq/Amino Acids 1,035.9052 mls @ 83 mls/hr IV .[id number] ONE Stop: 05/24/18 06:28 Chromium/Copper/Manganese/Zinc 1 ml/ Magnesium Sulfate 6 meq / Potassium Phosphate 15 mmole / Sodium Chloride 35 meq/Calcium Gluconate 4.5 meq/Amino Acids 1,025.9052 mls @ 83 mls/hr IV .[id number] ONE Stop: 05/24/18 18:36 Ketorolac Tromethamine (Toradol) 30 mg IVP Q6H [facility] Last Admin: 05/23/18 10:29 Dose: 30 mg Morphine Sulfate (Morphine) 2 mg IVP Q2H PRN PRN Reason: Pain, moderate (4-7) - Labs Labs: 05/23/18 07:20 05/23/18 07:20 PT 14.2 SECONDS (9.7-12.2) H 05/21/18 19:48 INR 1.3 05/21/18 19:48 APTT 48 SECONDS (21-34) H 05/21/18 19:48 - Constitutional Appears: Non-toxic, No Acute Distress - Head Exam Head Exam: ATRAUMATIC, NORMOCEPHALIC - Eye Exam Eye Exam: EOMI - ENT Exam ENT Exam: Mucous Membranes Moist - Neck Exam Neck Exam: Full ROM - Respiratory Exam Respiratory Exam: NORMAL BREATHING PATTERN. absent: Accessory Muscle Use, Respiratory Distress - GI/Abdominal Exam GI & Abdominal Exam: Soft, Tenderness (familia-incisional ). absent: Distended, Firm, Guarding, Rigid, Rebound Additional comments: kaylin x 2 - Extremities Exam Extremities Exam: Pedal Edema. absent: Calf Tenderness - Neurological Exam Neurological Exam: Alert, Awake, Oriented x3 - Skin Additional comments: rash improving Assessment and Plan - Assessment and Plan (Free Text) Assessment: 32M w. perforated abscess, s/p lap appy w. drainage of intra-abdominal abscess, POD#1 -will advance diet to FLD -continue to monitor drain output -R ABIEL: 50cc/12hr serosang -L ABIEL: 2cc/12hr -Hyponatremia: will d/c LR and start NS until pt is tolerating regular diet -Daily labs -F/U with ID recommendations -DVT ppx -d/w attending Zemaitis PGY4
[2018-05-23] MEDS: Sodium Chloride 0.9% 1,000 ML IV SCH (14:30)
--- NOTE | 2018-05-23 16:39 | PCM.OP ---
Operative Report - Operative Report Date of Surgery/Procedure: 05/22/18 Time of Surgery/Procedure: 10:00 Surgeon: Doni Shelton MD Billiard Table Mechanic: Zain Antonio DO (PGY3 resident) Anesthesia/Sedation: General endotracheal; 1% lidocaine + 0.25% Marcaine mix local anesthesia Pre-Operative Diagnosis: Intra-abdominal abscesses. Ruptured Apppendicitis s/p percutaneous drainage of intraabdominal abscess. Gram negative bacteremia Post-Operative Diagnosis: Intra-abdominal abscesses. Ruptured Apppendicitis s/ p percutaneous drainage of intraabdominal abscess. Gram negative bacteremia Indication for Surgery: This is a 32 year old male who presented 12 days ago, 48 hours prior to onset of abdominal symptoms and found to have ruptured appendicitis and fecolith with phlegmonous changes and evolving abscess. He was treated initially with IV antibiotics, serial CT imaging and eventual IR guided drainage formed asbcess. Initially repsonded well to non-operative treatment then developed adverse reaction to Antibiotics and depsite changes to broad sprecrum drugs continued to have persistent elevated WBC and bacteremia, without ever experiencing any hemodynamic instability. A repeat CTAP showed multiple new abscess cavities. Further details of HPI in clinical chart. He is taken to OR for eploratory laparoscopy and source control of intra-abdominal infection. Risks and benefits of laparoscopic possible open, exploration, appendectomy, drainage of abscess, abdominal washout and drain placement discussed as documented in clinical chart. All questions answered and informed consent signed prior to operation. Operative Findings: Mutiple contained pockets of seropurulent fluid located within omentum, interloop mesentery, pericecal, and pelvis. All collections irriagated, drained and abscess garcía removed. Previously placed percutanoues drainage catheter found to be intact, tracking through 4 areas of small bowel mesentery without any evidence of bowel compromise. Base of appendix identitified and fecolith removed. Appendix stapled distal to site of perforation. Marbin intact and hemostatic without leak at end of case. Dense fibrinous rind surrounding proximal cecum. Procedure/Operation Description: PROCEDURE PERFORMED: Exploratory laparoscopy, drainage of intra-abdominal abscess and abscess cavity resection x4; Partial omentectomy, appendectomy, and abdominal washout; Removal of previously placed percutanoues drainage catheter. Omental buttress of appendiceal staple line;. Intra-abdominal drain placement x2. DETAILS OF PROCEDURE: The patient was given a preoperative antibitoics per his inpatient schedule prior to incision. SCD boots were placed for DVT prophylaxis. An orogastric tube placed in order to empty the stomach after the induction of general anesthesia. Upper body warmer placed. Small wright was placed to decompress the bladder. Hair removal performed with shaver. Timeout was performed prior to incison. The abdomen was prepped and draped in sterile fashion. All skin incisions were made with an 11 blade knife after being pre-anesthetized with local anesthesia. Abdominal entry was gained using an 5mm optically viewing trocar with A 5mm 0-degree laparoscope placed in [facility] in the left upper quadrant. All layers of the abdominal wall were seen and peritoneal entry directly visualized. The abdomen was then insufflated with C02 pneumoperitoneum to 15mmhg. A 5mm 0- degree laparoscope was then inserted and the abdomen was generally inspected. There were no signs of injury from initial entry. There was a large amount of omentum stuck to the anterior abdominal wall, centered directly over the site of entry from the percutaneous drainage catheter. Two additional working ports were then placed in the left hemiabdomen to faciliate running the bowel later on and for wide exploration. A 12mm port was placed in left lateral mid- abdomen and a 5mm port placed in left iliac fossa, under direct vision. A 5mm 30 degree laparoscope was then inserted and used for the remainder of case. The abdomen was generally insepected. Omentum was taken down bluntly off the abdominal wall and incised with electro cautery to release it from the perc catheter where fluid filled cavity was encountered and drained. A portion of omentum that appeared grossly infected and forming the wall of this abscess was resected with bipolar energy, in total a piece measuring 2 inches x 2 inches. We followed the catheter down and broke up several interloop adhesions and collections using blunt dissection and hydrodissection with suction dry cell assembly supervisor. Fibrinous well formed abscess wall material was collected and removed at end of case. We ran the bowel and to follow the path of the perc cathter and finally came to find the end by identifying the coiled tip. The cathter had travsered the abdominal wall, omentum, small bowel mesentery in 4 places close to bowel wall but without eveidence of bowel injury or compromise. The catheter was uncoiled at the skin and removed under direct vison through its entire path. Again the bowel was insepcted and no injury noted. We then further mobilized interloop small bowel adhesions for an additional 30-45minutes in order to identify the appedix and base of cecum. This was done as above with blunt and hydrodissection, sweeping the small intestine out of the pelvis The tip of the appendix was adherent to the base of small bowel mesentery and mobilized back to as close to the base of the appendix that I felt was safe. We did locate the site of perforation and removed the fecolith noted on pre-op CT. The right sided peritoneal attachments were mobilized using bipolar energy. Fold of treves was identified and adhesions to the mesoappendix bluntly taken down. Bipolar energy used to ligate and divide mesoappendix and pedicle. At this time I asked my senior marketing data analyst, Dr. Urbina, to come into the room to confirm appropriate anatomy given the severity of inflammed and friable tissue. We both agreed that we had approached the proximal most portion of appendix safe to transect, as close to the cecum that could be otained without causing iatrogenic injury with further dissection. The base of the appendix was then transected with a 45 mm blue load linear stapler. Staple line inspected and intact. The specimen was placed in an Endocatch bag, along with partial omentum and several pieces of intact abscess wall material and removed from the 12mm trocar. The trocar reinserted and we next turned our attention to draining the pelvic fluid collections. An additional 5mm port was placed under direct vision in the right suprapubic region and assistant professor of surgery used as retraction port. The sigmoid colon adherent to anterior pelvic wall, bluntly dissected off and abscess cavity drained and wall excised. From the left pelvis were further bluntly mobilzed sigmoid and encountered a deep pelvic collection as seen on pre-op CT sca. The wall was well developed. Seropurulent material suctions and irrigated with antibiotics irrigation and fibrinous debris of abscess wall removed intact. All debris was then placed in an endocatch bag and removed through the 12mm port. The abdomen was enerally irrigated with antibiotic saline irrigation, especially in pelvis, right gutter, above right liver and splenic flexures until clear fluid aspirated. The appendiceal staple line was again carefully inspected and appeared hemostatic. Omentum was then draped over the suture line and a-top the small intestine, draping the viscera. Two 19 latvian round ABIEL drains were placed under direct visions. One placed in deep pelvis, brought out throught right suprapubic port; second drain placed across upper abdomen coursing along right gutter with tip near adjacent to resection site, and brought out through left upper port site. Both drains were secured to the skin with 2-0 nylon. Instruments and ports were then removed under direct vision and the abdomen was then desufflated. Remained of local anesthesia injected to sites. 0-vycrl suture in a figure of eight fashion x2 was used to close the left mid-abdominal port site fasia. The skin was closed with 4-0 monocryl and dermabond. All sponge, needle and instrument counts were correct. The patient was extubated in the operating room, and taken to the recovery room in stable condition. Estimated Blood Loss: 50mL Drains: 19Fr round ABIEL drains x2; Supra-pubic drain - deep pelvis. Left upper abdominal drain - tracking across upper abdomen and right paracolic gutter Complications: none Specimen: Appendix. Fecolith. Abscess cavity wall. Partial omentectomy specimen Discharge & Condition: Extubated in OR and stable to PACU. Admit back to floor.
[2018-05-23] MEDS ORDERED: PPN #3 IV ONE (18:00)
[2018-05-24] MEDS: Sodium Chloride 0.9% 1,000 ML IV SCH ×5 (01:06→20:00)
[2018-05-24 01:33] VITALS: RESP 20
[2018-05-24] MEDS: Cefepime IV 2 gm in Dextrose 2 GM/100 ML BAG IVPB SCH ×3 (05:41→21:44)
[2018-05-24] MEDS ORDERED: PPN #4 IV ONE (06:15)
[2018-05-24 06:55] LABS: BASO # 0.1 K/uL (0.0-0.2); BASO % 0.8 % (0.0-2.0); EOS # 0.7 K/uL (0.0-0.7); EOS % 5.1 % (0.0-4.0); LYMPH # 1.5 K/uL (1.0-4.3); LYMPH % 11.6 % (20.0-40.0); MEAN CELL VOLUME 82.1 fL (80.0-94.0); MEAN CORPUSCULAR HEMOGLOBIN 27.3 pg (27.0-31.0); MEAN CORPUSCULAR HGB CONC 33.3 g/dL (33.0-37.0); MEAN PLATELET VOLUME 6.5 fL (7.2-11.7); MONO # 1.2 K/uL (0.0-0.8); MONO % 9.2 % (0.0-10.0); NEUT # 9.5 K/uL (1.8-7.0); NEUT % 73.3 % (50.0-75.0); RBC 3.64 Mil/uL (4.40-5.90); RED CELL DISTRIBUTION WIDTH 13.9 % (11.5-14.5)
--- NOTE | 2018-05-24 07:28 | CP.PCM.PN ---
<Zain Antonio - Last Filed: 05/24/18 07:38> Subjective - Date & Time of Evaluation Date of Evaluation: 05/24/18 Time of Evaluation: 06:30 - Subjective Subjective: Patient seen and examined. Reports feeling better. Denies vomiting. States abdominal pain is much improved. No longer has dysuria. Requesting his diet be advanced. Right ABIEL drain 5cc/24 serosanguinous, Left ABIEL 70cc/24hr serosanguinous. Objective - Vital Signs/Intake and Output Vital Signs (last 24 hours): Temp Pulse Resp BP Pulse Ox 98.6 F 73 20 109/66 96 05/23/18 23:25 05/24/18 06:03 05/23/18 23:25 05/24/18 06:03 05/23/18 23:25 Intake and Output: 05/24/18 05/24/18 06:59 18:59 Intake Total 1049 Output Total 1115 Balance -66 - Medications Medications: Current Medications Acetaminophen (Tylenol 325mg Tab) 650 mg PO Q6H PRN PRN Reason: Fever >100.4 F Last Admin: 05/13/18 16:45 Dose: 650 mg Diphenhydramine HCl (Benadryl) 50 mg IVP Q6H PRN PRN Reason: Itching / Pruritus Last Admin: 05/22/18 20:29 Dose: 50 mg Docusate Sodium (Colace) 100 mg PO BID [facility] Last Admin: 05/23/18 18:39 Dose: 100 mg Heparin Sodium (Porcine) (Heparin) 5,000 units SC Q8H [facility] Last Admin: 05/24/18 03:14 Dose: 5,000 units Hydrocortisone (Cortizone 2.5%) 0 gm TOP BID PRN PRN Reason: Rash Last Admin: 05/18/18 03:14 Dose: 1 applic Fluconazole 100 mg/ (Miscellaneous) 50 mls @ 100 mls/hr IVPB DAILY [facility] PRN Reason: Protocol Last Admin: 05/23/18 10:30 Dose: 100 mls/hr Cefepime HCl (Maxipime Iv 2 Gm Premix) 2 gm in 100 mls @ 100 mls/hr IVPB Q8H [facility] PRN Reason: Protocol Stop: 05/26/18 14:31 Last Admin: 05/24/18 05:41 Dose: 100 mls/hr Metronidazole (Flagyl) 500 mg in 100 mls @ 100 mls/hr IVPB Q8H [facility] PRN Reason: Protocol Last Admin: 05/24/18 00:00 Dose: 100 mls/hr Sodium Chloride (Sodium Chloride 0.9%) 1,000 mls @ 100 mls/hr IV .Q10H [facility] Last Admin: 05/24/18 03:11 Dose: 100 mls/hr Ketorolac Tromethamine (Toradol) 30 mg IVP Q6H [facility] Stop: 05/24/18 16:01 Last Admin: 05/24/18 03:09 Dose: 30 mg Morphine Sulfate (Morphine) 2 mg IVP Q2H PRN PRN Reason: Pain, moderate (4-7) Last Admin: 05/24/18 06:06 Dose: 2 mg - Labs Labs: 05/24/18 06:44 05/23/18 07:20 PT 14.2 SECONDS (9.7-12.2) H 05/21/18 19:48 INR 1.3 05/21/18 19:48 APTT 48 SECONDS (21-34) H 05/21/18 19:48 - Constitutional Appears: No Acute Distress - Head Exam Head Exam: NORMOCEPHALIC - Eye Exam Eye Exam: Normal appearance - ENT Exam ENT Exam: Mucous Membranes Moist - Respiratory Exam Respiratory Exam: NORMAL BREATHING PATTERN - Cardiovascular Exam Cardiovascular Exam: +S1, +S2 - GI/Abdominal Exam GI & Abdominal Exam: Soft, Tenderness Additional comments: tender along surgicla incision sites Rash improved - Neurological Exam Neurological Exam: Alert, Awake, Oriented x3 - Skin Skin Exam: Dry, Warm Assessment and Plan - Assessment and Plan (Free Text) Assessment: 32M w. perforated abscess, s/p lap appy w. drainage of intra-abdominal abscess, POD#2 Plan: -will advance diet to low residue diet -continue to monitor drain output -If right ABIEL continous with scant output will remove drain at 1900 today -Hyponatremia: will d/c IVF -Daily labs -Will speak with ID regarding transition to PO ABx, recs appreciated -DVT ppx -Stool softeners -Encourage ambulation -D/w Dr. Nikita Avilez PGY3 <Doni Shelton - Last Filed: 05/25/18 10:52> Objective - Vital Signs/Intake and Output Vital Signs (last 24 hours): Temp Pulse Resp BP Pulse Ox 97.8 F 68 20 116/74 98 05/25/18 07:00 05/25/18 07:00 05/25/18 07:00 05/25/18 07:00 05/25/18 07:00 Intake and Output: 05/25/18 05/25/18 06:59 18:59 Intake Total 1280 Output Total 460 Balance 820 - Medications Medications: Current Medications Benzocaine/Menthol (Cepacol Sore Throat) 1 adelfo MT Q2H PRN PRN Reason: Sore Throat Last Admin: 05/24/18 14:04 Dose: 1 adelfo Diphenhydramine HCl (Benadryl) 50 mg IVP Q6H PRN PRN Reason: Itching / Pruritus Last Admin: 05/24/18 21:50 Dose: 50 mg Docusate Sodium (Colace) 100 mg PO BID [facility] Last Admin: 05/24/18 18:12 Dose: 100 mg Heparin Sodium (Porcine) (Heparin) 5,000 units SC Q8H [facility] Last Admin: 05/25/18 09:23 Dose: 5,000 units Hydrocortisone (Cortizone 2.5%) 0 gm TOP BID PRN PRN Reason: Rash Last Admin: 05/18/18 03:14 Dose: 1 applic Fluconazole 100 mg/ (Miscellaneous) 50 mls @ 100 mls/hr IVPB DAILY [facility] PRN Reason: Protocol Last Admin: 05/24/18 10:23 Dose: 100 mls/hr Cefepime HCl (Maxipime Iv 2 Gm Premix) 2 gm in 100 mls @ 100 mls/hr IVPB Q8H [facility] PRN Reason: Protocol Stop: 05/26/18 14:31 Last Admin: 05/25/18 05:48 Dose: 100 mls/hr Metronidazole (Flagyl) 500 mg in 100 mls @ 100 mls/hr IVPB Q8H [facility] PRN Reason: Protocol Last Admin: 05/25/18 09:20 Dose: 100 mls/hr Sodium Chloride (Sodium Chloride 0.9%) 1,000 mls @ 100 mls/hr IV .Q10H [facility] Last Admin: 05/25/18 05:55 Dose: 100 mls/hr Oxycodone/Acetaminophen (Percocet 5/325 Mg Tab) 1 tab PO Q4H PRN PRN Reason: Pain, moderate (4-7) Stop: 05/27/18 07:31 Last Admin: 05/25/18 02:05 Dose: 1 tab Oxycodone/Acetaminophen (Percocet 5/325 Mg Tab) 2 tab PO Q4H PRN PRN Reason: Pain, severe (8-10) Stop: 05/27/18 07:31 Last Admin: 05/25/18 08:46 Dose: 2 tab - Labs Labs: 05/25/18 06:21 05/25/18 06:21 PT 14.2 SECONDS (9.7-12.2) H 05/21/18 19:48 INR 1.3 05/21/18 19:48 APTT 48 SECONDS (21-34) H 05/21/18 19:48 Assessment and Plan - Assessment and Plan (Free Text) Plan: Seen and examined with resident staff. Agree with above. Continues to improve. Low abd ABIEL out today. ADAT. Transition to PO Abx per ID recs. Dispo home tomorrow if WBC continues to downtrend.
[2018-05-24 07:34] LABS: ALB/GLOB RATIO 0.8 (1.0-2.1); ALBUMIN 2.4 g/dL (3.5-5.0); ALT/SGPT 42 U/L (21-72); AST/SGOT 33 U/L (17-59); BLOOD UREA NITROGEN 7 mg/dL (9-20); CALCIUM 7.7 mg/dl (8.6-10.4); GFR AFRICAN-AMERICAN > 60; GFR NON-AFRICAN AMERICAN > 60
[2018-05-24] MEDS: metroNIDAZOLE IV 500 mg/100 ml 500 MG/100 ML BAG IVPB SCH ×3 (08:12→16:16)
[2018-05-24] MEDS: Fluconazole IV 200mg/100 ml NS 100 MG in Premixed IV 1 EA IVPB SCH (10:23)
[2018-05-24] MEDS: Benzocaine/Menthol (Cepacol) Lozenge MT PRN ×2 (11:16→14:04)
[2018-05-24] MEDS: DiphenhydrAMINE 50 mg/ml Inj IVP PRN ×2 (11:55→21:50)
[2018-05-24] MEDS: Oxycodone/Acetaminophen 5/325 mg Tab PO PRN ×4 (15:59→21:51)
--- NOTE | 2018-05-24 20:17 | CP.PCM.PN ---
Subjective - Date & Time of Evaluation Date of Evaluation: 05/24/18 Time of Evaluation: 03:00 - Subjective Subjective: dictated Objective - Vital Signs/Intake and Output Vital Signs (last 24 hours): Temp Pulse Resp BP Pulse Ox 98.3 F 84 20 116/75 98 05/24/18 16:15 05/24/18 16:15 05/24/18 16:15 05/24/18 16:15 05/24/18 16:15 Intake and Output: 05/24/18 05/25/18 18:59 06:59 Intake Total 1100 Output Total 1115 Balance -15 - Medications Medications: Current Medications Benzocaine/Menthol (Cepacol Sore Throat) 1 adelfo MT Q2H PRN PRN Reason: Sore Throat Last Admin: 05/24/18 14:04 Dose: 1 adelfo Diphenhydramine HCl (Benadryl) 50 mg IVP Q6H PRN PRN Reason: Itching / Pruritus Last Admin: 05/24/18 11:55 Dose: 50 mg Docusate Sodium (Colace) 100 mg PO BID [facility] Last Admin: 05/24/18 18:12 Dose: 100 mg Heparin Sodium (Porcine) (Heparin) 5,000 units SC Q8H [facility] Last Admin: 05/24/18 18:12 Dose: 5,000 units Hydrocortisone (Cortizone 2.5%) 0 gm TOP BID PRN PRN Reason: Rash Last Admin: 05/18/18 03:14 Dose: 1 applic Fluconazole 100 mg/ (Miscellaneous) 50 mls @ 100 mls/hr IVPB DAILY [facility] PRN Reason: Protocol Last Admin: 05/24/18 10:23 Dose: 100 mls/hr Cefepime HCl (Maxipime Iv 2 Gm Premix) 2 gm in 100 mls @ 100 mls/hr IVPB Q8H [facility] PRN Reason: Protocol Stop: 05/26/18 14:31 Last Admin: 05/24/18 14:03 Dose: 100 mls/hr Metronidazole (Flagyl) 500 mg in 100 mls @ 100 mls/hr IVPB Q8H [facility] PRN Reason: Protocol Last Admin: 05/24/18 16:16 Dose: 100 mls/hr Sodium Chloride (Sodium Chloride 0.9%) 1,000 mls @ 100 mls/hr IV .Q10H [facility] Last Admin: 05/24/18 20:00 Dose: Not Given Oxycodone/Acetaminophen (Percocet 5/325 Mg Tab) 1 tab PO Q4H PRN PRN Reason: Pain, moderate (4-7) Stop: 05/27/18 07:31 Last Admin: 05/24/18 18:19 Dose: 1 tab Oxycodone/Acetaminophen (Percocet 5/325 Mg Tab) 2 tab PO Q4H PRN PRN Reason: Pain, severe (8-10) Stop: 05/27/18 07:31 Last Admin: 05/24/18 19:55 Dose: 2 tab - Labs Labs: 05/24/18 06:44 05/24/18 06:44 PT 14.2 SECONDS (9.7-12.2) H 05/21/18 19:48 INR 1.3 05/21/18 19:48 APTT 48 SECONDS (21-34) H 05/21/18 19:48
[2018-05-25] MEDS: metroNIDAZOLE IV 500 mg/100 ml 500 MG/100 ML BAG IVPB SCH ×2 (00:25→09:20)
[2018-05-25] MEDS: Oxycodone/Acetaminophen 5/325 mg Tab PO PRN ×3 (02:05→16:05)
--- NOTE | 2018-05-25 02:06 | PN ---
DATE: 05/24/2018 SUBJECTIVE: I have been discussing this patient with the sales vice president, and I went to see him today. Yesterday, he was in the bathroom when I tried to go and see him. He went for surgery. The following day, the patient's T-max was 98.3, pulse 84, blood pressure 116/75, respirations are 20. He denies any dysuria now. His rash has improved. He does complain of some cough. He is supposed to use incentive spirometry, and I have suggested in that. His abdominal pain has improved. He does have a drain at this time. OBJECTIVE: VITAL SIGNS: T-max is 98.3, pulse 84, blood pressure 116/75, respirations are 20. HEENT: Head is atraumatic, normocephalic. He is alert, awake. Tongue is moist. NECK: Supple. LUNGS: Clear. HEART: S1, S2 is regular. ABDOMEN: Soft, postop tenderness. No guarding, no rigidity present. EXTREMITIES: Have no edema. White count is 13, hemoglobin 10, hematocrit 29.9, and platelet count is 450. His chemistry shows BUN is 7, creatinine 0.6 which is unremarkable. Calcium is little low and liver enzymes are unremarkable. His septic workup shows body fluid that was from the 12th which we had E. Coli and his white count is coming down. He did have a ruptured appendix, underwent surgery, had multiple abscesses in the abdomen. Suggest at this time to continue with the IV antibiotics, and once the drains are removed, then probably he can go home on Vantin 200 mg b.i.d. for 10 days and also with Flagyl 500 mg every 8 hours, he is only on cefepime at this time. He can go on Vantin for 10 days 200 mg b.i.d. and that should be sufficient to hold him. I would have given him Flagyl also but I am not sure if he is getting it now, but can go home on Vantin once he is stable. He should improve. Wallace Hamlin MD
[2018-05-25] MEDS: Cefepime IV 2 gm in Dextrose 2 GM/100 ML BAG IVPB SCH ×2 (05:48→14:00)
[2018-05-25] MEDS: Sodium Chloride 0.9% 1,000 ML IV SCH (05:55)
[2018-05-25 06:35] LABS: BASO # 0.1 K/uL (0.0-0.2); BASO % 0.9 % (0.0-2.0); EOS # 0.6 K/uL (0.0-0.7); EOS % 5.4 % (0.0-4.0); HEMOGLOBIN 9.8 g/dL (12.0-18.0); LYMPH % 16.4 % (20.0-40.0); MEAN CELL VOLUME 81.4 fL (80.0-94.0); MEAN CORPUSCULAR HEMOGLOBIN 26.8 pg (27.0-31.0); MEAN CORPUSCULAR HGB CONC 32.9 g/dL (33.0-37.0); MEAN PLATELET VOLUME 6.4 fL (7.2-11.7); MONO # 1.1 K/uL (0.0-0.8); MONO % 9.1 % (0.0-10.0); NEUT # 8.2 K/uL (1.8-7.0); NEUT % 68.2 % (50.0-75.0); RBC 3.65 Mil/uL (4.40-5.90); RED CELL DISTRIBUTION WIDTH 13.7 % (11.5-14.5)
[2018-05-25 06:59] LABS: ALB/GLOB RATIO 0.8 (1.0-2.1); ALBUMIN 2.5 g/dL (3.5-5.0); ALT/SGPT 48 U/L (21-72); AST/SGOT 45 U/L (17-59); BLOOD UREA NITROGEN 4 mg/dL (9-20); CALCIUM 7.7 mg/dl (8.6-10.4); GFR AFRICAN-AMERICAN > 60; GFR NON-AFRICAN AMERICAN > 60
--- NOTE | 2018-05-25 07:44 | CP.PCM.PN ---
<Zain Antonio - Last Filed: 05/25/18 07:46> Subjective - Date & Time of Evaluation Date of Evaluation: 05/25/18 Time of Evaluation: 06:30 - Subjective Subjective: Patient seen and examined. No acute events over night. Patient reports feeling much better. Tolerating diet. Denies dysuria. R ABIEL drain 25cc/24 hr serosanguinous. Objective - Vital Signs/Intake and Output Vital Signs (last 24 hours): Temp Pulse Resp BP Pulse Ox 98.6 F 78 20 106/72 96 05/24/18 23:25 05/24/18 23:25 05/24/18 23:25 05/24/18 23:25 05/24/18 23:25 Intake and Output: 05/25/18 05/25/18 06:59 18:59 Intake Total 1280 Output Total 460 Balance 820 - Medications Medications: Current Medications Benzocaine/Menthol (Cepacol Sore Throat) 1 adelfo MT Q2H PRN PRN Reason: Sore Throat Last Admin: 05/24/18 14:04 Dose: 1 adelfo Diphenhydramine HCl (Benadryl) 50 mg IVP Q6H PRN PRN Reason: Itching / Pruritus Last Admin: 05/24/18 21:50 Dose: 50 mg Docusate Sodium (Colace) 100 mg PO BID [facility] Last Admin: 05/24/18 18:12 Dose: 100 mg Heparin Sodium (Porcine) (Heparin) 5,000 units SC Q8H [facility] Last Admin: 05/25/18 02:04 Dose: 5,000 units Hydrocortisone (Cortizone 2.5%) 0 gm TOP BID PRN PRN Reason: Rash Last Admin: 05/18/18 03:14 Dose: 1 applic Fluconazole 100 mg/ (Miscellaneous) 50 mls @ 100 mls/hr IVPB DAILY [facility] PRN Reason: Protocol Last Admin: 05/24/18 10:23 Dose: 100 mls/hr Cefepime HCl (Maxipime Iv 2 Gm Premix) 2 gm in 100 mls @ 100 mls/hr IVPB Q8H [facility] PRN Reason: Protocol Stop: 05/26/18 14:31 Last Admin: 05/25/18 05:48 Dose: 100 mls/hr Metronidazole (Flagyl) 500 mg in 100 mls @ 100 mls/hr IVPB Q8H [facility] PRN Reason: Protocol Last Admin: 05/25/18 00:25 Dose: 100 mls/hr Sodium Chloride (Sodium Chloride 0.9%) 1,000 mls @ 100 mls/hr IV .Q10H [facility] Last Admin: 05/25/18 05:55 Dose: 100 mls/hr Oxycodone/Acetaminophen (Percocet 5/325 Mg Tab) 1 tab PO Q4H PRN PRN Reason: Pain, moderate (4-7) Stop: 05/27/18 07:31 Last Admin: 05/25/18 02:05 Dose: 1 tab Oxycodone/Acetaminophen (Percocet 5/325 Mg Tab) 2 tab PO Q4H PRN PRN Reason: Pain, severe (8-10) Stop: 05/27/18 07:31 Last Admin: 05/24/18 19:55 Dose: 2 tab - Labs Labs: 05/25/18 06:21 05/25/18 06:21 PT 14.2 SECONDS (9.7-12.2) H 05/21/18 19:48 INR 1.3 05/21/18 19:48 APTT 48 SECONDS (21-34) H 05/21/18 19:48 - Constitutional Appears: No Acute Distress - Head Exam Head Exam: NORMOCEPHALIC - Eye Exam Eye Exam: Normal appearance - ENT Exam ENT Exam: Mucous Membranes Moist - Respiratory Exam Respiratory Exam: NORMAL BREATHING PATTERN - Cardiovascular Exam Cardiovascular Exam: +S1, +S2 - GI/Abdominal Exam GI & Abdominal Exam: Soft - Neurological Exam Neurological Exam: Alert, Awake, Oriented x3 - Psychiatric Exam Psychiatric exam: Normal Mood - Skin Skin Exam: Dry, Intact, Warm Assessment and Plan - Assessment and Plan (Free Text) Assessment: 32M w. perforated abscess, s/p lap appy w. drainage of intra-abdominal abscess, POD#3 Plan: -low residue diet -continue to monitor drain output -Leukocytosis down trending -PO ABx prior to d/c -DVT ppx -Stool softeners -Encourage ambulation -F/u with Dr. Mueller in [facility] -D/w Dr. Nikita Avilez PGY3 <Doni Shelton - Last Filed: 05/25/18 11:11> Objective - Vital Signs/Intake and Output Vital Signs (last 24 hours): Temp Pulse Resp BP Pulse Ox 97.8 F 68 20 116/74 98 05/25/18 07:00 05/25/18 07:00 05/25/18 07:00 05/25/18 07:00 05/25/18 07:00 Intake and Output: 05/25/18 05/25/18 06:59 18:59 Intake Total 1280 Output Total 460 Balance 820 - Medications Medications: Current Medications Benzocaine/Menthol (Cepacol Sore Throat) 1 adelfo MT Q2H PRN PRN Reason: Sore Throat Last Admin: 05/24/18 14:04 Dose: 1 adelfo Diphenhydramine HCl (Benadryl) 50 mg IVP Q6H PRN PRN Reason: Itching / Pruritus Last Admin: 05/24/18 21:50 Dose: 50 mg Docusate Sodium (Colace) 100 mg PO BID [facility] Last Admin: 05/24/18 18:12 Dose: 100 mg Heparin Sodium (Porcine) (Heparin) 5,000 units SC Q8H [facility] Last Admin: 05/25/18 09:23 Dose: 5,000 units Hydrocortisone (Cortizone 2.5%) 0 gm TOP BID PRN PRN Reason: Rash Last Admin: 05/18/18 03:14 Dose: 1 applic Fluconazole 100 mg/ (Miscellaneous) 50 mls @ 100 mls/hr IVPB DAILY [facility] PRN Reason: Protocol Last Admin: 05/24/18 10:23 Dose: 100 mls/hr Cefepime HCl (Maxipime Iv 2 Gm Premix) 2 gm in 100 mls @ 100 mls/hr IVPB Q8H [facility] PRN Reason: Protocol Stop: 05/26/18 14:31 Last Admin: 05/25/18 05:48 Dose: 100 mls/hr Metronidazole (Flagyl) 500 mg in 100 mls @ 100 mls/hr IVPB Q8H [facility] PRN Reason: Protocol Last Admin: 05/25/18 09:20 Dose: 100 mls/hr Sodium Chloride (Sodium Chloride 0.9%) 1,000 mls @ 100 mls/hr IV .Q10H [facility] Last Admin: 05/25/18 05:55 Dose: 100 mls/hr Oxycodone/Acetaminophen (Percocet 5/325 Mg Tab) 1 tab PO Q4H PRN PRN Reason: Pain, moderate (4-7) Stop: 05/27/18 07:31 Last Admin: 05/25/18 02:05 Dose: 1 tab Oxycodone/Acetaminophen (Percocet 5/325 Mg Tab) 2 tab PO Q4H PRN PRN Reason: Pain, severe (8-10) Stop: 05/27/18 07:31 Last Admin: 05/25/18 08:46 Dose: 2 tab - Labs Labs: 05/25/18 06:21 05/25/18 06:21 PT 14.2 SECONDS (9.7-12.2) H 05/21/18 19:48 INR 1.3 05/21/18 19:48 APTT 48 SECONDS (21-34) H 05/21/18 19:48 Assessment and Plan - Assessment and Plan (Free Text) Plan: Continues to improve clinically and WBC near normal. Ok for discharge home today on low residue diet, PO abx per ID recommendations. Left ABIEL drain to be removed prior to discharge. Follow up in clinic 2-4 weeks.
[2018-05-25 08:32] VITALS: BP 116/74; PULSE 68; TEMP 97.8; O2SAT 98
--- NOTE | 2018-05-25 08:38 | CP.PCM.DIS ---
Provider - Provider Date of Admission: 05/12/18 10:16 Attending physician: Doni Shelton MD Time Spent in preparation of Discharge (in minutes): 30 Hospital Course - Lab Results Lab Results: Micro Results 05/18/18 19:19 Urine,Clean Catch Urine Culture - Final No Growth (<1,000 CFU/ML) 05/17/18 14:26 Body Fluid - Abscess Gram Stain - Final 05/17/18 14:26 Body Fluid - Abscess Body Fluid Culture - Final Escherichia Coli 05/12/18 21:00 Blood-Venous Blood Culture - Final NO GROWTH AFTER 5 DAYS 05/12/18 21:00 Blood-Venous Gram Stain - Final TEST NOT PERFORMED 05/12/18 20:30 Blood-Venous Blood Culture - Final NO GROWTH AFTER 5 DAYS 05/12/18 20:30 Blood-Venous Gram Stain - Final TEST NOT PERFORMED 05/12/18 06:00 Urine Urine Culture - Final No Growth (<1,000 CFU/ML) Most Recent Lab Values WBC 12.0 K/uL (4.8-10.8) H 05/25/18 06:21 RBC 3.65 Mil/uL (4.40-5.90) L 05/25/18 06:21 Hgb 9.8 g/dL (12.0-18.0) L 05/25/18 06:21 Hct 29.7 % (35.0-51.0) L 05/25/18 06:21 MCV 81.4 fL (80.0-94.0) 05/25/18 06:21 MCH 26.8 pg (27.0-31.0) L 05/25/18 06:21 MCHC 32.9 g/dL (33.0-37.0) L 05/25/18 06:21 RDW 13.7 % (11.5-14.5) 05/25/18 06:21 Plt Count 505 K/uL (130-400) H 05/25/18 06:21 MPV 6.4 fL (7.2-11.7) L 05/25/18 06:21 Neut % (Auto) 68.2 % (50.0-75.0) 05/25/18 06:21 Lymph % (Auto) 16.4 % (20.0-40.0) L 05/25/18 06:21 Gentry % (Auto) 9.1 % (0.0-10.0) 05/25/18 06:21 Eos % (Auto) 5.4 % (0.0-4.0) H 05/25/18 06:21 Baso % (Auto) 0.9 % (0.0-2.0) 05/25/18 06:21 Neut # (Auto) 8.2 K/uL (1.8-7.0) H 05/25/18 06:21 Lymph # (Auto) 2.0 K/uL (1.0-4.3) 05/25/18 06:21 Gentry # (Auto) 1.1 K/uL (0.0-0.8) H 05/25/18 06:21 Eos # (Auto) 0.6 K/uL (0.0-0.7) 05/25/18 06:21 Baso # (Auto) 0.1 K/uL (0.0-0.2) 05/25/18 06:21 Neutrophils % (Manual) 68 % (50-75) 05/23/18 07:20 Band Neutrophils % 10 % (0-2) H 05/23/18 07:20 Lymphocytes % (Manual) 9 % (20-40) L 05/23/18 07:20 Monocytes % (Manual) 8 % (0-10) 05/23/18 07:20 Eosinophils % (Manual) 4 % (0-4) 05/23/18 07:20 Basophils % (Manual) 1 % (0-2) 05/16/18 07:27 Myelocytes % 1 % (0-0) H 05/23/18 07:20 Toxic Granulation Present 05/19/18 11:31 Platelet Estimate Slightly increased (NORMAL) H 05/23/18 07:20 Large Platelets Present 05/15/18 07:22 Giant Platelets Present 05/15/18 07:22 RBC Morphology Normal 05/23/18 07:20 Polychromasia Slight 05/20/18 07:15 Hypochromasia (manual) Slight 05/20/18 07:15 Anisocytosis (manual) Slight 05/19/18 11:31 Ovalocytes Slight 05/14/18 07:39 ESR 70 mm/hr (0-15) H 05/13/18 08:07 PT 14.2 SECONDS (9.7-12.2) H 05/21/18 19:48 INR 1.3 05/21/18 19:48 APTT 48 SECONDS (21-34) H 05/21/18 19:48 Sodium 134 mmol/L (132-148) 05/25/18 06:21 Potassium 4.1 mmol/L (3.6-5.2) 05/25/18 06:21 Chloride 104 mmol/L (98-107) 05/25/18 06:21 Carbon Dioxide 24 mmol/L (22-30) 05/25/18 06:21 Anion Gap 10 (10-20) 05/25/18 06:21 BUN 4 mg/dL (9-20) L 05/25/18 06:21 Creatinine 0.6 mg/dL (0.8-1.5) L 05/25/18 06:21 Est GFR ( Amer) > 60 05/25/18 06:21 Est GFR (Non-Af Amer) > 60 05/25/18 06:21 Random Glucose 100 mg/dL (75-110) 05/25/18 06:21 Calcium 7.7 mg/dl (8.6-10.4) L 05/25/18 06:21 Phosphorus 3.3 mg/dL (2.5-4.5) 05/25/18 06:21 Magnesium 1.9 mg/dL (1.6-2.3) 05/25/18 06:21 Total Bilirubin 0.2 mg/dL (0.2-1.3) 05/25/18 06:21 AST 45 U/L (17-59) 05/25/18 06:21 ALT 48 U/L (21-72) 05/25/18 06:21 Alkaline Phosphatase 53 U/L (38-126) 05/25/18 06:21 Total Protein 5.5 g/dL (6.3-8.3) L 05/25/18 06:21 Albumin 2.5 g/dL (3.5-5.0) L 05/25/18 06:21 Globulin 3.0 gm/dL (2.2-3.9) 05/25/18 06:21 Albumin/Globulin Ratio 0.8 (1.0-2.1) L 05/25/18 06:21 Triglycerides 116 mg/dL (0-149) 05/18/18 06:38 Urine Color Straw (YELLOW) 05/18/18 22:46 Urine Clarity Clear (Clear) 05/18/18 22:46 Urine pH 5.0 (5.0-8.0) 05/18/18 22:46 Ur Specific Dennison 1.003 (1.003-1.030) 05/18/18 22:46 Urine Protein Negative mg/dL (NEGATIVE) 05/18/18 22:46 Urine Glucose (UA) Normal mg/dL (Normal) 05/18/18 22:46 Urine Ketones Negative mg/dL (NEGATIVE) 05/18/18 22:46 Urine Blood 1+ (NEGATIVE) H 05/18/18 22:46 Urine Nitrate Negative (NEGATIVE) 05/18/18 22:46 Urine Bilirubin Negative (NEGATIVE) 05/18/18 22:46 Urine Urobilinogen Normal mg/dL (0.2-1.0) 05/18/18 22:46 Ur Leukocyte Esterase Neg Genevieve/uL (Negative) 05/18/18 22:46 Urine WBC (Auto) 1 /hpf (0-5) 05/18/18 22:46 Urine RBC (Auto) < 1 /hpf (0-3) 05/18/18 22:46 Urine Bacteria Occ (<OCC) H 05/12/18 20:00 Gentamicin Peak 3.8 ug/mL (5.0-8.0) L 05/15/18 19:44 Gentamicin Trough < 0.6 ug/mL (0.0-0.9) 05/15/18 16:26 Blood Type O POSITIVE 05/22/18 10:40 Antibody Screen Negative 05/22/18 10:40 - Hospital Course Hospital Course: 05/12:Patient sent from [facility] for acute appendicitis to go to OR ([facility] OR currently shut down due to humidity issues). Patient c/o mild RLQ pain, started on monday. Given Zosyn at [facility] ER. Seen by Surgery 05/12: 32 Male abdominal pain since , acute perforated appendicitis with phlegmon/contained evolving abscess, with focal peritonitis, elevated WBC and fevers. NPO, broadspectrum antibiotics, IVF, monitor I/O. IR consult for drainage and source control. Continue non-operative management as long as patient responds to antibiotis and drainage. Threshold for operative exploration would be hemodynamic instability, persistent fevers, diffuse / worsening peritonitis. Will need interval appendectomy after discharge. 05/13:ID consulted. 05/14: Patient with repeat CT scan. Interval enlargement of abdominal collection noted. IR Consulted for drainage. IR recs: repeat CT in 2 days plan for drainage then as abscess is not accessible at present time 05/17: IR drainage completed. 20cc of purulent fluid drained. 05/20: Leukocytosis, trending up. CT Abd/ Pelvis obtained. New abdominal collections noted. Plan for surgery at this time. 05/22:s/p exploratory laparoscopy, lap appendectomy, drainage/removal of abdominal abscesses, abdominal wash out 05/24: Leukocytosis improving. ABIEL drain removed. 05/25: ABIEL #2 removed. As per ID recs pt to be D/c on Vantin and flagyl total of 10 days. Patient instructed to follow up in [facility] clinic. Above is a brief summary of patient's hospital course. For more specific details please refer to patient's medical records. Discharge Exam - Head Exam Head Exam: NORMOCEPHALIC - Eye Exam Eye Exam: Normal appearance - ENT Exam ENT Exam: Mucous Membranes Moist - Respiratory Exam Respiratory Exam: NORMAL BREATHING PATTERN - Cardiovascular Exam Cardiovascular Exam: +S1, +S2 - GI/Abdominal Exam GI & Abdominal Exam: Soft. absent: Distended, Firm, Guarding, Hernia, Rigid - Neurological Exam Neurological exam: Alert, Oriented x3 - Skin Skin Exam: Dry, Warm Additional comments: desquamation noted along abdominal region Discharge Plan - Discharge Medications Prescriptions: Acetaminophen [Tylenol 325mg tab] 650 mg PO Q8H #20 tab Cefpodoxime [Vantin] 200 mg PO Q12H #14 tab Docusate Sodium [Colace] 100 mg PO BID #60 capsule metroNIDAZOLE [Flagyl] 500 mg PO Q8H #21 tab - Follow Up Plan Condition: STABLE Disposition: HOME/ ROUTINE Instructions: Low Fiber Diet, Appendicitis, Adult (DC), Metronidazole (Systemic ), Exploratory Laparotomy (DC), Cefpodoxime, Managing Pain After Surgery, Laparoscopic Appendectomy (DC) Additional Instructions: Follow up in [facility] on May 29 1PM Follow up with Dr. Shelton in 10 days Referrals: Doni Shelton MD [Staff Provider] - Sasha Mueller MD [Staff Provider] -
[2018-05-25] MEDS: Fluconazole IV 200mg/100 ml NS 100 MG in Premixed IV 1 EA IVPB SCH (11:00)
== END 2018-05-25 16:40 | disposition home or self-care (01) | DRG 883 ==
LOC: C.ER 09:39 → C.9E 10:16 → C.6T 10:47
PROVIDERS: ADMIT Surgery; ATTEND Surgery
PROC: 0D9W30Z Drainage of Peritoneum with Drainage Device, Percutaneous Approach (ICD-10-PCS; principal; 2018-05-17 10:00)
PROC: 0D9W4ZZ Drainage of Peritoneum, Percutaneous Endoscopic Approach (ICD-10-PCS; 2018-05-22)
PROC: 0DTJ4ZZ Resection of Appendix, Percutaneous Endoscopic Approach (ICD-10-PCS; 2018-05-22 09:30)
DX: K35.3 Acute appendicitis with localized peritonitis (principal); E87.1 Hypo-osmolality and hyponatremia; K59.00 Constipation, unspecified; K57.30 Diverticulosis of large intestine without perforation or abscess without bleeding; L29.9 Pruritus, unspecified; K66.0 Peritoneal adhesions (postprocedural) (postinfection); F17.210 Nicotine dependence, cigarettes, uncomplicated